=== PATIENT | male | born 1950 | race Caucasian/White ===

== ENCOUNTER 2020-08-08 09:51 | Outpatient (CLI) | payer MEDICARE, SELFPAY ==
[2020-08-08 10:53] LABS: Hematocrit 45.7 % (42.0-52.0); Hemoglobin 15.2 g/dL (14.0-18.0); Mean Corpuscular HGB Conc 33.3 g/dl (32-36); Mean Corpuscular Hemoglobin 30.8 pg (26-34); Mean Corpuscular Volume 92.5 fl (80-100); Mean Platelet Volume 12.3 fl (7.4-10.4); Platelet Count Result 132 k/mm3 (150-375); Red Blood Count 4.94 M/mm3 (4.6-6.20); Red Cell Distribution Width 13.3 % (11.5-14.5); White Blood Count 6.2 K/mm3 (4.5-10.0)
[2020-08-08 11:10] LABS: Alanine Aminotransferase 52 U/L (4-50); Albumin Level 4.3 g/dL (3.5-5.1); Alkaline Phosphatase 74 U/L (38-126); Anion Gap 7 mmol/L (8-16); Aspartate Amino Transferase 51 U/L (17-59); Bilirubin,Total 0.7 mg/dL (0.2-1.3); Blood Urea Nitrogen 21 mg/dL (9-20); Calcium 9.5 mg/dL (8.4-10.2); Carbon Dioxide 28 mmol/L (22-30); Chloride 106 mmol/L (98-107); Cholesterol 157 mg/dL (0-200); Estimated Glomerular Filt Rate 55; Glucose 123 mg/dL (75-110); HDL Direct 32 mg/dL; Potassium 4.6 mmol/L (3.4-5.0); Sodium 141 mmol/L (137-145); Triglycerides 380 mg/dL (<150)
[2020-08-08 11:22] LABS: LDL Cholesterol Direct 64 mg/dL
[2020-08-08 11:42] LABS: Prostate Specific Antigen 2.3 ng/mL (< OR = 4.0)
== END 2020-08-08 09:52 | disposition home or self-care (01) ==
PROVIDERS: PCP Physician Assistant; Referring Provider Internal Medicine Cardiovascular Disease; Visit Provider Physician Assistant
DX: R53.83 Other fatigue (principal); E78.5 Hyperlipidemia, unspecified; R35.1 Nocturia
CPT/HCPCS: 36415; 80053; 80061; 84153; 84443; 85027

== ENCOUNTER 2020-12-08 13:17 | Outpatient (CLI) | payer MEDICARE, SELFPAY | END 2020-12-08 13:18 | disposition home or self-care (01) | LOC: ANHCOVIDVC 13:17 | PROVIDERS: PCP Physician Assistant | DX: Z23 Encounter for immunization (principal) | CPT/HCPCS: 0001A; 91300 ==

== ENCOUNTER 2020-12-29 13:18 | Outpatient (CLI) | payer MEDICARE, SELFPAY | END 2020-12-29 13:19 | disposition home or self-care (01) | LOC: ANHCOVIDVC 13:18 | PROVIDERS: PCP Physician Assistant | DX: Z23 Encounter for immunization (principal) | CPT/HCPCS: 0002A; 91300 ==

== ENCOUNTER 2021-02-13 12:39 | Observation (INO) | payer MEDICARE, SELFPAY ==
[2021-02-13] VITALS (7 sets, daily range): BP systolic 124–161; BP diastolic 69–91; PULSE 61–72; RESP 16–24; TEMP 36.1–36.7; O2SAT 97–100; BMI 33.1
--- NOTE | ~2021-02-13 | XR_ITS ---
EXAMINATION: XR chest 2V DATE: 02/13/2021 13:30 INDICATION: Chest pain with inspiration. TECHNIQUE: Frontal and lateral views of the chest were obtained. COMPARISON: Chest 2 views 12/02/2016, chest CT 12/18/2016 FINDINGS: There are small pleural effusions. There are airspace opacities in right mid and lower lung zones and at right lung base. No pneumothorax. Cardiomegaly is noted. IMPRESSION: 1. Small pleural effusions. 2. Airspace opacities in right mid and lower lung zones and at left lung base, consistent with atelec tasis versus pneumonia. 3. Cardiomegaly. Reviewed, dictated and finalized at location B. IMPRESSION: 1. Small pleural effusions. 2. Airspace opacities in right mid and lower lung zones and at left lung base, consistent with atelectasis versus pneumonia. 3. Cardiomegaly.
--- NOTE | ~2021-02-13 | CT_ITS ---
EXAMINATION: CTA chest PE protocol EXAM DATE: 02/13/2021 20:45 INDICATION: Shortness of breath and chest pain with inspiration. TECHNIQUE: Spiral CTA of the chest (pulmonary arteries) was performed with 100 cc Omnipaque 350 intr avenous contrast injection. Images were acquired during the pulmonary arterial phase. Coronal maxi mum intensity projection 3D-reconstructions were created by the technologist on dedicated workstation . Axial, coronal and sagittal reformatted images were reviewed. The dose-length product (DLP) for t his examination was 818.24 mGy-cm. The exposure was tailored according to patient size (auto mA exp osure control), and iterative reconstruction (ASIR) was used as additional dose reduction technique. Comparison is made to prior examination from 12/18/2016. FINDINGS: Pulmonary arteries are well opacified and without intraluminal filling defects. No thora cic aortic dissection. There is cardiomegaly. There is small to moderate right, and a small left pleural effusion. There is adjacent segmental atelectasis. No suspicion of pneumonia or lung cancer. Tracheobronchial tree is pa tent. There is no mediastinal, hilar or axillary lymphadenopathy. There is no pneumothorax. T here is mild coronary arterial calcification, arterial sclerosis. There is hepatic steatosis. Periph erally calcified 9 mm splenic hilar aneurysm. There is mild thoracic spondylosis without osteoblasti c or osteolytic lesions identified. There is diffuse idiopathic skeletal hyperostosis. IMPRESSION: 1. Cardiomegaly, small to moderate right and small left pleural effusions. Adjacent segmental atelec tasis. 2. Splenic hilar 9 mm aneurysm. 3. Hepatic steatosis. 4. No pulmonary emboli. Reviewed, dictated and finalized at location A. IMPRESSION: 1. Cardiomegaly, small to moderate right and small left pleural effusions. Adj acent segmental atelectasis. 2. Splenic hilar 9 mm aneurysm. 3. Hepatic steatosis. 4. No pulmonary emboli.
--- NOTE | 2021-02-13 13:24 | ECG_ITS ---
Measurements Intervals [place] Rate: 64 P: 19 ID: [id number] QRS: -2 QRSD: 95 T: 22 QT: 426 QTc: 440 Interpretive Statements SINUS RHYTHM DELAYED PRECORDIAL R/S TRANSITION VOLTAGE CRITERIA FOR LVH BORDERLINE ECG Electronically Signed On 02-13-2021 13:59:23 CDT by Bryant Hernandez D.O.
[2021-02-13 13:55] LABS: Basophils Percent Auto 0.1 % (0.2-1.2); Eosinophils Absolute Auto 0.3 K/mm3 (0-0.3); Eosinophils Percent Auto 3.6 % (0-4.4); Hematocrit 39.6 % (42.0-52.0); Hemoglobin 13.1 g/dL (14.0-18.0); Immature Granulocyte Absolute 0.05 K/mm3 (0.00-0.031); Immature Granulocyte Percent A 0.7 % (0-0.5); Lymphocytes Absolute Auto 0.82 K/mm3 (0.9-3.2); Lymphocytes Percent Auto 10.9 % (18.3-44.2); Mean Corpuscular HGB Conc 33.1 g/dl (32-36); Mean Corpuscular Hemoglobin 30.3 pg (26-34); Mean Corpuscular Volume 91.5 fl (80-100); Mean Platelet Volume 11.7 fl (7.4-10.4); Monocytes Absolute Auto 0.7 K/mm3 (0.1-0.6); Monocytes Percent Auto 9.2 % (2.6-8.5); Neutrophils Absolute Auto 5.7 K/mm3 (1.3-6.7); Neutrophils Percent Auto 75.5 % (45.5-73.1); Platelet Count Result 119 k/mm3 (150-375); Red Blood Count 4.33 M/mm3 (4.6-6.20); White Blood Count 7.5 K/mm3 (4.5-10.0)
[2021-02-13 14:05] LABS: Partial Thromboplastin Time 26.8 SECONDS (22.3-36.8); Prothrombin Time 13.4 Seconds (11.1-14.7)
[2021-02-13 15:13] LABS: Anion Gap 6 mmol/L (8-16); Blood Urea Nitrogen 19 mg/dL (9-20); Calcium 8.9 mg/dL (8.4-10.2); Carbon Dioxide 28 mmol/L (22-30); Chloride 107 mmol/L (98-107); Estimated CRCL calculation 66 ml/min; Estimated Glomerular Filt Rate > 60; Glucose 109 mg/dL (75-110); Potassium 3.9 mmol/L (3.4-5.0); Sodium 141 mmol/L (137-145)
[2021-02-13 15:24] LABS: Troponin I < 0.012 ng/mL (0.000-0.034)
[2021-02-13 17:16] LABS: Troponin I < 0.012 ng/mL (0.000-0.034)
--- NOTE | 2021-02-13 17:20 | PC.NURSE ---
x1 week upper chest pain that comes with taking deep breath , PCP told pt to come to ED for eval, denies N/V, denies sick contacts. NSR on monitor, 97% RA sats non-labored respirations. 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
--- NOTE | 2021-02-13 17:29 | ED.GENADULT ---
HPI - General Adult General Chief complaint: Chest Pain Stated complaint: chest pain x1 week Time Seen by Provider: 02/13/21 17:16 Source: patient History of Present Illness HPI narrative: Patient is a 70 y/o male complaining of chest pain starting 1 week ago. He describes his pain as pressure and rates it as 3/10. There is no pain radiation. He states that taking a deep breath worsens the pain. Related Data Home Medications Medication Instructions Recorded Confirmed metoprolol succinate 25 mg 25 mg PO DAILY 01/11/20 02/13/21 tablet,extended release 24 hr ffvhjwpu-kcha-cnulx acid 400 1 tablet PO DAILY 01/11/20 02/13/21 mcg-lycopene 300 mcg-ginkgo 120 mg tablet psyllium husk 0.52 gram capsule 0.52 gm PO BID 01/11/20 02/13/21 glucosamine sulfate [Glucosamine] 500 mg PO BID 02/13/21 02/13/21 lisinopril 10 mg PO DAILY 02/13/21 02/13/21 Allergies Allergy/AdvReac Type Severity Reaction Status Date / Time No Known Allergies Allergy Verified 02/13/21 23:29 Review of Systems Constitutional: Constitutional: Denies chills, Denies fever(s), Denies headache(s) and Denies weakness Eyes: Eyes: Denies blurry vision ENT: Denies headache(s) and Denies neck pain Cardiovascular: Cardiovascular: Reports chest pain and Denies dyspnea Respiratory: Respiratory: Denies cough and Denies dyspnea Gastrointestinal: Gastrointestinal: Denies abdominal pain, Denies diarrhea, Denies nausea and Denies vomiting Genitourinary: Genitourinary: Denies hematuria and Denies dysuria Musculoskeletal: Musculoskeletal: Denies back pain and Denies neck pain Neurologic: Denies headache(s) and Denies weakness [facility] Surgical History Surgical History H/O repair of rotator cuff H/O umbilical hernia repair History of penile implant Family History Family History Mother No problems noted. Father Family history of congestive heart failure Sibling Alcohol abuse Liver transplant recipient Father No problems noted. Mother No problems noted. Sibling No problems noted. Sibling No problems noted. Sibling No problems noted. Social History Social History Smoking status: Never smoker Second hand tobacco smoke exposure: No Alcohol intake: current Substance use: never Spiritual care concerns: Yes (Shinto) Exam Const: General: no acute distress and well developed Orientation/consciousness: oriented to person, oriented to place, oriented to time and patient oriented x3 HENMT: Head: normocephalic Ears: external ears normal General nose exam: Normal external nose present Eyes: General: appearance normal, both eyes and all related structures Conjunctivae: conjunctivae normal Neck: Neck: normal visual inspection and full ROM Chest: Chest palpation & inspection: normal inspection of the chest and no tenderness Resp: Effort & Inspection: normal respiratory effort Auscultation: clear to auscultation bilaterally Cardio: Rate: regular rate Rhythm: regular rhythm GI: GI Palp: No abdominal tenderness and Yes Soft to palpation Skin: General skin exam: normal color and turgor normal Neuro: General: oriented to person, oriented to place, oriented to time and patient oriented x3 Cognition (Neuro): normal cognition Extrem: General: normal to inspection, full ROM and no pedal edema Psych: Appearance: grossly normal Mental Status: mental status grossly normal Affect: normal affect Course Consultations Consultation #1: Discussed with Dr. Nunez, who agrees to admit. Date: 02/13/21 Time: 21:41 Vital Signs Vital signs: Vital Signs Temperature 36.7 C 02/13/21 13:32 Pulse Rate 65 02/13/21 13:32 Respiratory Rate 16 02/13/21 13:32 Blood Pressure 124/69 02/13/21 13:32 Pulse Oximetry 100 02/13/21 13:32
[2021-02-13 19:03] LABS: D Dimer 0.76 ug/mL (<0.48)
[2021-02-13 21:03] LABS: NT Pro B Type Natriuretic Pept 126 pg/mL (5-100)
[2021-02-13] MEDS: FUROSEMIDE INJ 40 MG/4 ML VIAL 20 MG IV PUSH (22:15)
[2021-02-13 23:07] LABS: Troponin I < 0.012 ng/mL (0.000-0.034)
[2021-02-14] VITALS (12 sets, daily range): BP systolic 112–119; BP diastolic 64–71; PULSE 62–79; RESP 16–20; TEMP 35.7–36.4; O2SAT 92–100
--- NOTE | 2021-02-14 | ECHO_ITS ---
Patient Info Name: Aj Sosa Age: 70 years : 1950 Gender: Male Ht: 69 in Wt: 224 lbs BSA: 2.26 m2 HR: 56 bpm BP: 112 / 71 mmHg Technical Quality: Good Exam Date: 02/14/2021 1:04 PM Exam Location: [facility] Patient Status: Inpatient Admit Date: 02/13/2021 Staff Ordering Physician: Jay Dowling MD Supervisor Doping: Rikki Briceño, MONICA, RT Attending Provider: Wyatt Nunez MD Exam Type: CA echo doppler color flow Study Info Indications R07.89 - Other chest pain Complete two-dimensional, color flow and Doppler transthoracic echocardiogram is performed. Summary 1. Complete two-dimensional, color flow and Doppler transthoracic echocardiogram is performed. 2. Left ventricular systolic function is normal, estimated at 55-60%. 3. There is trace mitral valve regurgitation. Left Ventricle Left ventricular systolic function is normal, estimated at 55-60%. Left ventricular chamber dimension is normal. There is no increased left ventricular wall thickness. The left ventricular diastolic function is normal. Right Ventricle Right ventricular chamber dimension is normal. Right ventricular systolic function is normal. Left Atria Left atrial chamber dimension is normal. Right Atria Right atrial chamber dimension is normal. Aortic Valve The aortic valve is trileaflet. There is no aortic valve stenosis. There is no aortic valve regurgitation. Mitral Valve The mitral valve has normal leaflets. There is trace mitral valve regurgitation. There is no mitral valve stenosis. Tricuspid Valve There is mild tricuspid valve regurgitation. No pulmonary hypertension, estimated pulmonary arterial systolic pressure is 22 mmHg. Pericardium/Pleural The pericardium appears normal. There is no pericardial effusion. Left Ventricular Outflow Tract Name Value Normal LVOT 2D LVOT Diameter 2.4 cm LVOT Doppler LVOT Peak Gradient 3 mmHg LVOT Mean Gradient 2 mmHg LVOT VTI 20 cm LVOT VTI/AV VTI Ratio 0.9 LVOT Stroke Volume 93 ml LVOT CO 17.0 l/min LVOT CI 7.5 l/min/m2 Pulmonic Valve Name Value Normal PV Doppler PV Peak Gradient 4 mmHg Mitral Valve Name Value Normal MV Doppler MV Decel Bureau 128 cm/s2 MV PHT 99 ms MV Area (PHT) 2.2 cm2 4.0-5.0 MV Diastolic Function
--- NOTE | 2021-02-14 01:46 | ADMGEN ---
This patient, Aj Sosa Jr., was admitted to IMU Room 210-01. Patient/family oriented to hospital policies and general routines including ID bracelet, bed and alarms, visiting hours, pain management, procedures, bathroom and other care routines, personal items, smoking policy, room service/diet, and visiting hours. Information on how to activate the Rapid Response Team has been discussed. Patient/Family are encouraged to report perceived risks to care and to ask questions if they do not understand what they are told or what they should do.
--- NOTE | 2021-02-14 02:56 | ECG_ITS ---
Measurements Intervals [place] Rate: 68 P: 12 [place]: 171 QRS: 0 QRSD: 94 T: 22 QT: 412 QTc: 438 Interpretive Statements SINUS RHYTHM NORMAL ECG Electronically Signed On 02-14-2021 7:06:07 CDT by Bryant Hernandez D.O.
[2021-02-14] MEDS: HYDROcodone/acetaminophen (*CRX) 5-325 MG TABLET 1 TAB PO (03:35)
--- NOTE | 2021-02-14 03:35 | PM.IMHP ---
H&P: HPI History of Present Illness Date/Time: 02/14/21 03:35 Chief Complaint: chest pain Narrative: Patient is a 70 y/o male complaining of chest pain starting 1 week ago. He describes his pain as sharp shootin gpain whic is diffusely present all over his chest, occurs especially when he takes deep breath. he was told to take advil which he did but it did not help and he contacted his doctor again and advised him to come to the ED. he denes any cough or fever, chills, no leg swelling. no shortness of breath. ED evalutation with normal ekg, tronopnis negaitve. bnp mildly elevated. d dimer was elevated. CXR with bialteral small pleural effusion, airspace opacities in right mid and lwoer lungzone and at left lung basee, consistent with atelectasis vs pneumonia along with cardiomegatly. CT A done showed no PE, there is noted cardiomeglay, small to mdoerate righ tnad small left pleural effusion with segmental atelectasis, no pneuonia or lyphadnoeaphty or ptx. mild coroanry artery calcification arterial scleoris snoted. There is hepatic steatosis ntoed. he is admitted for further evlauation and management. Review of Systems Review of Systems: Narrative: - CONSTITUTIONAL: Denies weight loss, fever and chills. - HEENT: Denies changes in vision and hearing - RESPIRATORY: Denies SOB and cough. - CV: Denies palpitations and reports CP. - GI: Denies abdominal pain, nausea, vomiting and diarrhea. - : Denies dysuria and urinary frequency. - MSK: Denies myalgia and joint pain. - SKIN: Denies rash and pruritus. - NEUROLOGICAL: Denies headache and syncope. - PSYCHIATRIC: Denies recent changes in mood. Denies anxiety and depression. All systems reviewed & are unremarkable except as noted in HPI and below [facility] Surgical History Surgical History H/O repair of rotator cuff H/O umbilical hernia repair History of penile implant Family History Family History (Updated 02/13/21 @ 23:24 by Yomaira Moulton RN) Mother No problems noted. Father Family history of congestive heart failure Sibling Alcohol abuse Liver transplant recipient Father No problems noted. Mother No problems noted. Sibling No problems noted. Sibling No problems noted. Sibling No problems noted. Social History Social History Smoking status: Never smoker Second hand tobacco smoke exposure: No Alcohol intake: current Substance use: never Spiritual care concerns: Yes (Samaritan) Meds Home Medications and Allergies Home Medications Medication Instructions Recorded Confirmed Type metoprolol succinate 25 mg 25 mg PO DAILY 01/11/20 02/13/21 History tablet,extended release 24 hr jcxunlpn-sjsj-jfqgw acid 400 1 tablet PO DAILY 01/11/20 02/13/21 History mcg-lycopene 300 mcg-ginkgo 120 mg tablet psyllium husk 0.52 gram capsule 0.52 gm PO BID 01/11/20 02/13/21 History glucosamine sulfate [Glucosamine] 500 mg PO BID 02/13/21 02/13/21 History lisinopril 10 mg PO DAILY 02/13/21 02/13/21 History Allergies Allergy/AdvReac Type Severity Reaction Status Date / Time No Known Allergies Allergy Verified 02/13/21 23:29 Vital Signs Vital Signs - 24 hr 02/13/21 13:32 02/13/21 17:18 02/13/21 20:05 Temperature 98.1 F Pulse Rate 65 61 65 Respiratory Rate 16 20 24 H Blood Pressure 124/69 139/78 150/91 H Pulse Oximetry 100 97 99 02/13/21 21:25 02/13/21 22:53 02/13/21 23:05 Temperature 96.9 F L Pulse Rate 65 69 71 Respiratory Rate 20 20 20 Blood Pressure 142/84 H 161/88 H 150/82 H Pulse Oximetry 97 97 100 02/13/21 23:16 02/14/21 00:00 02/14/21 00:12 Temperature Pulse Rate 72 74 79 Respiratory Rate Blood Pressure Pulse Oximetry 92 02/14/21 00:13 02/14/21 02:00 02/14/21 02:44 Temperature Pulse Rate 79 73 66 Respiratory Rate Blood Pressure
[2021-02-14] MEDS: METOPROLOL SUCCINATE EXT REL 25 MG TABCR PO (08:13)
[2021-02-14] MEDS: FUROSEMIDE 20 MG TABLET PO (08:13)
[2021-02-14] MEDS: ASPIRIN 81 MG ENTERIC TABLET PO (08:13)
[2021-02-14] MEDS: lisinopriL 10 MG TABLET PO (08:13)
[2021-02-14] MEDS: THERAPEUTIC MULTIVITAMINS/MINERALS TAB (*BKC) 1 TABLET PO (08:13)
[2021-02-14] MEDS: AZITHROMYCIN 250 MG TABLET 500 MG PO (08:13)
[2021-02-14] MEDS: PANTOPRAZOLE 40 MG TABLET PO (08:14)
[2021-02-14] MEDS: ENOXAPARIN 40 MG/0.4 ML SYRINGE SUB-Q (08:14)
[2021-02-14 08:42] LABS: Hematocrit 41.6 % (42.0-52.0); Hemoglobin 13.7 g/dL (14.0-18.0); Mean Corpuscular HGB Conc 32.9 g/dl (32-36); Mean Corpuscular Hemoglobin 29.7 pg (26-34); Mean Corpuscular Volume 90.2 fl (80-100); Mean Platelet Volume 11.9 fl (7.4-10.4); Platelet Count Result 142 k/mm3 (150-375); Red Blood Count 4.61 M/mm3 (4.6-6.20); White Blood Count 7.4 K/mm3 (4.5-10.0)
--- NOTE | 2021-02-14 08:50 | PM.CNCAR ---
Assessment and Plan Assessment and plan (1) Atypical chest pain: Code(s): R07.89 - Other chest pain Status: Acute Assessment and Plan: Pain is atypical in nature seems to be pleuritic in nature likely is due to pleurisy, so far cardiac enzymes are negative, EKG is unremarkable. Will get echocardiogram to look for any structural heart disease, if it is negative he would benefit from outpatient stress test, he has follow-up with his own stem sizer at [place], he can follow up there, otherwise he can follow up in our office if he wishes to and we can do an outpatient stress test at that stage. Currently his pain is likely due to pleurisy, would recommend p.r.n. ibuprofen for that, and close follow-up for the effusion (2) BMI 35.0-35.9,adult: Code(s): Z68.35 - Body mass index [BMI] 35.0-35.9, adult Status: Acute (3) Bilateral pleural effusion: Code(s): J90 - Pleural effusion, not elsewhere classified Status: Acute Assessment and Plan: He has bilateral effusion, and he has signs of pleurisy, causing some chest pain, p.r.n. ibuprofen for that, he needs to see Pulmonary either as an inpatient now to get him connected or as close follow-up as an outpatient, to consider workup for that, with possible pleural tap at some point. Please arrange for pulmonary evaluation either as an outpatient or before discharge (4) Insomnia: Qualifiers: Insomnia type: unspecified Qualified Code(s): G47.00 - Insomnia, unspecified Code(s): G47.00 - Insomnia, unspecified Status: Acute (5) Obstructive sleep apnea: Code(s): G47.33 - Obstructive sleep apnea (adult) (pediatric) Status: Acute Additional Plan Thank you for allowing me to participate in this patient's care, I will be following up with you. Please do not hesitate to call me for any other inquiry History of Present Illness History of Present Illness Consult date/time: 02/14/21 08:50 70 YEARS OLD GENTLEMAN WITH HISTORY OF HYPERTENSION, came to the hospital because of chest pain and shortness breath. He started having chest pain yesterday mostly bilateral chest pain but more so on the left side, seems to be pleuritic in nature as a get worse with deep inspiration. Pain improved after he was admitted to the hospital. CT of the chest was done in view of suspected PE was negative for PE and showed no significant dilatation of the aorta, he has history of known small thoracic aneurysm for which he sees stem sizer at [place], last echo was done and showed aortic root at 4.3 cm, however on the CT the aortic root size seems to be normal. His CT showed bilateral pleural effusion more so on the left side. So far cardiac enzymes are negative and EKG is unremarkable. No history of known coronary artery disease he had stress test in the past but it has been several years. No orthopnea no PNDs, no leg swelling. He has history of obstructive sleep apnea for which he is on CPAP and he takes it with him anywhere he goes and he uses regularly Reason For Visit: chest pain, pleural effusion Review of Systems Constitutional: Constitutional: Reports fatigue and Denies fever(s) Cardiovascular: Cardiovascular: Reports as per HPI Respiratory: Respiratory: Reports as per HPI [facility] Surgical History Surgical History H/O repair of rotator cuff H/O umbilical hernia repair History of penile implant Family History Family History Mother No problems noted. Father Family history of congestive heart failure Sibling Alcohol abuse Liver transplant recipient Father No problems noted. Mother No problems noted. Sibling No problems noted. Sibling No problems noted. Sibling No problems noted. Social History Social History Smoking stat
[2021-02-14 08:53] LABS: Alanine Aminotransferase 18 U/L (4-50); Alkaline Phosphatase 66 U/L (38-126); Anion Gap 6 mmol/L (8-16); Aspartate Amino Transferase 25 U/L (17-59); Bilirubin,Total 1.2 mg/dL (0.2-1.3); Blood Urea Nitrogen 23 mg/dL (9-20); Calcium 9.3 mg/dL (8.4-10.2); Carbon Dioxide 29 mmol/L (22-30); Chloride 104 mmol/L (98-107); Estimated CRCL calculation 60 ml/min; Estimated Glomerular Filt Rate 60; Glucose 107 mg/dL (75-110); Sodium 139 mmol/L (137-145)
[2021-02-14] MEDS: IBUPROFEN 200 MG TABLET PO (10:37)
--- NOTE | 2021-02-14 11:47 | PM.CNPUL ---
Assessment and Plan Assessment and plan (1) Bilateral pleural effusion: Code(s): J90 - Pleural effusion, not elsewhere classified Status: Acute Assessment and Plan: Patient with bilateral right greater than left pleural effusion and bilateral pleuritic chest pain. Patient has no evidence of infection, fluid overload or renal failure at this time. The patient does have exposure to parakeets which started 1-2 days prior to him developing pleuritic chest pain. The right pleural effusion is large and considered small to moderate in size. The patient has no respiratory symptoms other than pleuritic chest pain and is not short of breath with room air saturations at 96%. At this point I do not feel there is a need for thoracentesis. I have recommended that he removed the parakeets from his house. I have recommended that he can use ibuprofen 600 mg p.o. Q 6-8 hours p.r.n. and Tylenol 1000 mg p.o. Q 6-8 hours p.r.n. to control his pain. He can follow up in the Pulmonary Clinic in 6 weeks and I will repeat a chest x-ray at that time. I gave him our business card and informed our radiology scheduler. Will sign off, please call for additional questions. (2) Obstructive sleep apnea: Code(s): G47.33 - Obstructive sleep apnea (adult) (pediatric) Status: Acute Assessment and Plan: Patient has long history of obstructive sleep apnea for approximately 20 years. Patient is clinically stable and his nasal mask CPAP of about 10 per his report. This helps him sleep and he feels more refreshed when he wears the mask. Recommend to continue his home machine while in the hospital. History of Present Illness History of Present Illness Consult date: 02/14/21 Requesting physician: Allie Montgomery MD Reason for consult: pleural effusion Chief complaint: chest pain, pleural effusion Narrative: This is a new patient consult for bilateral pleural effusions and pleuritic chest pain. This is a 70-year-old man with a history of obstructive sleep apnea for 20 years on nasal mask CPAP he believes at a pressure of 10 who presents with pleuritic chest pain. At baseline patient has no respiratory limitations in his activities of daily living. Patient states he can walk 2-4 blocks and stops for hip pain but has no respiratory complaints. Currently patient states that approximately 7 days ago he developed right-sided chest pain that was worsened with deep breathing coughing and sneezing. Patient then developed left-sided chest pain again worse with deep breathing coughing and sneezing that radiated to his left shoulder. The pain would come and go and was worse with respiratory exertion and certain movements. Worse when he lays down. Patient had a chest x-ray with bilateral pleural effusions and a CT angiogram of the chest that showed no pulmonary embolism and right greater than left pleural effusion with associated atelectasis but no evidence of a pneumonia. Patient denies fever, chills, rigors, phlegm production, hemoptysis. Patient denies any dyspnea on exertion or rest shortness of breath. Patient denies any pedal edema, has chronic 1 pillow orthopnea and has no paroxysmal nocturnal dyspnea. Patient has no weight loss. Patient denies rashes or arthritis. Interestingly patient tells me that 1-2 days before the chest pain started they brought a parakeet into his bedroom which was going to be a gift for his [id number]. This parakeet approximately 4 days after they purchased it. The family then bought a pair of parakeets from the same pet store and brought them home and put them in the patient's bedroom. This para parakeets was brought to the house about 4-5 days prior to presentation. They gave the parakeets to the [id number] move them out of the bedroom about 3 days prior to admission. One of these parakeets 2 days prior to admission. Patient also has a dog for 8 years, 1 cat for 4-[address] for 1-2 years.
[2021-02-14] MEDS: ACETAMINOPHEN 500 MG TABLET 1000 MG PO (13:25)
--- NOTE | 2021-02-14 13:55 | PM.IMPN ---
Progress Note: A&P Assessment and Plan (1) Bilateral pleural effusion: Code(s): J90 - Pleural effusion, not elsewhere classified Status: Acute (2) Cardiomegaly: Code(s): I51.7 - Cardiomegaly Status: Acute (3) Chest pain: Code(s): R07.9 - Chest pain, unspecified Status: Acute Additional Plan # Pleuritic chest pain:cta negative. ekg within normal limits. troponin negative. cta with cardiomegaly and small to moderate pleural effusion noted. ? new cardiomyopathy and chf. will get echo and cardiac evaluation. a dose of lasix given in the ed. will await cardiac evaluation. not sure if there is any underlhying pneumoina. no pumonary symptosm per se. however symtposm suggestive of pleuritis. ? GERD related. will place on ppi. place on aspirin 81 mg po daily. will empirically place on antibiotics (azithromycin) though no wbc count or fever or cough noted. may need pulmonary evaluation. # bilateral plelural effusion: ? chf related. diuresis gentle. echo. cardiac evaluation. follow up chest xray. # ANGEL on CPAP # hx of repair of rotator cuff # hx of umbilcial hernia repair # HTN:home medications. # Ascending aortic dilation, 4 cm, being followed as op basis, follows cardiology. # ECHO 05/25: LA midlly dilated, Normal RV size and function, LV cavity is nromal. mild concentric LV hypertrophy hyperdynamic LVEF 73%. # DVT proph: lovenox Subjective Date/time seen: 02/14/21 13:55 Objective Data Vital Signs Vital Signs: Vital Signs - 24 hr 02/13/21 17:18 02/13/21 20:05 02/13/21 21:25 Temperature Pulse Rate 61 65 65 Respiratory Rate 20 24 H 20 Blood Pressure 139/78 150/91 H 142/84 H Pulse Oximetry 97 99 97 02/13/21 22:53 02/13/21 23:05 02/13/21 23:16 Temperature 96.9 F L Pulse Rate 69 71 72 Respiratory Rate 20 20 Blood Pressure 161/88 H 150/82 H Pulse Oximetry 97 100 02/14/21 00:00 02/14/21 00:12 02/14/21 00:13 Temperature Pulse Rate 74 79 79 Respiratory Rate Blood Pressure Pulse Oximetry 92 92 02/14/21 02:00 02/14/21 02:44 02/14/21 04:00 Temperature 97.6 F Pulse Rate 73 66 71 Respiratory Rate 18 Blood Pressure 119/70 Pulse Oximetry 94 100 02/14/21 06:00 02/14/21 08:00 02/14/21 08:13 Temperature Pulse Rate 65 64 67 Respiratory Rate Blood Pressure Pulse Oximetry 96 02/14/21 08:32 02/14/21 10:00 02/14/21 12:00 Temperature 96.3 F L 96.8 F L Pulse Rate 65 68 62 Respiratory Rate 20 16 Blood Pressure 112/71 114/64 Pulse Oximetry 96 96 Intake/Output Intake/Output: Intake & Output 02/11/21 02/12/21 02/13/21 02/14/21 23:59 23:59 23:59 23:59 Intake Total 960 Output Total 1500 Balance -540 Meds/Results Medications: Active Medications Generic Name Dose Route Start Last Admin Trade Name Freq PRN Reason Stop Dose Admin Acetaminophen 1,000 mg 02/14/21 12:31 02/14/21 13:25 Acetaminophen 500 Mg Tablet PO 1,000 mg Q6H PRN Administration Mild Pain (1-3) or Fever Aspirin 81 mg 02/14/21 09:00 02/14/21 08:13 Aspirin 81 Mg Enteric Tablet PO 81 mg QAM MILAGROS Administration Azithromycin 500 mg 02/14/21 09:00 02/14/21 08:13 Azithromycin 250 Mg Tablet PO 500 mg DAILY MILAGROS Administration Enoxaparin Sodium 40 mg 02/14/21 09:00 02/14/21 08:14 Enoxaparin 40 Mg/0.4 Ml Syringe SUB-Q 40 mg DAILY MILAGROS Administration Furosemide 20 mg 02/14/21 09:00 02/14/21 08:13 Furosemide 20 Mg Tablet PO 20 mg DAILY MILAGROS Administration Ibuprofen 600 mg 02/14/21 12:04 Ibuprofen 600 Mg Tablet PO Q6H PRN Muscle/Joint Pain Lisinopril 10 mg 02/14/21 09:00 02/14/21 08:13 Lisinopril 10 Mg Tablet PO 10 mg DAILY MILAGROS Administration Metoprolol Succinate 25 mg 02/14/21 09:00 02/14/21 08:13 Metoprolol Succinate Ext Rel 25 Mg Tabcr PO 25 mg DAILY MILAGROS Administration Multivitamins/Calcium 1 tablet 02/14/21 09:00 02/14/21 08:13 Therapeutic Multivitamins/Mine
--- NOTE | 2021-02-14 18:44 | PM.DS ---
DS: Admitting Diagnosis Admitting Diagnosis Admitting Diagnosis: Chest pain DS: Discharge Diagnosis Discharge Diagnosis (1) Bilateral pleural effusion: Code(s): J90 - Pleural effusion, not elsewhere classified Status: Acute (2) Cardiomegaly: Code(s): I51.7 - Cardiomegaly Status: Acute (3) Chest pain: Code(s): R07.9 - Chest pain, unspecified Status: Acute DS: Summary Hospital Course Reason for hospitalization: Chief Complaint: chest pain Narrative: Patient is a 70 y/o male complaining of chest pain starting 1 week ago. He describes his pain as sharp shootin gpain whic is diffusely present all over his chest, occurs especially when he takes deep breath. he was told to take advil which he did but it did not help and he contacted his doctor again and advised him to come to the ED. he denes any cough or fever, chills, no leg swelling. no shortness of breath. ED evalutation with normal ekg, tronopnis negaitve. bnp mildly elevated. d dimer was elevated. CXR with bialteral small pleural effusion, airspace opacities in right mid and lwoer lungzone and at left lung basee, consistent with atelectasis vs pneumonia along with cardiomegatly. CT A done showed no PE, there is noted cardiomeglay, small to mdoerate righ tnad small left pleural effusion with segmental atelectasis, no pneuonia or lyphadnoeaphty or ptx. mild coroanry artery calcification arterial scleoris snoted. There is hepatic steatosis ntoed. he is admitted for further evlauation and management. Hospital Course: Patient is 70-year-old male presented emergency department with a complaint chest pain patient was seen by Cardiology stated 3 sets of cardiac enzymes are negative and there is no acute changes on EKG myocardial infarction is ruled out, suspect patient chest pain is caused by pleuritic chest pain due to bilateral pleural effusion recommended to consult weapons and tactics instructor, patient was seen by weapons and tactics instructor suggested patient does not need thoracentesis, and does have sleep apnea and will need further follow-up as an outpatient, patient is clinically stable will discharge the patient today Status at Discharge Functional status at discharge: independent ambulation Overall status at discharge: patient is back to baseline Time Spent with Patient Time attestation: Total time spent providing and/or coordinating discharge services: Patient was seen and examined at the time of the discharge Condition at discharge is stable Code status: Full code. Time spent preparing discharge summary, discharge medications, discussing discharge planning with caseworker intake and patient is 35 minutes. Time spent: Greater than 30 minutes Exam Narrative: Exam Narrative: Moderately obese Patient is comfortable, NAD HEENT: eyes are clear and none icteric LUNGS:CTA HEART: RR S1S2 ABD: BS+, Soft and nontender Lower extremities: no edema SKIN: nonjaundiced Neuro: grossly intact. DS: Data Data Completed and Pending Labs on day of discharge: Labs from last 24 hours 02/14/21 02/14/21 02/13/21 07:50 07:50 22:41 WBC 7.4 RBC 4.61 Hgb 13.7 L Hct 41.6 L MCV 90.2 MCH 29.7 MCHC 32.9 RDW 13.0 Plt Count 142 L MPV 11.9 H D-Dimer Sodium 139 Potassium 4.0 Chloride 104 Carbon Dioxide 29 Anion Gap 6 L BUN 23 H Creatinine 1.20 Estim Creat Clear Calc 60 Estimated GFR 60 Glucose 107 Calcium 9.3 Total Bilirubin 1.2 AST 25 ALT 18 Alkaline Phosphatase 66 Troponin I < 0.012 NT-Pro-B Natriuret Pep Total Protein 7.0 Albumin 4.0 02/13/21 02/13/21 18:28 13:44 WBC RBC Hgb Hct MCV MCH MCHC RDW Plt Count MPV D-Dimer 0.76 H Sodium Potassium Chloride Carbon Dioxide Anion Gap BUN Creatinine Estim Creat Clear Calc Estimated GFR Glucose Calcium Total Bilirubin AST ALT Alkaline Phosphatase Troponin I NT-Pro-B Natriure
== END 2021-02-14 13:54 | disposition home or self-care (01) ==
LOC: ANHED 17:17 → ANHIMU 02-14 00:28
PROVIDERS: Admitting Provider Internal Medicine; Emergency Provider Emergency Medicine; PCP Physician Assistant; Visit Provider Family Medicine
DX: R07.89 Other chest pain (principal); J90 Pleural effusion, not elsewhere classified; G47.33 Obstructive sleep apnea (adult) (pediatric); R06.02 Shortness of breath; I25.10 Atherosclerotic heart disease of native coronary artery without angina pectoris; I11.9 Hypertensive heart disease without heart failure
CPT/HCPCS: 36415; 71046; 71275; 80048; 80053; 83880; 84484; 85025; 85027; 85380; 85610; 85730; 93005; 93306; 96372; 96374; 99285; A9270; G0378; J1650; J1940; Q9967

== ENCOUNTER 2021-02-20 02:40 | Emergency (ER) | payer MEDICARE, SELFPAY ==
[2021-02-20] VITALS (22 sets, daily range): BP systolic 144–164; BP diastolic 76–91; PULSE 64–85; RESP 16–25; TEMP 36.1; O2SAT 91–98
--- NOTE | ~2021-02-20 | CT_ITS ---
EXAMINATION: CT abdomen pelvis w con DATE: 02/20/2021 04:58 INDICATION: Abdominal pain. TECHNIQUE: Computed tomography (CT) of the abdomen and pelvis was performed with 100 mL Omnipaque 350 intravenous contrast. Automated exposure control and iterative reconstruction technique were employe d. The dose-length product was 1349.16 mGy-cm. COMPARISON: CT abdomen and pelvis 12/25/2016 FINDINGS: The visualized portions of the lung bases demonstrate mild atelectasis. There are small ple ural effusions. The heart size is normal. There are coronary artery calcifications. No pericardial ef fusion. Calcified left hilar lymph nodes are consistent with old granulomatous disease. There are cys ts in the liver measuring up to 5 mm. There is mild splenomegaly measuring 13.5 cm, which may be seco ndary to obesity. Calcifications in the spleen are consistent with old granulomatous disease. The gal lbladder, pancreas, and adrenal glands are normal. There are cysts in the kidneys measuring up to 8 m m on the left. A penile prosthesis is noted. There is diverticulosis of the colon without evidence of diverticulitis. There are no dilated loops of bowel. The appendix is normal. There are no pathologic ally enlarged lymph nodes. There is trace ascites. There is moderate lumbar spondylosis. IMPRESSION: 1. Small pleural effusions. Reviewed, dictated and finalized at location A. IMPRESSION: 1. Small pleural effusions.
--- NOTE | 2021-02-20 03:04 | ED.GENADULT ---
HPI - General Adult General Chief complaint: Abdominal Pain Stated complaint: ABD PAIN X5D Time Seen by Provider: 02/20/21 02:57 History of Present Illness HPI narrative: Patient 70-year-old gentleman who presents the emergency department with chief complaint of abdominal pain. The patient reports over the last 5 days discomfort is developed throughout his entire abdomen. The patient reports that it radiates from his sides to the midline and then radiates from the epigastrium to the pelvis. Patient reports he was taking a lot of ibuprofen when he was having chest discomfort and the patient reports that he is concerned that this may be related to taking ibuprofen. Patient denies vomiting denies diarrhea reports that his stools been a little darker than normal. Patient reports he is not on any blood thinners. Patient denies fever denies chills Related Data Home Medications Medication Instructions Recorded Confirmed metoprolol succinate 25 mg 25 mg PO DAILY 01/11/20 02/19/21 tablet,extended release 24 hr dgsunyuc-wqnp-vcvho acid 400 1 tablet PO DAILY 01/11/20 02/19/21 mcg-lycopene 300 mcg-ginkgo 120 mg tablet psyllium husk 0.52 gram capsule 0.52 gm PO BID 01/11/20 02/19/21 glucosamine sulfate [Glucosamine] 500 mg PO BID 02/13/21 02/19/21 lisinopril 10 mg PO DAILY 02/13/21 02/19/21 Allergies Allergy/AdvReac Type Severity Reaction Status Date / Time No Known Allergies Allergy Verified 02/20/21 02:41 Review of Systems Review of Systems: Narrative: A 10 system review of systems was completed on the patient and is negative except for what is stated in the HPI. Nursing and ancillary documentation was reviewed. [facility] Surgical History Surgical History H/O repair of rotator cuff H/O umbilical hernia repair History of penile implant Family History Family History Mother No problems noted. Father Family history of congestive heart failure Sibling Alcohol abuse Liver transplant recipient Father No problems noted. Mother No problems noted. Sibling No problems noted. Sibling No problems noted. Sibling No problems noted. Social History Social History Smoking status: Never smoker Second hand tobacco smoke exposure: No Alcohol intake: current Substance use: never Spiritual care concerns: Yes (Episcopal) Exam Narrative: Exam Narrative: GENERAL: Well-appearing, well-nourished, and in no acute distress. HEAD: Normocephalic, atraumatic. EYES: PERRLA and EOMI. ENT: Nares clear, no rhinorrhea or epistaxis. Mucous membranes moist. NECK: Supple. CHEST: Clear to auscultation. No respiratory distress. HEART: Regular rate and rhythm. No murmur heard. Normal peripheral pulses. ABDOMEN: Soft, nontender, nondistended, normal active bowel sounds. EXTREMITIES: Normal range of motion. No edema. SKIN: Warm, dry, no rash. NEURO: No focal deficits. Alert and oriented x3. PSYCH: Normal mood and affect. Course Vital Signs Vital signs: Vital Signs Temperature 36.1 C L 02/20/21 02:42 Pulse Rate 70 02/20/21 02:42 Respiratory Rate 16 02/20/21 02:42 Blood Pressure 146/80 H 02/20/21 02:42 Pulse Oximetry 98 02/20/21 02:42 Temperature 36.1 C L 02/20/21 02:42 Pulse Rate 67 02/20/21 05:30 Respiratory Rate 23 H 02/20/21 05:30 Blood Pressure 146/76 H 02/20/21 04:31 Pulse Oximetry 94 02/20/21 05:30 Medical Decision Making Vital Signs Vital Signs: Vital Signs Temperature 36.1 C L 02/20/21 02:42 Pulse Rate 70 02/20/21 02:42 Respiratory Rate 16 02/20/21 02:42 Blood Pressure 146/80 H 02/20/21 02:42 Pulse Oximetry 98 02/20/21 02:42 Temperature 36.1 C L 02/20/21 02:42 Pulse Rate 67 02/20/21 05:30 Respiratory Rate 23 H
[2021-02-20 03:09] LABS: Basophils Percent Auto 0.2 % (0.2-1.2); Eosinophils Absolute Auto 0.5 K/mm3 (0-0.3); Eosinophils Percent Auto 5.7 % (0-4.4); Hematocrit 40.3 % (42.0-52.0); Immature Granulocyte Percent A 1.2 % (0-0.5); Lymphocytes Absolute Auto 1.06 K/mm3 (0.9-3.2); Lymphocytes Percent Auto 12.4 % (18.3-44.2); Mean Corpuscular HGB Conc 32.3 g/dl (32-36); Mean Corpuscular Hemoglobin 29.9 pg (26-34); Mean Corpuscular Volume 92.6 fl (80-100); Mean Platelet Volume 10.7 fl (7.4-10.4); Monocytes Absolute Auto 0.7 K/mm3 (0.1-0.6); Monocytes Percent Auto 8.1 % (2.6-8.5); Neutrophils Absolute Auto 6.2 K/mm3 (1.3-6.7); Neutrophils Percent Auto 72.4 % (45.5-73.1); Platelet Count Result 186 k/mm3 (150-375); Red Blood Count 4.35 M/mm3 (4.6-6.20); Red Cell Distribution Width 12.8 % (11.5-14.5); White Blood Count 8.6 K/mm3 (4.5-10.0)
[2021-02-20 03:14] LABS: Alanine Aminotransferase 15 U/L (4-50); Albumin Level 3.9 g/dL (3.5-5.1); Alkaline Phosphatase 79 U/L (38-126); Anion Gap 7 mmol/L (8-16); Aspartate Amino Transferase 25 U/L (17-59); Bilirubin,Total 0.3 mg/dL (0.2-1.3); Blood Urea Nitrogen 25 mg/dL (9-20); Carbon Dioxide 28 mmol/L (22-30); Chloride 105 mmol/L (98-107); Estimated CRCL calculation 61 ml/min; Estimated Glomerular Filt Rate 60; Glucose 117 mg/dL (75-110); Lipase 51 U/L (23-300); Potassium 4.1 mmol/L (3.4-5.0); Sodium 140 mmol/L (137-145)
[2021-02-20] MEDS: ONDANSETRON INJ 4 MG/2 ML VIAL IV PUSH (03:21)
[2021-02-20] MEDS: SODIUM CHLORIDE 0.9% IV 1,000 ML 999 ML IV CONT (03:21)
[2021-02-20] MEDS: PANTOPRAZOLE SODIUM IV 40 MG VIAL IV PUSH (03:21)
[2021-02-20] MEDS: MORPHINE SULFATE (*CRX) 4 MG/ML INJ IV PUSH (03:21)
[2021-02-20 04:24] LABS: Add Urine Microscopic? NO; Appearance Urine Clear (Clear); Bilirubin Urine Negative (Negative); Blood Urine Negative (Negative); Color Urine Yellow (Yellow); Glucose Urine UA Negative (Negative); Ketones Urine Negative (Negative); Leukocyte Esterase Ur Negative LEU/UL (Negative); Nitrate Urine Negative (Negative); Protein Urine Negative (Negative); Specific Grav Ur 1.023 (1.001-1.035); Urobilinogen Urine Negative mg/dL (<2.0)
== END 2021-02-20 05:54 | disposition home or self-care (01) ==
PROVIDERS: Emergency Provider Emergency Medicine; PCP Physician Assistant
DX: R10.84 Generalized abdominal pain (principal); K29.00 Acute gastritis without bleeding
CPT/HCPCS: 36415; 74177; 80053; 81003; 83690; 85025; 96361; 96374; 96375; 99284; C9113; J2270; J2405; J7030; Q9967

== ENCOUNTER 2021-02-21 14:33 | Outpatient (CLI) | payer MEDICARE, SELFPAY ==
[2021-02-21 15:12] LABS: Add Urine Microscopic? NO; Appearance Urine Clear (Clear); Bilirubin Urine Negative (Negative); Blood Urine Negative (Negative); Color Urine Yellow (Yellow); Glucose Urine UA Negative (Negative); Ketones Urine Negative (Negative); Leukocyte Esterase Ur Negative LEU/UL (NEGATIVE); Nitrate Urine Negative (Negative); Protein Urine Negative (Negative); Specific Grav Ur 1.026 (1.001-1.035); Urobilinogen Urine Negative mg/dL (<2.0)
[2021-02-21 15:26] LABS: Cholesterol 117 mg/dL (0-200); HDL Direct 28 mg/dL; Triglycerides 218 mg/dL (<150)
[2021-02-21 15:37] LABS: LDL Cholesterol Direct 57 mg/dL
== END 2021-02-21 14:34 | disposition home or self-care (01) ==
LOC: ANHLAB 14:43
PROVIDERS: PCP Physician Assistant; Visit Provider Physician Assistant
DX: E78.1 Pure hyperglyceridemia (principal); R10.9 Unspecified abdominal pain
CPT/HCPCS: 36415; 80061; 81003; 87086; 87088

== ENCOUNTER 2021-02-21 18:57 | Emergency (ER) | payer MEDICARE, SELFPAY ==
--- NOTE | ~2021-02-21 | XR_ITS ---
EXAMINATION: XR chest 1V portable INDICATION: Lower abdominal pain, nausea and vomiting TECHNIQUE: Portable AP chest at 2007 hours COMPARISON: 02/13/2021 FINDINGS: Cardiomegaly is noted. There is no pleural effusion or pneumothorax. There are minimal airs pace opacities of the midlung zones and lung bases with slight improvement in the right lung base. IMPRESSION: 1. Cardiomegaly. 2. Airspace opacities of the mid and lower lung zones, consistent with atelectasis versus pneumonia. Reviewed, dictated and finalized at location A. IMPRESSION: 1. Cardiomegaly. 2. Airspace opacities of the mid and lower lung zones, consistent with atelecta sis versus pneumonia.
[2021-02-21 19:09] VITALS: BP 115/64; PULSE 68; RESP 18; TEMP 36.4; O2SAT 97
[2021-02-21 19:25] LABS: Basophils Percent Auto 0.3 % (0.2-1.2); Eosinophils Absolute Auto 0.5 K/mm3 (0-0.3); Eosinophils Percent Auto 5.7 % (0-4.4); Hematocrit 39.4 % (42.0-52.0); Hemoglobin 12.7 g/dL (14.0-18.0); Immature Granulocyte Absolute 0.08 K/mm3 (0.00-0.031); Lymphocytes Absolute Auto 0.98 K/mm3 (0.9-3.2); Lymphocytes Percent Auto 12.4 % (18.3-44.2); Mean Corpuscular HGB Conc 32.2 g/dl (32-36); Mean Corpuscular Hemoglobin 29.9 pg (26-34); Mean Corpuscular Volume 92.7 fl (80-100); Mean Platelet Volume 10.2 fl (7.4-10.4); Monocytes Absolute Auto 0.6 K/mm3 (0.1-0.6); Monocytes Percent Auto 7.5 % (2.6-8.5); Neutrophils Absolute Auto 5.8 K/mm3 (1.3-6.7); Neutrophils Percent Auto 73.1 % (45.5-73.1); Platelet Count Result 191 k/mm3 (150-375); Red Blood Count 4.25 M/mm3 (4.6-6.20); White Blood Count 7.9 K/mm3 (4.5-10.0)
[2021-02-21 19:41] LABS: Alanine Aminotransferase 16 U/L (4-50); Albumin Level 3.7 g/dL (3.5-5.1); Alkaline Phosphatase 76 U/L (38-126); Anion Gap 6 mmol/L (8-16); Aspartate Amino Transferase 26 U/L (17-59); Bilirubin,Total 0.4 mg/dL (0.2-1.3); Blood Urea Nitrogen 23 mg/dL (9-20); Calcium 8.9 mg/dL (8.4-10.2); Carbon Dioxide 30 mmol/L (22-30); Chloride 104 mmol/L (98-107); Estimated CRCL calculation 56 ml/min; Estimated Glomerular Filt Rate 55; Glucose 133 mg/dL (75-110); Lipase 58 U/L (23-300); Potassium 4.1 mmol/L (3.4-5.0); Sodium 140 mmol/L (137-145)
--- NOTE | 2021-02-21 19:51 | ED.GENADULT ---
HPI - General Adult General Chief complaint: Abdominal Pain Stated complaint: lower abdominal pain Time Seen by Provider: 02/21/21 19:35 Source: patient, family, RN notes reviewed and old records reviewed Mode of arrival: ambulatory Limitations: no limitations History of Present Illness HPI narrative: Patient is a 70-year-old male who presents to emergency department for evaluation of continued abdominal pain patient's pain has been present for roughly 5 days was seen Saturday in the emergency department had CAT scan and blood work performed which were unremarkable was discharged home saw primary care earlier today had blood work performed and then was referred back to emergency department due to continued generalized abdominal pain. Patient notes that today he did eat fast food and had chicken noodle soup. Patient notes that he has slight straining but a normal bowel movement. Patient denies similar occurrence in the past. Patient had had some upper respiratory issues in the recent past was evaluated by primary care and cardiology no but has since been cleared patient has no URI symptoms. Related Data Home Medications Medication Instructions Recorded Confirmed metoprolol succinate 25 mg 25 mg PO DAILY 01/11/20 02/21/21 tablet,extended release 24 hr peaucfny-nqox-ajchi acid 400 1 tablet PO DAILY 01/11/20 02/21/21 mcg-lycopene 300 mcg-ginkgo 120 mg tablet psyllium husk 0.52 gram capsule 0.52 gm PO BID 01/11/20 02/21/21 glucosamine sulfate [Glucosamine] 500 mg PO BID 02/13/21 02/21/21 lisinopril 10 mg PO DAILY 02/13/21 02/21/21 Allergies Allergy/AdvReac Type Severity Reaction Status Date / Time No Known Allergies Allergy Verified 02/21/21 19:13 Review of Systems Review of Systems: All systems reviewed & are unremarkable except as noted in HPI and below PMFSH Past Medical History Medical History (Updated 02/21/21 @ 21:04 by Jed Benitez PA-C) Hypertension Surgical History Surgical History H/O repair of rotator cuff H/O umbilical hernia repair History of penile implant Family History Family History Mother No problems noted. Father Family history of congestive heart failure Sibling Alcohol abuse Liver transplant recipient Father No problems noted. Mother No problems noted. Sibling No problems noted. Sibling No problems noted. Sibling No problems noted. Social History Social History Smoking status: Never smoker Second hand tobacco smoke exposure: No Alcohol intake: current Substance use: never Spiritual care concerns: Yes (Taoist) Exam Narrative: Exam Narrative: GENERAL: Well-appearing, well-nourished, and in no acute distress. HEAD: Normocephalic, atraumatic. EYES: PERRLA and EOMI. ENT: Nares clear, no rhinorrhea or epistaxis. Mucous membranes moist. CHEST: Clear to auscultation. No respiratory distress. No wheezes rales or rhonchi HEART: Regular rate and rhythm. No murmur heard. Normal peripheral pulses. ABDOMEN: Soft, generalized tenderness no rebound or guarding, distended, normal active bowel sounds. EXTREMITIES: Normal range of motion. No edema. SKIN: Warm, dry, no rash. NEURO: No focal deficits. Alert and oriented x3. Cranial nerves II through XII grossly intact. PSYCH: Normal mood and affect. Course Course Emergency Course: Patient evaluated in the emergency department for abdominal pain patient has had recent issues to include upper respiratory initially had CTA echocardiogram and abdomen pelvis CAT scans unsure as to the etiology of his symptoms. Patient notes that he did have a parakeet that is unsure as to whether or not this is related but his symptoms began at that time. Patient will follow with primary care for further evaluation miguel
[2021-02-21] MEDS: SODIUM CHLORIDE 0.9% IV 1,000 ML 999 ML IV CONT (20:34)
[2021-02-21] MEDS: HYOSCYAMINE SULFATE 0.125 MG TABLET PO (20:34)
[2021-02-21] MEDS: FAMOTIDINE 20 MG/2 ML VIAL IV PUSH (20:34)
[2021-02-21 20:54] LABS: Add Urine Microscopic? NO; Appearance Urine Clear (Clear); Bilirubin Urine Negative (Negative); Blood Urine Negative (Negative); Color Urine Yellow (Yellow); Glucose Urine UA Negative (Negative); Ketones Urine Negative (Negative); Leukocyte Esterase Ur Negative LEU/UL (Negative); Nitrate Urine Negative (Negative); Protein Urine Negative (Negative); Specific Grav Ur 1.027 (1.001-1.035); Urobilinogen Urine Negative mg/dL (<2.0)
[2021-02-21 21:44] VITALS: BP 123/79; PULSE 62; RESP 15; O2SAT 97
[2021-02-21 21:56] LABS: Lactic Acid Reflex 0.9 mmol/L (0.7-2.1)
[2021-02-21 23:01] VITALS: BP 129/87; PULSE 68; RESP 17; O2SAT 98
== END 2021-02-21 23:02 | disposition home or self-care (01) ==
PROVIDERS: Emergency Medicine; Emergency Medicine Emergency Medical Services; Emergency Provider Emergency Medicine; PCP Physician Assistant
DX: J18.9 Pneumonia, unspecified organism (principal); R10.30 Lower abdominal pain, unspecified; I10 Essential (primary) hypertension
CPT/HCPCS: 36415; 71045; 80053; 80061; 81003; 83605; 83690; 85025; 87086; 87088; 96365; 96375; 99284; A9270; J0131; J7030

== ENCOUNTER → 2021-03-11 08:28 | Outpatient (CLI) | payer MEDICARE, SELFPAY ==
[2021-03-11 19:38] LABS: SARS-CoV-2 RNA PCR Negative
== END ==
PROVIDERS: PCP Physician Assistant; Visit Provider Internal Medicine Gastroenterology
DX: Z01.812 Encounter for preprocedural laboratory examination (principal); Z20.822 Contact with and (suspected) exposure to COVID-19
CPT/HCPCS: C9803; U0003; U0005

== ENCOUNTER 2021-03-14 01:45 | Day surgery (SDC) | payer MEDICARE, SELFPAY ==
[2021-03-07 10:39] VITALS: BMI 33.8
[2021-03-14 09:09] VITALS: BP 134/82; PULSE 72; RESP 20; TEMP 36.1; O2SAT 98; BMI 33.4
[2021-03-14] MEDS: LACTATED RINGERS 1,000 ML 150 ML IV CONT (09:28)
--- NOTE | 2021-03-14 09:30 | WPDANESEPPF ---
Anes - Initial Pre Proc Eval Procedure: Operation Date: 03/14/21 10:00 Proposed Procedures p Esophagogastroduodenoscopy - Mejia Adames MD Date/Time: 03/14/21 09:30 Surgeon: Mejia Adames MD Pre Op Diagnosis: Gastritis Patient Data Age: 70 Gender: M Height: 5 ft 9 in Weight: 102.7 kg Last Vital Signs Temp 97.0 F L 03/14/21 09:09 Pulse 72 03/14/21 09:09 Resp 20 03/14/21 09:09 BP 134/82 03/14/21 09:09 Pulse Ox 98 03/14/21 09:09 Allergies Allergy/AdvReac Type Severity Reaction Status Date / Time No Known Allergies Allergy Verified 03/14/21 09:08 Home Medications Medication Instructions Recorded Confirmed Type metoprolol succinate 25 mg 25 mg PO DAILY 01/11/20 03/14/21 History tablet,extended release 24 hr ekeairlv-uvah-awsif acid 400 1 tablet PO DAILY 01/11/20 03/14/21 History mcg-lycopene 300 mcg-ginkgo 120 mg tablet psyllium husk 0.52 gram capsule 0.52 gm PO BID 01/11/20 03/14/21 History glucosamine sulfate [Glucosamine] 500 mg PO BID 02/13/21 03/14/21 History lisinopril 10 mg PO DAILY 02/13/21 03/14/21 History acetaminophen 1,000 mg PO Q6H PRN tablet 02/14/21 03/07/21 Rx docusate sodium 100 mg tablet 200 mg PO QHS #60 tablet 02/17/21 03/14/21 Rx pantoprazole [Protonix] 40 mg PO HS 28 Days #28 tablet 02/20/21 03/14/21 Rx sucralfate 1 gram tablet 1 g PO QID #120 tablet 02/20/21 03/14/21 Rx famotidine [Pepcid] 20 mg PO BID #14 tablet 02/21/21 03/14/21 Rx Patient hx anesthesia problems: none Family hx anesthesia problems: none PMFSH Past Medical History Medical History (Updated 03/14/21 @ 09:27 by Julian Orlando MD) Cardiomegaly Hypertension Obstructive sleep apnea Surgical History Surgical History H/O repair of rotator cuff H/O umbilical hernia repair History of penile implant Family History Family History Mother No problems noted. Father Family history of congestive heart failure Sibling Alcohol abuse Liver transplant recipient Father No problems noted. Mother No problems noted. Sibling No problems noted. Sibling No problems noted. Sibling No problems noted. Social History Social History Smoking status: Never smoker Second hand tobacco smoke exposure: No Alcohol intake: current Alcohol use details: OCCATIONALLY Substance use: never Living arrangements: with family Gender identity (if verbalized by the patient): Male Spiritual care concerns: No Anes - Eval Final PreProcedure Day of Procedure 03/14/21 09:30 Patient weight: obese Heart: regular rate and rhythm Lungs: clear to auscultation Airway: Mallampati scale class III Neurological: alert and oriented Last oral intake: >/= 8 hours ASA classification: III Emergent: no Anesthetic plan: proceed Anesthesia type and monitoring: general GIVS and standard monitoring Informed Consent: The patient's anesthetic plan and its attendant risks and benefits were discussed with the patient/family/POA. Questions were solicited and answers provided to the satisfaction of the patient/family/POA.
--- NOTE | 2021-03-14 09:32 | WPDGICN ---
Assessment and Plan Assessment and plan (1) Atypical chest pain: Code(s): R07.89 - Other chest pain Status: Acute Assessment and Plan: Patient has atypical chest pain for which he has been in the emergency room. He has been tried on pantoprazole with no specific relief of pain for this reason EGD is requested. (2) Abdominal pain: Code(s): R10.9 - Unspecified abdominal pain Status: Acute Assessment and Plan: Patient has vague recurrent lower abdominal discomfort of poor description. Plan is for EGD to assess for atypical chest pain if no specific etiology identified eventual colonoscopy may need to be considered. High-fiber diet is advised in the interim. GI Consult Note Consult date/time: 03/14/21 09:32 HPI: Aj Sosa Jr. is a 70 year old male Seen in evaluation at the request of KELTON Stapleton. Patient has a history over the last 3 months of abdominal pain and atypical chest pain. He has gone to the ER on 3 occasions. Initially with chest pain and more recently with abdominal pain. He states the pain is in the low abdomen it is vague and poorly described. It may come after eating. He has tried Pepcid with no relief of symptoms. He denies any weight loss or bleeding. because of recurrent persistent episodes of pain an EGD is recommended. This will be performed. If no recent colonoscopy has been performed this may need to be considered as well. Patient denies any family history of colon or GI problems. Review of Systems Review of Systems: All systems reviewed & are unremarkable except as noted in HPI and below PMFSH Past Medical History Medical History (Updated 03/14/21 @ 09:27 by Julian Orlando MD) Cardiomegaly Hypertension Obstructive sleep apnea Surgical History Surgical History H/O repair of rotator cuff H/O umbilical hernia repair History of penile implant Family History Family History Mother No problems noted. Father Family history of congestive heart failure Sibling Alcohol abuse Liver transplant recipient Father No problems noted. Mother No problems noted. Sibling No problems noted. Sibling No problems noted. Sibling No problems noted. Social History Social History Smoking status: Never smoker Second hand tobacco smoke exposure: No Alcohol intake: current Alcohol use details: OCCATIONALLY Substance use: never Living arrangements: with family Gender identity (if verbalized by the patient): Male Spiritual care concerns: No Meds Home Medications and Allergies Home Medications Medication Instructions Recorded Confirmed Type metoprolol succinate 25 mg 25 mg PO DAILY 01/11/20 03/14/21 History tablet,extended release 24 hr ltogirkn-wahi-fxxwl acid 400 1 tablet PO DAILY 01/11/20 03/14/21 History mcg-lycopene 300 mcg-ginkgo 120 mg tablet psyllium husk 0.52 gram capsule 0.52 gm PO BID 01/11/20 03/14/21 History glucosamine sulfate [Glucosamine] 500 mg PO BID 02/13/21 03/14/21 History lisinopril 10 mg PO DAILY 02/13/21 03/14/21 History acetaminophen 1,000 mg PO Q6H PRN tablet 02/14/21 03/07/21 Rx docusate sodium 100 mg tablet 200 mg PO QHS #60 tablet 02/17/21 03/14/21 Rx pantoprazole [Protonix] 40 mg PO HS 28 Days #28 tablet 02/20/21 03/14/21 Rx sucralfate 1 gram tablet 1 g PO QID #120 tablet 02/20/21 03/14/21 Rx famotidine [Pepcid] 20 mg PO BID #14 tablet 02/21/21 03/14/21 Rx Allergies Allergy/AdvReac Type Severity Reaction Status Date / Time No Known Allergies Allergy Verified 03/14/21 09:08 Vital Signs Vital Signs - 24 hr 03/14/21 09:09 Temperature 97.0 F L Pulse Rate 72 Respiratory Rate 20 Blood Pressure 134/82 Pulse Oximetry 98 Exam Narrative: Exam Narrative:
[2021-03-14 10:16] VITALS: BP 129/76; PULSE 67; RESP 22; O2SAT 98
[2021-03-14 10:26] VITALS: BP 126/73; PULSE 66; RESP 22; O2SAT 95
[2021-03-14 10:36] VITALS: BP 126/75; PULSE 67; RESP 23; O2SAT 97
== END 2021-03-14 10:50 | disposition home or self-care (01) ==
PROVIDERS: PCP Physician Assistant; Visit Provider Internal Medicine Gastroenterology
PROC: 0DJ08ZZ Inspection of Upper Intestinal Tract, Via Natural or Artificial Opening Endoscopic (ICD-10-PCS; CPT 43235; principal; 2021-03-14 10:00)
DX: R07.89 Other chest pain (principal); R10.9 Unspecified abdominal pain; I51.7 Cardiomegaly; I10 Essential (primary) hypertension; G47.33 Obstructive sleep apnea (adult) (pediatric); E66.9 Obesity, unspecified; Z68.33 Body mass index [BMI] 33.0-33.9, adult; Z87.19 Personal history of other diseases of the digestive system
CPT/HCPCS: 43239; 87081; J2704; J7120

== ENCOUNTER 2021-03-20 10:56 | Outpatient (CLI) | payer MEDICARE, SELFPAY ==
--- NOTE | ~2021-03-20 | XR_ITS ---
[id number] DATE: 03/20/2021 11:18 INDICATION: Fall yesterday. Left lateral rib pain. TECHNIQUE: PA chest. 3 views of the left ribs. COMPARISON: None FINDINGS: No left rib fracture or bone destruction is evident. The lungs are clear of infiltrate or consolidation. No pleural effusion or pulmonary vascular congest ion. Heart size appears within normal limits. Diffuse idiopathic skeletal hyperostosis and mild dextroscoliosis of the thoracic spine. IMPRESSION: No evidence of displaced left rib fracture Reviewed, dictated and finalized at Location [facility]. Reviewed, dictated and finalized at location A.
== END 2021-03-20 10:57 | disposition home or self-care (01) ==
PROVIDERS: PCP Physician Assistant; Visit Provider Internal Medicine
DX: R07.81 Pleurodynia (principal); W19.XXXA Unspecified fall, initial encounter
CPT/HCPCS: 71101

== ENCOUNTER → 2021-03-25 00:18 | Outpatient (CLI) | payer MEDICARE, SELFPAY ==
[2021-03-25 19:26] LABS: SARS-CoV-2 RNA PCR Negative
== END ==
PROVIDERS: PCP Physician Assistant; Visit Provider Internal Medicine Gastroenterology
DX: Z01.812 Encounter for preprocedural laboratory examination (principal); Z20.822 Contact with and (suspected) exposure to COVID-19
CPT/HCPCS: C9803; U0003; U0005

== ENCOUNTER 2021-03-26 09:43 | Emergency (ER) | payer MEDICARE, SELFPAY ==
[2021-03-26] VITALS (11 sets, daily range): BP systolic 121–138; BP diastolic 73–79; PULSE 64–71; RESP 18; TEMP 36.1; O2SAT 93–100
--- NOTE | ~2021-03-26 | US_ITS ---
EXAMINATION: US venous doppler [facility] DATE: 03/26/2021 12:34 INDICATION: Chest pain and shortness of breath TECHNIQUE: Sanford scale images without and with compression and Doppler images of the bilateral lower e xtremity veins were obtained. COMPARISON: None FINDINGS: The right common femoral vein, profunda femoral vein, femoral vein, popliteal vein, peroneal trunk, p osterior tibial veins, and greater saphenous vein are patent. The left common femoral vein, profunda femoral vein, femoral vein, popliteal vein, peroneal trunk, po sterior tibial veins, and greater saphenous vein are patent. IMPRESSION: 1. Patent bilateral lower extremity veins. No evidence of deep venous thrombosis. Reviewed, dictated and finalized at location A. IMPRESSION: 1. Patent bilateral lower extremity veins. No evidence of deep venous thrombosi s.
--- NOTE | ~2021-03-26 | XR_ITS ---
EXAMINATION: XR knee RT min 4V DATE: 03/26/2021 10:38 INDICATION: Right knee pain TECHNIQUE: Four views of the right knee were obtained. COMPARISON: None. FINDINGS: Alignment is normal. No fracture or osteochondral lesion. There is mild tricompartmental os teoarthritis characterized by tiny marginal osteophytes. There is a moderate to large joint effusion. Soft tissues are unremarkable. IMPRESSION: 1. Moderate to large joint effusion without acute osseous abnormality. Reviewed, dictated and finalized at location A.
--- NOTE | ~2021-03-26 | XR_ITS ---
EXAMINATION: XR knee LT min 4V DATE: 03/26/2021 10:38 INDICATION: Left knee pain TECHNIQUE: Four views of the left knee were obtained. COMPARISON: None. FINDINGS: Alignment is normal. No fracture or osteochondral lesion. There is mild tricompartmental os teoarthritis characterized by tiny marginal osteophytes. There is a large joint effusion. Soft tissue s are unremarkable. IMPRESSION: 1. Large joint effusion without acute osseous abnormality. Reviewed, dictated and finalized at location A.
--- NOTE | ~2021-03-26 | XR_ITS ---
EXAMINATION: XR chest 2V DATE: 03/26/2021 11:07 INDICATION: Right-sided neck and chest pain TECHNIQUE: PA and lateral views of the chest are obtained. COMPARISON: 02/21/2021 FINDINGS: The lungs are free of acute opacities. There is no pleural effusion or pneumothorax. The ca rdiomediastinal silhouette is normal. There are bridging osteophytes at multiple levels in the spine, consistent with diffuse idiopathic skeletal hyperostosis (DISH). IMPRESSION: 1. No acute cardiopulmonary abnormality. Reviewed, dictated and finalized at location A.
--- NOTE | ~2021-03-26 | CT_ITS ---
EXAMINATION: CTA chest PE protocol DATE: 03/26/2021 12:23 INDICATION: Shortness of breath and chest pain TECHNIQUE: Computed tomography angiography (CTA) of the chest was performed with 100 mL Omnipaque-350 intravenous contrast timed to evaluate the pulmonary arteries. Coronal maximum intensity projection 3D-reconstructions were created by the technologist. The dose-length product (DLP) was 590.82 mGy-cm. Automated exposure control and iterative reconstruction technique were employed. COMPARISON: 02/13/2021 FINDINGS: The pulmonary arteries are well-opacified. No pulmonary embolism is identified. There is mi ld emphysema. Small pleural effusions are present. There is mild dependent atelectasis. No pneumothor ax is identified. Cardiomegaly is noted. There are no pathologically enlarged thoracic lymph nodes. T here are bridging osteophytes at multiple levels in the spine, consistent with diffuse idiopathic ske letal hyperostosis (DISH). IMPRESSION: 1. No pulmonary embolism. 2. Small pleural effusions with mild dependent atelectasis. 3. Cardiomegaly. Reviewed, dictated and finalized at location A.
--- NOTE | 2021-03-26 10:59 | ECG_ITS ---
Measurements Intervals [place] Rate: 69 P: 19 GA: 174 QRS: -8 QRSD: 93 T: 9 QT: 417 QTc: 447 Interpretive Statements SINUS RHYTHM VENTRICULAR PREMATURE COMPLEX EARLY PRECORDIAL R/S TRANSITION VOLTAGE CRITERIA FOR LVH MINIMAL Q WAVES- HIGH LATERAL LEADS ABNORMAL ECG Electronically Signed On 03-26-2021 12:26:20 CDT by Bryant Hernandez D.O.
--- NOTE | 2021-03-26 11:03 | ED.LOWEXIN ---
HPI - Extremity Injury (Lower) General Chief Complaint: Extremity Injury, Lower Stated Complaint: knee pain Time Seen by Provider: 03/26/21 10:25 Source: patient Mode of arrival: ambulatory Limitations: no limitations History of Present Illness HPI Narrative: This is a 70-year-old male that presents to the emergency department for bilateral knee pain ongoing over the last couple of weeks. Reports the pain is when he bends the knee. No recent injury or trauma. Reports swelling in the knees. Does report history of problems with his knees for which she has seen Dr. Dumont in the past. He has an appointment to see him next month. Also reports he has been feeling short of breath over the last couple of months. Reports a couple of days ago he had a sharp pain in his right upper chest with deep breathing. Denies any current chest pain. Denies fever, cough, or lower extremity edema. Related Data Home Medications Medication Instructions Recorded Confirmed metoprolol succinate 25 mg 25 mg PO DAILY 01/11/20 03/23/21 tablet,extended release 24 hr igxhsjsn-porq-yqbpk acid 400 1 tablet PO DAILY 01/11/20 03/23/21 mcg-lycopene 300 mcg-ginkgo 120 mg tablet psyllium husk 0.52 gram capsule 0.52 gm PO BID 01/11/20 03/23/21 glucosamine sulfate [Glucosamine] 500 mg PO BID 02/13/21 03/23/21 lisinopril 10 mg PO DAILY 02/13/21 03/23/21 Allergies Allergy/AdvReac Type Severity Reaction Status Date / Time No Known Allergies Allergy Verified 03/26/21 09:55 Review of Systems Review of Systems: Narrative: CONSTITUTIONAL: Denies fever CARDIOVASCULAR: Denies current chest pain, or edema. RESPIRATORY: Reports dyspnea. Denies cough SKIN: Denies rash MUSCULOSKELETAL: Reports joint pain, and myalgia. NEUROLOGIC: Denies numbness All systems reviewed & are unremarkable except as noted in HPI and below PMFSH Past Medical History Medical History (Updated 03/26/21 @ 13:50 by Joyce Webb PA-C) Cardiomegaly Hypertension Obstructive sleep apnea Surgical History Surgical History H/O repair of rotator cuff H/O umbilical hernia repair History of penile implant Family History Family History Mother No problems noted. Father Family history of congestive heart failure Sibling Alcohol abuse Liver transplant recipient Father No problems noted. Mother No problems noted. Sibling No problems noted. Sibling No problems noted. Sibling No problems noted. Social History Social History Smoking status: Never smoker Second hand tobacco smoke exposure: No Alcohol intake: current Substance use: never Substance use type: does not use Gender identity (if verbalized by the patient): Male Spiritual care concerns: No Exam Narrative: Exam Narrative: GENERAL: Well-appearing, well-nourished, and in no acute distress. HEAD: Normocephalic, atraumatic. EYES: EOMI. CHEST: Clear to auscultation. No respiratory distress. No wheezes rales or rhonchi HEART: Regular rate and rhythm. No murmur heard. Normal peripheral pulses. EXTREMITIES: Normal range of motion. Mild edema about the knees without erythema or warmth. Normal DP pulses SKIN: Warm, dry, no rash. NEURO: No focal deficits. Alert and oriented x3. PSYCH: Normal mood and affect Course Vital Signs Vital signs: Vital Signs Temperature 97 F L 03/26/21 09:51 Pulse Rate 67 03/26/21 09:51 Respiratory Rate 18 03/26/21 09:51 Blood Pressure 138/77 03/26/21 09:51 Pulse Oximetry 97 03/26/21 09:51 Temperature 97 F L 03/26/21 09:51 Pulse Rate 67 03/26/21 09:51 Respiratory Rate 18 03/26/21 09:51 Blood Pressure 138/77 03/26/21 09:51 Pulse Oximetry 97 03/26/21 09:51 MDM - Extremity Injury (Lower) MDM Narrative Medical
[2021-03-26 11:24] LABS: Basophils Percent Auto 0.1 % (0.2-1.2); Eosinophils Absolute Auto 0.1 K/mm3 (0-0.3); Eosinophils Percent Auto 1.8 % (0-4.4); Hematocrit 39.1 % (42.0-52.0); Hemoglobin 12.3 g/dL (14.0-18.0); Immature Granulocyte Absolute 0.03 K/mm3 (0.00-0.031); Immature Granulocyte Percent A 0.4 % (0-0.5); Lymphocytes Absolute Auto 0.76 K/mm3 (0.9-3.2); Lymphocytes Percent Auto 9.8 % (18.3-44.2); Mean Corpuscular HGB Conc 31.5 g/dl (32-36); Mean Corpuscular Hemoglobin 28.7 pg (26-34); Mean Corpuscular Volume 91.4 fl (80-100); Mean Platelet Volume 10.7 fl (7.4-10.4); Monocytes Absolute Auto 0.7 K/mm3 (0.1-0.6); Monocytes Percent Auto 9.4 % (2.6-8.5); Neutrophils Absolute Auto 6.1 K/mm3 (1.3-6.7); Neutrophils Percent Auto 78.5 % (45.5-73.1); Platelet Count Result 175 k/mm3 (150-375); Red Blood Count 4.28 M/mm3 (4.6-6.20); Red Cell Distribution Width 13.3 % (11.5-14.5); White Blood Count 7.7 K/mm3 (4.5-10.0)
[2021-03-26 11:33] LABS: Prothrombin Time 13.7 Seconds (11.1-14.7)
[2021-03-26 11:34] LABS: Anion Gap 6 mmol/L (8-16); Blood Urea Nitrogen 21 mg/dL (9-20); Calcium 9.1 mg/dL (8.4-10.2); Carbon Dioxide 28 mmol/L (22-30); Chloride 105 mmol/L (98-107); Estimated CRCL calculation 61 ml/min; Estimated Glomerular Filt Rate 60; Glucose 100 mg/dL (75-110); Partial Thromboplastin Time 31.4 SECONDS (22.3-36.8); Potassium 4.3 mmol/L (3.4-5.0); Sodium 139 mmol/L (137-145)
[2021-03-26 11:36] LABS: D Dimer 2.12 ug/mL (<0.48)
[2021-03-26 11:44] LABS: NT Pro B Type Natriuretic Pept 205 pg/mL (5-100)
[2021-03-26 11:46] LABS: Troponin I < 0.012 ng/mL (0.000-0.034)
== END 2021-03-26 14:01 | disposition home or self-care (01) ==
PROVIDERS: Physician Assistant; Emergency Provider Emergency Medicine; PCP Physician Assistant
DX: M17.0 Bilateral primary osteoarthritis of knee (principal); J90 Pleural effusion, not elsewhere classified; I10 Essential (primary) hypertension; I51.7 Cardiomegaly; G47.33 Obstructive sleep apnea (adult) (pediatric); I49.3 Ventricular premature depolarization; R94.31 Abnormal electrocardiogram [ECG] [EKG]; R06.02 Shortness of breath
CPT/HCPCS: 36415; 71046; 71275; 73564; 80048; 83880; 84484; 85025; 85380; 85610; 85730; 93005; 93970; 99284; Q9967

== ENCOUNTER 2021-03-28 00:27 | Day surgery (SDC) | payer MEDICARE, SELFPAY ==
[2021-03-23 15:16] VITALS: BMI 34.0
[2021-03-28 10:00] VITALS: BP 116/70; PULSE 88; RESP 16; TEMP 36.1; O2SAT 97; BMI 32.1
[2021-03-28] MEDS: LACTATED RINGERS 1,000 ML 150 ML IV CONT (10:07)
--- NOTE | 2021-03-28 10:27 | WPDGICN ---
Assessment and Plan Assessment and plan (1) Abdominal pain: Code(s): R10.9 - Unspecified abdominal pain Status: Acute Assessment and Plan: Patient complains of a very vague abdominal pain currently complains of it in the suprapubic area of the abdomen. Plan is to assess with colonoscopy. Fiber supplementation to help regulate bowels may also be of benefit. (2) Rectal bleeding: Code(s): K62.5 - Hemorrhage of anus and rectum Status: Acute Assessment and Plan: Patient complains of rectal bleeding with wiping. Previously noted to have internal hemorrhoids. A colonoscopy will be performed to assess for any additional etiologies. High fiber supplement should help. (3) Forgetfulness: Code(s): R68.89 - Other general symptoms and signs Status: Acute Assessment and Plan: Patient noted to have significant forgetfulness. Is this impacts his history which is difficult to obtain. (4) Obesity (BMI 30.0-34.9): Code(s): E66.9 - Obesity, unspecified Status: Acute Assessment and Plan: Patient with obesity. He reports perhaps a 10 lb weight loss over recent months. Continuing to monitor weight with the associated encouragement for weight loss is encouraged. (5) History of colon polyps: Code(s): Z86.010 - Personal history of colonic polyps Status: Acute Assessment and Plan: Patient found to have colon polyps by previous colonoscopy 2018. Because of recent rectal bleeding surveillance exam will be performed at this time. GI Consult Note Consult date/time: 03/28/21 10:27 HPI: Aj Sosa Jr. is a 70 year old male Presents for colonoscopy. Patient complains of rather vague lower abdominal discomfort. He states he is somewhat tender in the suprapubic area of the abdomen. Not related to diet or activity. Not related to bowel movements. He notes occasional bright red blood per rectum on wiping. In 2018 he had a colon polyp by colonoscopy. Patient reports he may have lost 10 lb over recent months. His family history is noncontributory. He underwent recent EGD on 03/14/2021 that was unremarkable. Because of ongoing discomfort a colonoscopy has been recommended Review of Systems Review of Systems: All systems reviewed & are unremarkable except as noted in HPI and below PMFSH Past Medical History Medical History (Updated 03/28/21 @ 10:31 by Mejia Adames MD) Cardiomegaly Hypertension Obstructive sleep apnea Surgical History Surgical History H/O repair of rotator cuff H/O umbilical hernia repair History of penile implant Family History Family History Mother No problems noted. Father Family history of congestive heart failure Sibling Alcohol abuse Liver transplant recipient Father No problems noted. Mother No problems noted. Sibling No problems noted. Sibling No problems noted. Sibling No problems noted. Social History Social History Smoking status: Never smoker Second hand tobacco smoke exposure: No Alcohol intake: current Substance use: never Substance use type: does not use Living arrangements: with family Gender identity (if verbalized by the patient): Male Spiritual care concerns: No Meds Home Medications and Allergies Home Medications Medication Instructions Recorded Confirmed Type metoprolol succinate 25 mg 25 mg PO DAILY 01/11/20 03/28/21 History tablet,extended release 24 hr tnwtijvf-lqiz-zsojo acid 400 1 tablet PO DAILY 01/11/20 03/28/21 History mcg-lycopene 300 mcg-ginkgo 120 mg tablet psyllium husk 0.52 gram capsule 0.52 gm PO BID 01/11/20 03/28/21 History glucosamine sulfate [Glucosamine] 500 mg PO BID 02/13/21 03/28/21 History nahid
--- NOTE | 2021-03-28 10:40 | WPDANESEPPF ---
Anes - Initial Pre Proc Eval Procedure: Operation Date: 03/28/21 11:00 Proposed Procedures p Colonoscopy - Mejia Adames MD Date/Time: 03/28/21 10:40 Surgeon: Mejia Adames MD Pre Op Diagnosis: weight loss, abd pain, hx of colon polyps Patient Data Age: 70 Gender: M Height: 1.75 m Weight: 98.6 kg Last Vital Signs Temp 97.0 F L 03/28/21 10:00 Pulse 88 03/28/21 10:00 Resp 16 03/28/21 10:00 BP 116/70 03/28/21 10:00 Pulse Ox 97 03/28/21 10:00 Allergies Allergy/AdvReac Type Severity Reaction Status Date / Time No Known Allergies Allergy Verified 03/28/21 09:57 Home Medications Medication Instructions Recorded Confirmed Type metoprolol succinate 25 mg 25 mg PO DAILY 01/11/20 03/28/21 History tablet,extended release 24 hr ucbpgeeq-luha-jgzvh acid 400 1 tablet PO DAILY 01/11/20 03/28/21 History mcg-lycopene 300 mcg-ginkgo 120 mg tablet psyllium husk 0.52 gram capsule 0.52 gm PO BID 01/11/20 03/28/21 History glucosamine sulfate [Glucosamine] 500 mg PO BID 02/13/21 03/28/21 History lisinopril 10 mg PO DAILY 02/13/21 03/28/21 History Patient hx anesthesia problems: none Family hx anesthesia problems: none PMFSH Past Medical History Medical History (Updated 03/28/21 @ 10:40 by Julian Orlando MD) Aneurysm of abdominal aorta stable and being watched Cardiomegaly Hypertension Obstructive sleep apnea Surgical History Surgical History H/O repair of rotator cuff H/O umbilical hernia repair History of penile implant Family History Family History Mother No problems noted. Father Family history of congestive heart failure Sibling Alcohol abuse Liver transplant recipient Father No problems noted. Mother No problems noted. Sibling No problems noted. Sibling No problems noted. Sibling No problems noted. Social History Social History Smoking status: Never smoker Second hand tobacco smoke exposure: No Alcohol intake: current Substance use: never Substance use type: does not use Living arrangements: with family Gender identity (if verbalized by the patient): Male Spiritual care concerns: No Anes - Eval Final PreProcedure Day of Procedure 03/28/21 10:40 Patient weight: obese Heart: regular rate and rhythm Airway: Mallampati scale class II Neurological: alert and oriented Last oral intake: >/= 8 hours ASA classification: III Emergent: no Anesthetic plan: proceed Anesthesia type and monitoring: general GIVS and standard monitoring Informed Consent: The patient's anesthetic plan and its attendant risks and benefits were discussed with the patient/family/POA. Questions were solicited and answers provided to the satisfaction of the patient/family/POA.
[2021-03-28 11:25] VITALS: BP 109/69; PULSE 72; RESP 16; O2SAT 97
[2021-03-28 11:35] VITALS: BP 111/72; PULSE 74; RESP 18; O2SAT 97
[2021-03-28 11:45] VITALS: BP 118/64; PULSE 72; RESP 20; O2SAT 97
== END 2021-03-28 11:55 | disposition home or self-care (01) ==
PROVIDERS: PCP Physician Assistant; Visit Provider Internal Medicine Gastroenterology
PROC: 0DJD8ZZ Inspection of Lower Intestinal Tract, Via Natural or Artificial Opening Endoscopic (ICD-10-PCS; CPT 45378; principal; 2021-03-28 11:00)
DX: R10.9 Unspecified abdominal pain (principal); K64.8 Other hemorrhoids; K57.30 Diverticulosis of large intestine without perforation or abscess without bleeding; K62.5 Hemorrhage of anus and rectum; R68.89 Other general symptoms and signs; Z86.010 Personal history of colon polyps; I11.9 Hypertensive heart disease without heart failure; G47.33 Obstructive sleep apnea (adult) (pediatric); I71.4 Abdominal aortic aneurysm, without rupture; E66.9 Obesity, unspecified; Z68.32 Body mass index [BMI] 32.0-32.9, adult
CPT/HCPCS: 45378; J2704; J7120

== ENCOUNTER 2021-04-07 10:57 | Outpatient (CLI) | payer MEDICARE, SELFPAY ==
[2021-04-07 12:07] LABS: Rheumatoid Factor < 8.6 IU/ML (<12)
[2021-04-07 12:08] LABS: CRP 1.7 mg/dL (<1.0); Creatine Kinase 90 U/L (55-170)
[2021-04-07 12:47] LABS: Erythrocyte Sedimentation Rate 36 mm/hr (0-20)
[2021-04-07 13:17] LABS: Vitamin D 25 Hydroxy 52.6 ng/mL
== END 2021-04-07 10:58 | disposition home or self-care (01) ==
PROVIDERS: PCP Physician Assistant; Referring Provider Internal Medicine; Visit Provider Physician Assistant
DX: M79.10 Myalgia, unspecified site (principal); M85.89 Other specified disorders of bone density and structure, multiple sites
CPT/HCPCS: 36415; 82306; 82550; 84443; 85652; 86038; 86140; 86430

== ENCOUNTER 2021-04-13 08:06 | Outpatient (CLI) | payer MEDICARE, SELFPAY ==
[2021-04-13 08:25] LABS: Alveolar/Arterial O2 Gradient 21.6 mmHg; Base Excess ABG 1.3 mEq/l (+/-2.0); Carboxyhemoglobin 0.3 % THb (0-2.0); Fractional Inspired Oxygen 21 %; HCO3 ABG 25.1 mEq/l (22.0-26.0); Methemoglobin ABG 0.6 %THb (0-1.5); Oxygen Content ABG 17.8 %vol (16.0-22.0); Oxygen Saturation ABG 96.7 % (95.0-100.0); Oxyhemoglobin 95.1 % THb (90.0-100.0); PCO2 ABG 37.3 mmHg (35.0-45.0); PO2 ABG 83.5 mmHg (80.0-100.0); PO2 FiO2 Ratio Arterial Blood 3.98 %; Total Hemoglobin 13.3 g/dL (12.0-18.0); pH ABG 7.446 (7.350-7.450)
[2021-04-13 08:26] LABS: Device ROOM AIR; Modified Allen's Test Pass; Site Drawn RIGHT RADIAL
== END 2021-04-13 08:07 | disposition home or self-care (01) ==
LOC: ANHPFT 08:07
PROVIDERS: PCP Physician Assistant; Visit Provider Internal Medicine Cardiovascular Disease
DX: R06.02 Shortness of breath (principal)
CPT/HCPCS: 36600; 82375; 82805; 83050

== ENCOUNTER 2021-05-22 12:30 | Outpatient (CLI) | payer MEDICARE, SELFPAY ==
[2021-05-22 14:10] LABS: Hematocrit 39.2 % (42.0-52.0); Hemoglobin 12.2 g/dL (14.0-18.0); Mean Corpuscular HGB Conc 31.1 g/dl (32-36); Mean Corpuscular Hemoglobin 27.7 pg (26-34); Mean Corpuscular Volume 89.1 fl (80-100); Mean Platelet Volume 11.3 fl (7.4-10.4); Platelet Count Result 170 k/mm3 (150-375); Red Cell Distribution Width 14.2 % (11.5-14.5); White Blood Count 6.9 K/mm3 (4.5-10.0)
[2021-05-22 14:17] LABS: Alanine Aminotransferase 14 U/L (4-50); Albumin Level 4.2 g/dL (3.5-5.1); Alkaline Phosphatase 82 U/L (38-126); Anion Gap 4 mmol/L (8-16); Aspartate Amino Transferase 22 U/L (17-59); Bilirubin,Total 0.4 mg/dL (0.2-1.3); Blood Urea Nitrogen 23 mg/dL (9-20); Carbon Dioxide 28 mmol/L (22-30); Chloride 106 mmol/L (98-107); Estimated Glomerular Filt Rate 60; Glucose 91 mg/dL (65-110); Potassium 4.1 mmol/L (3.4-5.0); Sodium 138 mmol/L (137-145)
[2021-05-26 21:53] LABS: Tissue Transglutaminase IgG Ab 3 U/mL (<6)
[2021-05-28 20:14] LABS: Tissue Transglutaminase IgA Ab 1 U/mL (<4)
== END 2021-05-22 12:31 | disposition home or self-care (01) ==
PROVIDERS: PCP Physician Assistant; Visit Provider Nurse Practitioner Family
DX: R10.84 Generalized abdominal pain (principal)
CPT/HCPCS: 36415; 80053; 83516; 85027

== ENCOUNTER 2021-06-16 09:16 | Outpatient (CLI) | payer MEDICARE, SELFPAY ==
--- NOTE | ~2021-06-16 | US_ITS ---
EXAMINATION: US abdomen complete DATE: 06/16/2021 09:52 INDICATION: Generalized abdominal pain TECHNIQUE: Multiple grayscale and Doppler ultrasound images of the abdomen were obtained. COMPARISON: CT, 02/20/2021 FINDINGS: Bowel gas obscures visualization of the pancreas. The visualized portions of the pancreas a re unremarkable. The liver is normal with normal echogenicity and echotexture. No surface nodularity. Normal hepatopetal flow in the main portal vein. The gallbladder is normal with no abnormal wall thi ckening, pericholecystic fluid or stones. The normal common bile duct measures 3 mm. There was no son ographic Briceño sign. The visualized portions of the aorta and inferior vena cava are normal. The right kidney measures 10.7 x 6.0 x 5.5 cm. The left kidney measures 10.5 x 5.5 x 5.0 cm. The kidn eys demonstrate normal parenchymal echogenicity. There is no hydronephrosis. The spleen is normal in appearance and measures 12.3 cm. IMPRESSION: 1. No sonographic correlate for the patient's symptoms. Reviewed, dictated and finalized at location B.
== END 2021-06-16 09:17 | disposition home or self-care (01) ==
PROVIDERS: PCP Physician Assistant; Visit Provider Nurse Practitioner Family
DX: R10.84 Generalized abdominal pain (principal)
CPT/HCPCS: 76700

== ENCOUNTER 2021-07-11 17:01 | Outpatient (CLI) | payer MEDICARE, SELFPAY ==
[2021-07-11 17:28] LABS: Uric Acid 5.8 mg/dL (3.5-8.5)
[2021-07-11 17:51] LABS: Erythrocyte Sedimentation Rate 18 mm/hr (0-20)
[2021-07-11 18:14] LABS: Rheumatoid Factor < 8.6 IU/ML (<12)
== END 2021-07-11 17:02 | disposition home or self-care (01) ==
LOC: ANHLAB 17:04
PROVIDERS: PCP Physician Assistant; Visit Provider Physician Assistant
DX: M25.50 Pain in unspecified joint (principal)
CPT/HCPCS: 36415; 84550; 85652; 86430

== ENCOUNTER 2021-09-27 09:09 | Outpatient (CLI) | payer MEDICARE, SELFPAY ==
--- NOTE | 2021-09-27 11:00 | NEURO_ITS ---
Impression: # Complains of numbness of left hand. # Left Carpal Tunnel Syndrome. # No ulnar neuropathy. # Mildly abnormal needle/EMG exam in left APB. Nerve Conduction Studies Anti Sensory Summary Table Stim Site NR Peak (ms) P-T Amp (?V) Site1 Site2 Delta-P (ms) Dist (cm) Alok (m/s) Left Median Anti Sensory (2-3nd Digit) Wrist 3.9 55.0 Wrist 2-3nd Digit 3.9 14.0 36 Wrist 4.1 51.5 Wrist 2-3nd Digit 3.9 14.0 36 Left Radial Anti Sensory (Base 1st Digit) Wrist 2.2 23.4 Wrist Base 1st Digit 2.2 0.0 Left Ulnar Anti Sensory (5th Digit) Wrist 2.4 46.0 Wrist 5th Digit 2.4 14.0 58 Motor Summary Table Stim Site NR Onset (ms) O-P Amp (mV) Site1 Site2 Delta-0 (ms) Dist (cm) Alok (m/s) Left Median Motor (Abd Poll Brev) Wrist 4.1 1.1 Elbow Wrist 5.5 29.0 53 Elbow 9.6 1.1 Left Ulnar Motor (Abd Dig Minimi) Wrist 2.6 5.9 A Elbow Wrist 5.9 30.0 51 A Elbow 8.5 5.0 F Wave Studies NR F-Lat (ms) L-R F-Lat (ms) Left Median (Mrkrs) (Abd Poll Brev) 31.14 Left Ulnar (Mrkrs) (Abd Dig Min) 30.59 EMG Side Muscle Nerve Root Ins Act Fibs Amp Dur Recrt Comment Left 1stDorInt Ulnar C8-T1 Nml Nml Nml Nml Nml Left Ext Indicis Radial (Post Int) C7-8 Nml Nml Nml Nml Nml Left Ext Digitorum Radial (Post Int) C7-8 Nml Nml Nml Nml Nml Left BrachioRad Radial C5-6 Nml Nml Nml Nml Nml Left PronatorTeres Median C6-7 Nml Nml Nml Nml Nml Left Abd Poll Brev Median C8-T1 Nml Nml Incr >12ms Reduced MTDD
== END 2021-09-27 09:10 | disposition home or self-care (01) ==
PROVIDERS: PCP Physician Assistant; Visit Provider Physician Assistant
DX: R20.0 Anesthesia of skin (principal); G56.02 Carpal tunnel syndrome, left upper limb; R94.131 Abnormal electromyogram [EMG]
CPT/HCPCS: 95886; 95909

== ENCOUNTER → 2021-10-03 01:58 | Outpatient (CLI) | payer MEDICARE, SELFPAY ==
[2021-10-04 13:32] LABS: SARS-CoV-2 RNA PCR Negative
== END ==
PROVIDERS: PCP Physician Assistant; Visit Provider Internal Medicine
DX: J02.9 Acute pharyngitis, unspecified (principal); Z20.822 Contact with and (suspected) exposure to COVID-19
CPT/HCPCS: C9803; U0003; U0005

== ENCOUNTER 2022-06-28 07:39 | Outpatient (CLI) | payer MEDICARE, SELFPAY ==
[2022-06-28 08:32] LABS: Anion Gap 10 mmol/L (8-16); Blood Urea Nitrogen 30 mg/dL (9-20); Calcium 9.2 mg/dL (8.4-10.2); Carbon Dioxide 27 mmol/L (22-30); Chloride 104 mmol/L (98-107); Estimated Glomerular Filt Rate 46; Glucose 121 mg/dL (65-110); Potassium 4.1 mmol/L (3.4-5.0); Sodium 141 mmol/L (137-145)
[2022-06-28 08:39] LABS: Alanine Aminotransferase 29 U/L (6-50); Albumin Level 4.4 g/dL (3.5-5.1); Alkaline Phosphatase 83 U/L (38-126); Anion Gap 11 mmol/L (8-16); Aspartate Amino Transferase 30 U/L (17-59); Bilirubin,Total 0.7 mg/dL (0.2-1.3); Blood Urea Nitrogen 30 mg/dL (9-20); Carbon Dioxide 26 mmol/L (22-30); Chloride 104 mmol/L (98-107); Estimated Glomerular Filt Rate 46; Glucose 122 mg/dL (65-110); Potassium 4.1 mmol/L (3.4-5.0); Sodium 141 mmol/L (137-145)
[2022-06-28 08:50] LABS: Hemoglobin 13.6 g/dL (14.0-18.0); Mean Corpuscular HGB Conc 31.6 g/dl (32-36); Mean Corpuscular Hemoglobin 29.8 pg (26-34); Mean Corpuscular Volume 94.3 fl (80-100); Platelet Count Result 144 k/mm3 (150-375); Red Blood Count 4.56 M/mm3 (4.6-6.20); Red Cell Distribution Width 13.5 % (11.5-14.5); White Blood Count 5.6 K/mm3 (4.5-10.0)
[2022-06-28 09:04] LABS: Prostate Specific Antigen 2.4 ng/mL (< OR = 4.0)
[2022-06-28 20:24] LABS: Vitamin D 25 Hydroxy 46.4 ng/mL
== END 2022-06-28 07:40 | disposition home or self-care (01) ==
PROVIDERS: PCP Physician Assistant; Visit Provider Internal Medicine Cardiovascular Disease
DX: Z12.5 Encounter for screening for malignant neoplasm of prostate (principal); R53.83 Other fatigue; E78.5 Hyperlipidemia, unspecified; E55.9 Vitamin D deficiency, unspecified; I10 Essential (primary) hypertension
CPT/HCPCS: 36415; 80048; 80053; 82306; 82607; 82746; 84153; 84443; 85027; G0103

== ENCOUNTER 2022-08-27 16:42 | Outpatient (CLI) | payer MEDICARE, SELFPAY | END 2022-08-27 16:43 | disposition home or self-care (01) | LOC: ANHLAB 16:44 | PROVIDERS: PCP Physician Assistant; Visit Provider Nurse Practitioner Family | DX: R19.5 Other fecal abnormalities (principal); R10.84 Generalized abdominal pain | CPT/HCPCS: 87045; 87177; 87209; 87427 ==

== ENCOUNTER 2022-10-29 09:12 | Outpatient (CLI) | payer MEDICARE, SELFPAY ==
--- NOTE | ~2022-10-29 | XR_ITS ---
EXAMINATION: XR small bowel follow through DATE: 10/29/2022 11:58 INDICATION: Umbilical pain. Diarrhea. TECHNIQUE: Oral contrast was administered, and a time course of radiographs of the abdomen was obtain ed. Fluoroscopy of the small bowel was performed. Fluoroscopy exposure time was 0.2 minutes. The tota l number of images was 135. COMPARISON: CT abdomen and pelvis 02/20/2021 FINDINGS: There is no abnormal mass or stricture. The terminal ileum is normal. Transit time from the stomach t o proximal colon was approximately 1 hour. IMPRESSION: 1. Normal small bowel series. Reviewed, dictated and finalized at location A. IESEL PROCESS CONTROL TECHNICIAN
== END 2022-10-29 09:13 | disposition home or self-care (01) ==
PROVIDERS: PCP Physician Assistant; Visit Provider Nurse Practitioner Family
DX: R10.9 Unspecified abdominal pain (principal)
CPT/HCPCS: 74250

== ENCOUNTER 2023-11-07 09:56 | Outpatient (CLI) | payer MEDICARE, SELFPAY ==
[2023-11-07 11:17] LABS: Anion Gap 9 mmol/L (8-16); Blood Urea Nitrogen 18 mg/dL (9-20); Calcium 9.2 mg/dL (8.4-10.2); Carbon Dioxide 26 mmol/L (22-30); Chloride 107 mmol/L (98-107); Estimated Glomerular Filt Rate 54; Glucose 109 mg/dL (65-110); Potassium 3.8 mmol/L (3.4-5.0); Sodium 142 mmol/L (137-145)
== END 2023-11-07 09:57 | disposition home or self-care (01) ==
PROVIDERS: PCP Physician Assistant; Visit Provider Physician Assistant
DX: I10 Essential (primary) hypertension (principal)
CPT/HCPCS: 36415; 80048; J2704

== ENCOUNTER 2024-02-24 09:07 | Outpatient (CLI) | payer MEDICARE, SELFPAY ==
--- NOTE | ~2024-02-24 | XR_ITS ---
EXAMINATION: XR hand LT min 3V DATE: 02/24/2024 09:28 INDICATION: Unspecified osteoarthritis, unspecified site. TECHNIQUE: 3 views of left hand were obtained. COMPARISON: None. FINDINGS: Bone alignment is normal. No fracture. There is mild osteoarthritis of first carpometacarpa l joint and second and fifth distal interphalangeal joints. IMPRESSION: 1. Mild polyarticular osteoarthritis. Reviewed, dictated and finalized at location A.
--- NOTE | ~2024-02-24 | XR_ITS ---
EXAMINATION: XR hand RT min 3V DATE: 02/24/2024 09:27 INDICATION: Unspecified osteoarthritis, unspecified site. Right hand pain. TECHNIQUE: 3 views of right hand were obtained. COMPARISON: None. FINDINGS: Bone alignment is normal. No fracture. There is mild osteoarthritis of first carpometacarpa l joint and some of the metacarpophalangeal joints and interphalangeal joints. There is moderate oste oarthritis of second metacarpophalangeal joint and second distal interphalangeal joint. IMPRESSION: 1. Polyarticular osteoarthritis. Reviewed, dictated and finalized at location A.
[2024-02-24 10:07] LABS: CRP < 0.5 mg/dL (<1.0); Rheumatoid Factor < 12.0 IU/ML (<12)
== END 2024-02-24 09:08 | disposition home or self-care (01) ==
LOC: ANHIMG 09:12
PROVIDERS: PCP Physician Assistant; Visit Provider Internal Medicine
DX: M19.041 Primary osteoarthritis, right hand (principal); M19.042 Primary osteoarthritis, left hand; R53.83 Other fatigue
CPT/HCPCS: 36415; 73130; 84443; 86140; 86430

== ENCOUNTER 2024-03-13 09:37 | Outpatient (CLI) | payer MEDICARE, SELFPAY ==
[2024-03-13 14:36] LABS: Cholesterol 96 mg/dL (0-200); HDL Direct 35 mg/dL; Triglycerides 186 mg/dL (<150)
[2024-03-13 14:47] LABS: LDL Cholesterol Direct 41 mg/dL
== END 2024-03-13 09:38 | disposition home or self-care (01) ==
PROVIDERS: PCP Physician Assistant
DX: E78.5 Hyperlipidemia, unspecified (principal)
CPT/HCPCS: 36415; 80061

== ENCOUNTER 2024-05-07 08:04 | Outpatient (CLI) | payer MEDICARE, SELFPAY ==
--- NOTE | ~2024-05-07 | CT_ITS ---
CT abdomen pelvis wo/w con Ordering provider: Lakeisha Medina MD History: 73 years Male with . GROSS HEMATURIA . Comparison: None. Technique: CT abdomen and pelvis with IV and without oral contrast. Automated exposure control and it erative reconstruction technique were employed. The dose-length product was 2991.98 mGy-cm. 130 mL Om nipaque 350 was given IV. Findings: VISUALIZED LOWER CHEST: Subsegmental atelectatic changes seen posteriorly with Bilateral dependent at electatic changes. Slight cardiomegaly. UPPER ABDOMINAL ORGANS: Liver: Hepatomegaly. Tiny cyst in segment #8. Gallbladder: Normal. Spleen: Normal. Stomach/duodenum: Normal. Pancreas: Normal. Adrenals: Normal. Kidneys: Bilateral tiny cysts. PELVIC ORGANS: The bladder is normal. Prostate enlargement.. Penile prosthesis is noted. BOWEL AND MESENTERY: Colon: No evidence of diverticulitis. Fecal material is seen in the colon suggestive of constipation. Normal appendix. Small Bowel: Normal. No obstruction. Peritoneum/mesentery: No free air or free fluid. No mesenteric lymphadenopathy. RETROPERITONEUM: Mild atheromatous disease of the abdominal aorta. Calcification is seen in the sple geeta artery area. No retroperitoneal lymphadenopathy. MUSCULOSKELETAL: Superficial soft tissues: The superficial soft tissues are normal. Bones: Age appropriate degenerative changes of the spine. Bilateral sacroiliitis with fusion. Minimal retrolisthesis at the level of L2-L3.1 IMPRESSION: 1. No evidence of stones seen in the kidneys or bladder. No hydronephrotic changes. 2. No evidence of appendicitis, diverticulitis or intestinal obstruction. 3. Constipation. 4. Hepatomegaly. Reviewed, dictated and finalized at location A. IMPRESSION: 1. No evidence of stones seen in the kidneys or bladder. No hydronephrotic kayla nges. 2. No evidence of appendicitis, diverticulitis or intestinal obstruction. 3. Constipation. 4. Hepatomegaly.
[2024-05-07 08:38] LABS: Estimated Glomerular Filt Rate 59
== END 2024-05-07 08:05 | disposition home or self-care (01) ==
LOC: ANHIMG 08:10
PROVIDERS: PCP Internal Medicine; Visit Provider Urology
DX: R31.0 Gross hematuria (principal); K59.00 Constipation, unspecified; R16.0 Hepatomegaly, not elsewhere classified
CPT/HCPCS: 74178; Q9967

== ENCOUNTER 2024-05-15 14:09 | Outpatient (NON) | payer MEDICARE, SELFPAY ==
[2024-05-15 16:07] LABS: Toxigenic C. Diff POSITIVE (NEGATIVE)
== END 2024-05-15 14:10 | disposition home or self-care (01) ==
LOC: ANHLAB 14:10
PROVIDERS: PCP Internal Medicine; Visit Provider Internal Medicine
DX: R19.7 Diarrhea, unspecified (principal)
CPT/HCPCS: 87493

== ENCOUNTER 2024-05-20 07:54 | Outpatient (CLI) | payer MEDICARE, SELFPAY ==
--- NOTE | ~2024-05-20 | XR_ITS ---
XR foot LT min 3V Ordering provider: Kerry Whitmore, MILLER HEAD WET PROCESS History: . MULTIPLE JOINT PAIN . Comparison: None. FINDINGS: BONES: No acute fracture or dislocation. Calcaneal spur. Ossification of the insertion of the tendo Achilles. JOINT SPACES: Slight narrowing of the first metatarsophalangeal joint. Slight narrowing of the proxim al and distal interphalangeal joints. No tarsal coalition. SOFT TISSUES: Normal. IMPRESSION: No acute osseous abnormality left foot. Reviewed, dictated and finalized at location A.
--- NOTE | ~2024-05-20 | XR_ITS ---
XR hand LT 2V Ordering provider: Kerry Whitmore, BLADE BALANCER History: . MULTIPLE JOINT PAIN . Comparison: None. FINDINGS: BONES: No acute fracture or dislocation. JOINT SPACES: Slight narrowing of the proximal and distal interphalangeal joints.. SOFT TISSUES: Unremarkable. IMPRESSION: No acute osseous abnormality left hand. Reviewed, dictated and finalized at location A.
--- NOTE | ~2024-05-20 | XR_ITS ---
XR ankle LT 2V Ordering provider: Kerry Whitmore, GRAIN DRIER OPERATOR History: . MULTIPLE JOINT PAIN . Comparison: None. FINDINGS: BONES: No acute fracture or dislocation. Calcaneal spur. Ossification of the insertion of the tendo A chilles. JOINT SPACES: The ankle mortise is normal. SOFT TISSUES: Normal. IMPRESSION: No acute osseous abnormality left ankle. Reviewed, dictated and finalized at location A.
--- NOTE | ~2024-05-20 | XR_ITS ---
XR wrist RT 2V Ordering provider: Kerry Whitmore, SERVICE CLERK History: . MULTIPLE JOINT PAIN . Comparison: None. FINDINGS: BONES: No acute fracture or dislocation. No definite scaphoid fracture. Small sclerotic lesion seen in the distal metaphysis of the fifth metacarpal bone. JOINT SPACES: Small subarticular cystic area seen in the scaphoid may indicate mild osteoarthritic c hanges. Osteoarthritic changes also seen in the first carpometacarpal joint. SOFT TISSUES: Normal. IMPRESSION: No acute osseous abnormality right wrist. Reviewed, dictated and finalized at location A.
--- NOTE | ~2024-05-20 | XR_ITS ---
XR ankle RT 2V Ordering provider: Kerry Whitmore, BRIDGES AND BUILDINGS SUPERVISOR History: . MULTIPLE JOINT PAIN . Comparison: None. FINDINGS: BONES: No acute fracture or dislocation. Calcaneal spur. JOINT SPACES: Normal. SOFT TISSUES: Normal. IMPRESSION: No acute osseous abnormality of the right ankle. Reviewed, dictated and finalized at location A.
--- NOTE | ~2024-05-20 | XR_ITS ---
XR hip RT min 2V Ordering provider: Kerry Whitmore, YARD COORDINATOR History: . MULTIPLE JOINT PAIN . Comparison: None. FINDINGS: BONES: No acute fracture or dislocation. Possibility of impingement is not excluded. HIP JOINT SPACES: Moderate narrowing of the joint space with marginal osteophyte. PUBIC SYMPHYSIS: Normal. SOFT TISSUES: Normal. IMPRESSION: No acute osseous abnormality pelvis and right hip. Reviewed, dictated and finalized at location A.
--- NOTE | ~2024-05-20 | XR_ITS ---
XR foot RT min 3V Ordering provider: Kerry Whitmore, LICENSED EMBALMER History: . MULTIPLE JOINT PAIN . Comparison: None. FINDINGS: BONES: No acute fracture or dislocation. Small bony fragment seen near to the cuboid bone most likely old fracture or sesamoid bone. Calcaneal spur. JOINT SPACES: Normal. No tarsal coalition. SOFT TISSUES: Normal. IMPRESSION: No acute osseous abnormality of the right foot. Reviewed, dictated and finalized at location A.
--- NOTE | ~2024-05-20 | XR_ITS ---
XR sacroiliac joints min 3V Ordering provider: Kerry Whitmore, STEEL CUTTER History: . MULTIPLE JOINT PAIN . Comparison: None. FINDINGS: BONES: No acute fracture or dislocation. JOINTS: Narrowing of the joint spaces with sacroiliitis and fusion. No bony erosions. Bilateral hip moderate to severe narrowing of the joint spaces. Mild pubic symphysitis. SOFT TISSUES: Unremarkable. IMPRESSION: NO ACUTE OSSEOUS ABNORMALITY. Bilateral sacroiliitis with fusion. Reviewed, dictated and finalized at location A.
--- NOTE | ~2024-05-20 | XR_ITS ---
XR wrist LT 2V Ordering provider: Kerry Whitmore, ASSISTANT OFFSET PRESS OPERATOR History: . MULTIPLE JOINT PAIN . Comparison: None. FINDINGS: BONES: No acute fracture or dislocation. No definite scaphoid fracture. JOINT SPACES: Well maintained. Small subarticular cystic area seen in the scaphoid suggestive of oste oarthritic changes. SOFT TISSUES: Normal. IMPRESSION: No acute osseous abnormality left wrist. Reviewed, dictated and finalized at location A.
--- NOTE | ~2024-05-20 | XR_ITS ---
XR hip LT min 2V Ordering provider: Kerry Whitmore, INDEPENDENT PRODUCER History: . MULTIPLE JOINT PAIN . Comparison: None. FINDINGS: BONES: No acute fracture or dislocation. HIP JOINT SPACES: Moderate osteoarthritis bilaterally. Narrowing of the joint space suggestive of mo derate osteoarthritic changes. PUBIC SYMPHYSIS: Normal. SOFT TISSUES: Normal. IMPRESSION: No acute osseous abnormality pelvis and left hip. Reviewed, dictated and finalized at location A.
--- NOTE | ~2024-05-20 | XR_ITS ---
XR hand RT 2V Ordering provider: Kerry Whitmore, DIVISION SUPERINTENDENT History: . MULTIPLE JOINT PAIN . Comparison: None. FINDINGS: BONES: No acute fracture or dislocation. JOINT SPACES: Tiny cysts are seen in the articular areas of the distal interphalangeal joints small b gifty fragment or soft tissue ossification is seen posteriorly opposite the distal interphalangeal join t SOFT TISSUES: Normal. IMPRESSION: No acute osseous abnormality right hand. Highly suggestive of osteoarthritis. Rheumatoid arthritis is less likely. Clinical correlation advise d. Reviewed, dictated and finalized at location A. IMPRESSION: No acute osseous abnormality right hand. Highly suggestive of osteoarthritis. Rheumatoid arthritis is less likely. Clini ananth correlation advised.
== END 2024-05-20 07:55 | disposition home or self-care (01) ==
PROVIDERS: PCP Internal Medicine; Visit Provider Nurse Practitioner
DX: M46.1 Sacroiliitis, not elsewhere classified (principal)
CPT/HCPCS: 72202; 73100; 73120; 73502; 73600; 73630

== ENCOUNTER 2024-10-01 07:55 | Outpatient (CLI) | payer MEDICARE, SELFPAY ==
[2024-10-01 10:31] LABS: Anion Gap 3 mmol/L (4-12); Blood Urea Nitrogen 37 mg/dL (9-20); Carbon Dioxide 27 mmol/L (22-30); Chloride 111 mmol/L (98-107); Cholesterol 103 mg/dL (0-200); Estimated Glomerular Filt Rate 40; Glucose 106 mg/dL (65-110); HDL Direct 36 mg/dL; Potassium 4.7 mmol/L (3.4-5.0); Sodium 141 mmol/L (137-145); Triglycerides 139 mg/dL (<150)
[2024-10-01 14:02] LABS: LDL Cholesterol Direct < 30 mg/dL
== END 2024-10-01 07:56 | disposition home or self-care (01) ==
PROVIDERS: PCP Internal Medicine; Visit Provider Internal Medicine Cardiovascular Disease
DX: E78.5 Hyperlipidemia, unspecified (principal); I10 Essential (primary) hypertension
CPT/HCPCS: 36415; 80048; 80061

== ENCOUNTER 2024-10-15 08:01 | Outpatient (CLI) | payer MEDICARE, OTHER, SELFPAY ==
[2024-10-15 09:07] LABS: Anion Gap 6 mmol/L (4-12); Blood Urea Nitrogen 31 mg/dL (9-20); Calcium 9.1 mg/dL (8.4-10.2); Carbon Dioxide 29 mmol/L (22-30); Chloride 105 mmol/L (98-107); Estimated Glomerular Filt Rate 42; Glucose 97 mg/dL (65-110); Potassium 4.1 mmol/L (3.4-5.0); Sodium 140 mmol/L (137-145)
== END 2024-10-15 08:02 | disposition home or self-care (01) ==
LOC: ANHLAB 08:09
PROVIDERS: PCP Internal Medicine; Visit Provider Internal Medicine Cardiovascular Disease
DX: I10 Essential (primary) hypertension (principal); Z79.899 Other long term (current) drug therapy
CPT/HCPCS: 36415; 80048

== ENCOUNTER 2024-10-15 13:07 | Outpatient (CLI) | payer MEDICARE, OTHER, SELFPAY | END 2024-10-15 13:08 | disposition home or self-care (01) | PROVIDERS: PCP Internal Medicine; Visit Provider Internal Medicine | DX: J02.9 Acute pharyngitis, unspecified (principal) | CPT/HCPCS: 87070 ==

== ENCOUNTER 2024-11-05 13:48 | Outpatient (CLI) | payer MEDICARE, OTHER, SELFPAY ==
--- OUTSIDE RECORDS SUMMARY | 2024-11-05 14:40 | XMS_ITS | Encounter Summary ---
Author Organization [facility] Address [address] [place] [address] Care Team Providers Care Burr Machine Operator Name Role Phone Boy Urbano MD Primary Care Provider + Encounter Details Date Type Department Care Team (Late st Contact Info) Description 09/11/2002 Outpatient [facility] [address] [place] [address] Cornell Resendez MD [address] [facility] [address] [place] [address] Social History Tobacco Use Types Packs/Day Years Used Date Smoking Tobacco: Never Assessed Sex and Gender Information Value Date Recorded Sex Assigned at Not on file 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
--- OUTSIDE RECORDS SUMMARY | 2024-11-05 14:40 | XMS_ITS | Data Portability ---
Author Organization [place] [facility], Main Office Address [address] [place] [address] Care Team Providers Care Waxer Operator Name Role Phone IMANI WELLS Primary Care Provider [phone] IMANI WELLS Referring Provider [phone] Assessment Encounter Date Assessment Date Assessment LastModified by Organization Details LastModified Time 04/18/2023 04/18/2023 HPI: 72-year-old male came in today for evaluation of his left knee pain. He started having some symptoms several weeks ago. He has not recall any injury or trauma. He has not been overly active. Pain came on spontaneously. He has pain in the knee with weight-bearing and walking. He has noticed swelling in the knee. He has not been taking any anti-inflammatori es. He is able take Them but just has not been taking them. We have seen him in the past for his knees. He has had rather severe patellofemoral arthritis and previous x-rays. Physical exam: 72-year-old male very alert pleasant. He has moderate effusion left knee. Moderate pain with patellofemoral grind. Mild tenderness over the medial joint line palpation. Range of motion is from 3-135 degrees. Hip range of motion is full without discomfort. No lateral joint line tenderness. No edema in lower extremity. No redness or warmth. After ChloraPrep was used on skin 20 mg Kenalog and 3 cc of 0.5% ropivacaine was injected into the left knee. Risk of infection discussed. Impression: 72-year-old male who has severe patellofemoral osteoarthritis as well as mild medial compartment osteoarthritis. This was aggravated several weeks ago. He has an effusion and soreness in the knee. Talked about cortisone injection which she would like to try today. He tolerated the injection well. He is going to start taking [id number] anti-inflammatori es, ibuprofen 600 mg b.i.d. until the injection works well for him. After that he can use it intermittently depending on symptoms and activities. He can repeat cortisone injections often as every 3 months. We will plan on seeing him back as needed. 20 minutes was spent treatment patient more than half of this in [id number] conversation Not available 04/18/2023 13:30:50 Plan of Treatment Reminders Order Date Submit Date Provider Last Modified By Organization Details Last Modified Time Details Appointments None recorded. Lab None recorded. Referral None recorded. Procedures injection/a spiration joint/bursa (PROC) 2022 023 [email or web address] In-Office Order, Internal Use Only DO Not Attach Compendium DO Not Attach Compendium, Do Not Delete/merge, [id number] 09:25:44 Surgeries None recorded. Imaging XR, knee 2022 023 [email or web address] 3 [facility], [facility], [place], [address], 13:45:37 Medication Orders bupivacaine HCl 0.5 % (5 mg/mL) injection solution 2022 023 [email or web address] 3 Not available 13:11:50 Kenalog 10 mg/mL suspension for injection 2022 023 [email or web address] 3 Not available 3 13:11:51 Patient TargetsNo targets recorded. Patient InstructionsNo instructions recorded. Reason for Referral None Reported. Results Created Date Observation Date Name Description Value Unit Range Abnormal Flag Note LastModifiedBy Organization Detail LastModifiedTime 04/21/20 21 XR, knee No observ ation record ed. [id number] [facility] [address], [place], [address], 12/05/2022 20:58:20 04/18/20 23 XR, knee No observ ation record ed. [email or web address] [facility] [address], [place], [address], 04/18/2023 13:27:55 Result Notes None recorded. Problems Name Problem SNOMED Code Status Onset Date Resolution Date Notes Provider Name and Address Organization Details Recorded Time Pain of left knee joint [id number] Active 2022 Hina Sams, RMKal null, [place] [facility] 12:30:03 Problem Notes None recorded. Procedures Surgical History Date Name Laterality Status Provider Name and Address Organization Details Recorded Time hernia repair completed Not Available [facility] 12/05/2022 20:55:58 Rotator cuff surgery completed Not Available [facility] 12/05/2022 20:55:58 Imaging Results Imaging Date Name Status LastModified by Organiz ation Details LastModified Time 04/21/2021 XR, knee completed [id number] [facility] [address], [place], [address], 12/05/2022 20:58:20 04/18/2023 XR, knee completed [email or web address] [facility] [address], [place], [address], 04/18/2023 13:27:55 Procedure Notes None recorded. Medical Equipment None Reported. Medications Name Sig Start Date Stop Date Status Note LastModified by Organization Details LastModified Time celecoxib 200 mg capsule TAKE 1 CAPSULE BY MOUTH DAILY active Not Available Not Available Not Available cyclobenzapr ine 10 mg tablet active Not Available Not Available Not Available primidone 50 mg tablet active Not Available Not Available No t Available doxycycline hyclate 100 mg capsule TAKE 1 CAPSULE BY MOUTH TWICE DAILY FOR 10 DAYS active Not Available Not Available No t Available atorvastatin 20 mg tablet active Not Available Not Available Not Available azithromycin 250 mg tablet FOLLOW PACKAGE DIRECTIONS active Not Available Not Available N ot Available indapamide 2.5 mg tablet active Not Available Not Available Not Available sucralfate 1 gram tablet TAKE 1 TABLET BY MOUTH FOUR TIMES DAILY active Not Available Not Available Not Available bupivacaine HCl 0.5 % (5 mg/mL) injection solution Take 3 mg by injection route. 2022 active Not Available Not Available Not Avai lable acetaminophe n 300 mg-codeine 15 mg tablet TAKE 1 TABLET BY MOUTH TWICE DAILY NEEDED FOR PAIN active Not Available Not Available No t Available amlodipine 5 mg tablet active Not Available Not Available No t Available sulfamethoxa zole 800 mg-trimethop rim 160 mg tablet active Not Available Not Available Not Available tramadol 50 mg tablet TAKE 1 TABLET BY MOUTH EVERY NIGHT AT BEDTIME NEEDED FOR PAIN active Not Available Not Available No t Available famotidine 20 mg tablet TAKE 1 TABLET BY MOUTH TWICE DAILY active Not Available Not Available No t Available amitriptylin e 25 mg tablet TAKE 1 TABLET BY MOUTH EVERY DAY AT BEDTIME active Not Available Not Available No t Available dicyclomine 20 mg tablet TAKE 1 TABLET BY MOUTH THREE TIMES DAILY NEEDED FOR ABDOMINAL DISCOMFORT active Not Available Not Available N ot Available Kenalog 10 mg/mL suspension for injection Take 2 mg by injection route. 2022 active [facility]: [phone] Not Available Not Available Not Available amitriptylin e 10 mg tablet TAKE 1 TABLET BY MOUTH EVERY DAY AT BEDTIME active Not Available Not Available No t Available pantoprazole 40 mg tablet,delay ed release TAKE 1 TABLET BY MOUTH AT BEDTIME FOR 4 WEEKS active Not Available Not Available No t Available hyoscyamine sulfate 0.125 mg tablet TAKE 1 TABLET BY MOUTH FOUR TIMES DAILY active Not Available Not Available Not Available lisinopril 10 mg tablet TAKE 1 TABLET BY MOUTH ONCE DAILY active Not Available Not Available No t Available indapamide 1.25 mg tablet active Not Available Not Available Not Available codeine 10 mg-guaifenes in 100 mg/5 mL oral liquid TAKE 10 ML BY MOUTH EVERY DAY AT BEDTIME active Not Available Not Available N ot Available metoprolol succinate ER 25 mg tablet,exten ded release 24 hr TK 1 T PO QD active Not Available Not Available No t Available lisinopril 40 mg tablet active Not Available Not Available Not Available neomycin 3.5 mg/g-polymyx in B 10,000 unit/g-dexam eth 0.1 % eye oint APPLY A SMALL AMOUNT INTO BOTH EYES EVERY NIGHT AT BEDTIME FOR DRYNESS DUE TO CAPSULE-PAP active Not Available Not Available Not Available duloxetine 30 mg capsule,ravi yed release TAKE 1 CAPSULE BY MOUTH ONCE DAILY active Not Available Not Available No t Available solifenacin 10 mg tablet TAKE 1 TABLET BY MOUTH DAILY active Not Available Not Available Not Available fenofibrate 160 mg tablet TAKE 1 TABLET BY MOUTH DAILY active Not Available Not Available Not Available trospium ER 60 mg capsule,exte nded release 24 hr TAKE 1 CAPSULE BY MOUTH DAILY active Not Available Not Available Not Available Myrbetriq 25 mg tablet,exten ded release TAKE 1 TABLET BY MOUTH DAILY active Not Available Not Available Not Available Procto-Med HC 2.5 % topical cream perineal applicator active Not Available Not Available N ot Available Vitals Date Recorded Body mass index (BMI) Body height Body weight Provider Name and Address Organization Details Last Updated DateTime 04/21/2021 35.2 kg/m2 170.18 cm 972882.28 g Not Available [facility] 12/05/2022 20:56:03 Social History Question Answer Notes LastModified by Organizat ion Details LastModified Time Tobacco Smoking Status Never Smoker PHYLLIS Vickers null, [place] [facility] 04/18/2023 12:29:46 What Is Your Level Of Alcohol Consumption? None [email or web address] Information not available 04/18/2023 Sex: Unknown Functional Status None recorded. Mental Status None recorded. Family History Relationship Description Onset Age of this Age Resolved Age Notes LastModified by Organization Details LastModified Time Father Hypertensive disorder [id number] Not available 12/05/2022 20:55:58 Father Heart disease [email or web address] Not available 2022 12:29:37 Medical History Condition Response BLINDNESS N KIDNEY STONES N MRSA N CARPAL TUNNEL SYNDROME N LUNG DISEASE/DISORDER N HISTORY OF DRUG ABUSE N RADIATION / CHEMOTHERAPY N COPD N SPORTS INJURY N ANKLE PAIN N BLOOD DISEASES N SCHIZOPHRENIA N SHINGLES N SHOULDER PAIN N DEPRESSION (INCLUDING POST ) N BOWEL PROBLEMS N STROKE/TIA N ULCERS N KNEE PAIN N BENIGN PROSTATIC HYPERPLASIA N OBESITY N GERD/NAUSEA N ANEURYSM N URINARY/BLADDER/KIDNEY PROBLEMS N CORONARY ARTERY DISEASE (CAD) N ADDICTION CONCERNS N USE OF BLOOD THINNERS N SKIN PROBLEMS N EMPHYSEMA N MUSCLE,JOINT OR BONE PROBLEMS N DVT N STOMACH ULCERS N BLOOD CLOTS N USE OF NSAIDS N CONCUSSION OR SPINAL TRAUMA N NEUROPATHY N AIDS/HIV N FRACTURES N HYPERTENSION Y ELBOW PAIN N TOURETTE'S N Metal allergy N ANXIETY DISORDER N BLOOD TRANSFUSION N ANEMIA/BLOOD DISORDER N BIPOLAR DISORDER N BRONCHITIS N OSTEOARTHRITIS N TUBERCULOSIS N FOOT PROBLEM N HEART VALVE DISORDERS N ALLERGIES/HAYFEVER N SOFT TISSUE INJURY N INFECTIOUS DISEASE N HEART ARRHYTHMIA N INSOMNIA N HIGH CHOLESTEROL / HYPERLIPIDEMIA N RHEUMATOID ARTHRITIS N EDEMA N CHRONIC PAIN SYNDROME N CAROTID BLOCKAGE N BACK / NECK PROBLEMS N HAVE YOU BEEN HOSPITALIZED OR SEEN IN [facility] IN THE PAST YEAR ? N BURSITIS N HERNIATED DISC N DIALYSIS N FIBROMYALGIA N OSTEOPOROSIS N ARTHRITIS N NO SIGNIFICANT PAST MEDICAL HISTORY N PERIPHERAL NEUROPATHY N DIABETES, TYPE N HEARTBURN / REFLUX N HEPATITIS / LIVER DISEASE N GOUT N ALZHEIMER'S DISEASE N SLEEP DISORDER N HERPES N HEADACHES/MIGRAINES N SEIZURES/EPILEPSY N VASCULAR DISEASE N Blood Disorder N HIP PAIN N DIZZINESS N HEAD TRAUMA OR INJURY N HEART DISEASE/HEART PROBLEMS N MULTIPLE SCLEROSIS N CANCER: SPECIFY N CARDIAC ARRHYTHMIA N ANESTHESIA COMPLICATIONS N ATRIAL FIBRILLATION N AUTOIMMUNE DISEASE N Past Encounters Encounter ID Performer Location Encounter Start Date Encounter Closed Date Diagnosis/Indication Diagnosis SNOMED-CT Code Diagnosis ICD10 Code Diagnosis Note [id number] [facility] [address] [facility] [address] [place] [address] 04/21/2021 00:00:00 04/24/2021 14:08:09 [id number] [place] [facility] [address] [place] [address] 04/18/2023 11:49:55 04/18/2023 13:45:37 Pain of left knee joint [id number] M25.562 Health Concerns Section Related Observation LastModified by Organization Detai ls LastModified Time None Recorded Concern Status LastModified by Organization Details LastModified Time None Recorded Advance Directives Directive None Recorded Payers Encounter Date Sequence Insurance Name Policy Number Policy Bass Covered Member ID Bass Member ID Guarantor Name 04/18/2023 1 [place] Aj Sosa [id number] Aj Sosa 04/18/2023 2 [employer] (MEDICARE SUPPLEMENT) Aj Sosa [id number] Aj Sosa
--- OUTSIDE RECORDS SUMMARY | 2024-11-05 14:40 | XMS_ITS | Encounter Summary ---
Author Organization [facility] [facility] Address 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
--- OUTSIDE RECORDS SUMMARY | 2024-11-05 14:41 | XMS_ITS | Encounter Summary ---
Author Organization [facility] Address [address] [place] [address] Care Team Providers Care Engine Boss Name Role Phone Boy Urbano MD Primary Care Provider + Encounter Details Date Type Department Care Team (Late st Contact Info) Description 08/26/2006 Outpatient [facility] [address] [place] [address]. 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
--- OUTSIDE RECORDS SUMMARY | 2024-11-05 14:41 | XMS_ITS | Encounter Summary ---
Author Organization [facility] Address [address] [place] [address] Care Team Providers Care Union Organizer Name Role Phone Boy Urbano MD Primary Care Provider + Encounter Details Date Type Department Care Team (Late st Contact Info) Description 03/24/2003 Outpatient [facility] [address] [place] [address]. 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
--- OUTSIDE RECORDS SUMMARY | 2024-11-05 14:41 | XMS_ITS | Referral Summary ---
Author Organization [facility] [employer] Address [address] [facility] [place] [address] Care Team Providers Care Driftman Name Role Phone Allan Shields DO Primary Care Provider [phone] Source Comments [facility] [employer] [facility] [facility],non-owned Affiliates and Associated Physician Practices is amultiple site organization consisting of ambulatory clinics and hospital sitesin [place], [place], [place] and [place]. This disclosure is being madepursuant to the Care Everywhere program and may not contain all information available regarding this patient. Last updated [employer] [facility] Allergies No known active allergies Medications * Be aware that medications may not be up to date on this document. Alwaysverify current medications with the patient. Medication Sig Dispensed Refills Start Date End Date Status temazepam (RESTORIL) 30 MG capsuleIndications:Ins omnia Take 1 Cap by mouth nightly as needed for Insomnia. 30 5 09/05/2009 Active Immunizations Name Administration Dates Next Due INFLUENZA VACCINE 10/06/2009 Social History Tobacco Use Types Packs/Day Years Used Date Smoking Tobacco: Never Alcohol Use Standard Drinks/Week Comments Yes 2.5 (1 standard drink = 0.6 oz p ure alcohol) Sex and Gender Information Value Date Recorded Sex Assigned at Not on file Gender Identity Not on file Sexual Orientation Not on file Last Filed Vital Signs Vital Sign Reading Time Taken Comments Blood Pressure 160/88 09/08/2009 1:27 PM STEAM METER READER Pulse 72 09/08/2009 1:27 PM STEAM METER READER Temperature - - Respiratory Rate - - Oxygen Saturation - - Inhaled Oxygen Concentration - - Weight 109.8 kg (242 lb) 09/08/2009 1:27 PM STEAM METER READER Height 174 cm (5' 8.5 ) 09/08/2009 1:27 PM STEAM METER READER Body Mass Index 36.26 09/08/2009 1:27 PM STEAM METER READER Plan of Treatment Not on file Procedures Procedure Name Priority Date/Time Associated Diagnosis Comments LIPID PROFILE Routine 12/21/2008 8:15 AM CDT Unspecified General Medical Examination from Last 3 Months or Most Recently Relevant to Health Maintenance Results * (ABNORMAL) LIPID PROFILE (12/21/2008 8:15 AM CDT) Cholesterol 145 100 - 199 mg/dL [facility] INSURANCE BILL Triglycerides 153(H) 0 - 149 mg/dL [facility] INSURANCE BILL HDL Cholesterol 37(L) >39 mg/dL [facility] INSURANCE BILL Comment: According to ATP-III Guidelines, HDL-C >59 mg/dL is considered a negative risk factor for CHD. VLDL Calculated 31 5 - 40 mg/dL [facility] INSURANCE BILL LDL Calculated 77 0 - 99 mg/dL [facility] INSURANCE BILL BLOOD SPECIMEN / Unknown 12/21/2008 8:15 AM CDT 12/21/2008 10:44 PM CDT Narrative Resulting Agency Comment [facility] [address] ??[facility] [phone] Gab Lamar MD LAB - CHEMISTRY DEBRA Ribeiro Organization Address City/State/ZIP Co de Phone Number [facility] INSURANCE BILL from Last 3 Months or Most Recently Relevant to Health Maintenance Care Teams Driftman Relationship Specialty Start Date End Date Allan Shields DO [address] [facility] [address] [place] [address] PCP - General 02/24/18
--- OUTSIDE RECORDS SUMMARY | 2024-11-05 14:41 | XMS_ITS | Encounter Summary ---
Author Organization [facility] Address [address] [address] Care Team Providers Care Principal Hardware Architect Name Role Phone Allan Shields DO Primary Care Provider [phone] Encounter Details Date Type Department Care Team (Late st Contact Info) Description 11/14/2021 Lab Requisition [facility] Care Pathology Lab [address] [place] [address] Keli Cota MD [address] [place], [place] [id number] Illness, unspecified Social History Tobacco Use Types Packs/Day Years [...] on file documented as of this encounter Procedures Procedure Name Priority Date/Time Associated Diagnosis Comments PATH CONSULT ON REFERRED CASE Routine 11/10/2021 1:01 PM LOBBY ATTENDANT Illness, unspecified documented in this encounter Results * PATH CONSULT ON REFERRED CASE (11/10/2021 1:01 PM LOBBY ATTENDANT) Final Diagnosis URINE, VOIDED, THIN PREP, CYTOLOGY (OSC: [id number]; 11/10/2021): - No malignant cells see (TPS Category II, negative for high grade urothelial carcinoma) 11/14/2021 4:04 PM LOBBY ATTENDANT [facility] Microscopic Description and Comment Performed. 11/14/2021 4:04 PM LOBBY ATTENDANT [facility] Clinical History FREQUENCY 11/14/2021 4:04 PM [facility] Materials Received Prepared slide received from [facility] [id number]. All material will be returned. 11/14/2021 4:04 PM [facility] Disclaimer The performance characteristics of all immunohistochemical and indirect immunofluorescence stains (if any) cited in this report were determined by the Histopathology Laboratory of [facility]. Some of these tests were developed by our own laboratory and have not been cleared or approved by the US Food and Drug Administration. The FDA does not require this test to go through premarket FDA review. These tests are used for clinical purposes. They should not be regarded as investigational or for research. This laboratory is certified under the Clinical Laboratory Improvement Amendments (CLIA) as qualified to perform high complexity clinical laboratory testing. This case has been personally reviewed and interpreted by the attending (teaching) pathologist. 11/14/2021 4:04 PM [facility] Case Report Surgical Pathology Report ? Case: [id number] ? Authorizing Provider: ??Keli Cota MD ? Collected: ? 11/10/2021 01:01 PM ? Ordering Location: ? [facility] ? Received: ?11/14/2021 01:01 PM ? Pathologist: ? Gali Malik MD ? Specimen: ?Slide Consultation ? 11/14/2021 4:04 PM LOBBY ATTENDANT [facility] Embedded Images 11/14/2021 4:04 PM LOBBY ATTENDANT [facility] Pathology/Cytolo gy SURGICAL PATHOLOGY CONSULTATION AND REPORT ON REFERRED SLIDES PREPARED ELSEWHERE / Unknown 11/10/2021 1:01 PM LOBBY ATTENDANT 11/14/2021 1:01 PM LOBBY ATTENDANT Keli Cota MD LAB - PATHOLOGY/CYTO LOGY ORDERABLES Performing Organization Address City/State/[facility] Co de Phone Number [facility] PATHOLOG[facility] [address] [phone] documented in this encounter Visit Diagnoses Diagnosis Illness, unspecified documented in this encounter Care Teams Principal Hardware Architect Relationship Specialty Start Date End Date Allan Shields DO [address] [facility] [address] [facility] [address] [place] [address] PCP - General 02/24/18 documented as of this encounter
--- OUTSIDE RECORDS SUMMARY | 2024-11-05 14:41 | XMS_ITS | Patient Health Summary ---
Author Organization [facility] [employer] Address [address] [facility] [place] [address] Care Team Providers Care Research Development Director Name Role Phone Allan Shields DO Primary Care Provider [phone] Note from [facility] [employer] [facility] [employer],non-owned Affiliates and Associated Physician Practices is amultiple site organization consisting of ambulatory clinics and hospital sitesin [place], [place], [place] and [place]. This disclosure is being madepursuant to the Care Everywhere program and may not contain all information available regarding this patient. Last updated 18.[facility] [employer] Allergies No known active allergies Medications * Be aware that medications may not be up to date on this document. Alwaysverify current medications with the patient. * temazepam (RESTORIL) 30 MG capsule(Started 09/05/2009) Take 1 Cap by mouth nightly as needed for Insomnia. 5 refills left Immunizations * INFLUENZA VACCINE(Given 10/06/2009) Social History Tobacco Use Types Packs/Day Years [...] Comments Blood Pressure 160/88 09/08/2009 1:27 PM VEST BASTER Pulse 72 09/08/2009 1:27 PM VEST BASTER Temperature - - Respiratory Rate - - Oxygen Saturation - - Inhaled Oxygen Concentration - - Weight 109.8 kg (242 lb) 09/08/2009 1:27 PM VEST BASTER Height 174 cm (5' 8.5 ) 09/08/2009 1:27 PM VEST BASTER Body Mass Index 36.26 09/08/2009 1:27 PM VEST BASTER Procedures * PATH CONSULT ON REFERRED CASE(Performed 11/10/2021) Performed for Illness, unspecified * COMPREHENSIVE METABOLIC PANEL(Performed 09/15/2009) Performed for Calcium Disorder * PTH INTACT(Performed 09/15/2009) Performed for Calcium Disorder * URINALYSIS - POINT OF CARE(Performed 01/05/2009) Performed for Routine General Medical Examination at a Health Care Facility * PROSTATE SPECIFIC ANTIGEN SCREEN(Performed 12/21/2008) Performed for Unspecified General Medical Examination * LIPID PROFILE(Performed 12/21/2008) Performed for Unspecified General Medical Examination * GENERAL HEALTH PANEL(Performed 12/21/2008) Performed for Unspecified General Medical Examination Results * PATH CONSULT ON REFERRED CASE (11/10/2021 1:01 PM VEST BASTER) Final Diagnosis URINE, VOIDED, THIN PREP, CYTOLOGY (OSC: [id number]; 11/10/2021): - No malignant cells see (TPS Category II, negative for high grade urothelial carcinoma) 11/14/2021 4:04 PM [facility] Microscopic Description and Comment Performed. 11/14/2021 4:04 PM [facility] Clinical History FREQUENCY 11/14/2021 4:04 PM [facility] Materials Received Prepared slide received from [facility] [id number]. All material will be returned. 11/14/2021 4:04 PM [facility] Disclaimer The performance characteristics of all immunohistochemical and indirect immunofluorescence stains (if any) cited in this report were determined by the Histopathology Laboratory of [facility]. Some of these tests were developed by [...] the attending (teaching) pathologist. 11/14/2021 4:04 PM [facility] Case Report Surgical Pathology Report ? Case: [id number] ? Authorizing Provider: ??Keli Cota MD ? Collected: ? 11/10/2021 01:01 PM ? Ordering Location: ? [facility] ? Received: ?11/14/2021 01:01 PM ? Pathologist: ? Gali Malik MD ? Specimen: ?Slide Consultation ? 11/14/2021 4:04 PM VEST BASTER [facility] Embedded Images 11/14/2021 4:04 PM VEST BASTER [facility] Pathology/Cytolo gy SURGICAL PATHOLOGY CONSULTATION AND REPORT ON REFERRED SLIDES PREPARED ELSEWHERE / Unknown 11/10/2021 1:01 PM VEST BASTER 11/14/2021 1:01 PM VEST BASTER Keli Cota MD LAB - PATHOLOGY/CYTO LOGY ORDERABLES [facility] [address] [place] [address], [facility] [phone] * PTH INTACT (09/15/2009 3:30 PM VEST BASTER) PTH Intact 32 10 - 65 pg/mL [facility] Comment: ? INTERPRETIVE GUIDE ? INTACT PTH IN RELATION TO CALCIUM NORMAL PARATHYROID ?NORMAL ? NORMAL HYPOPARATHYROIDISM ?LOW OR LOW NORMAL ?LOW HYPERPARATHYROIDISM ?? PRIMARY ?NORMAL OR HIGH ? HIGH ?? SECONDARY ?HIGH ? NORMAL OR LOW ?? TERTIARY ? HIGH ? HIGH NON-PARATHYROID ?? HYPERCALCEMIA ?LOW OR LOW NORMAL ?HIGH ? Test Performed at: [facility] [address] ??[id number] ILEANA KING DO,MPH BLOOD SPECIMEN / Unknown 09/15/2009 3:30 PM VEST BASTER 09/16/2009 3:27 AM VEST BASTER Gab Lamar MD LAB - [facility] [address] [place] [address] * (ABNORMAL) COMPREHENSIVE METABOLIC PANEL (09/15/2009 3:30 PM VEST BASTER) Glucose 90 65 - 99 mg/dL [facility] Comment:FASTING REFERENCE IN TERVAL BUN 19 7 - 25 mg/dL [facility] Creatinine 1.31 0.76 - 1.46 mg/dL [facility] eGFR by MDRD 56(L) > OR = 60 mL/min/1. 73m2 [facility] eGFR by MDRD >60 > OR = 60 mL/min/1. 73m2 [facility] BUN/Creatinine Ratio NOT APPLICABLE 6 - 22 (calc) [facility] Comment: BUN/CREATININE RATIO IS NOT REPORTED WHEN THE BUN AND CREATININE VALUES ARE WITHIN NORMAL LIMITS. Sodium 142 135 - 146 mmol/L [facility] Potassium 4.1 3.5 - 5.3 mmol/L [facility] Chloride 105 98 - 110 mmol/L [facility] CO2 27 21 - 33 mmol/L [facility] Calcium 9.3 8.6 - 10.2 mg/dL [facility] Protein Total 7.3 6.2 - 8.3 g/dL [facility] Albumin 4.7 3.6 - 5.1 g/dL [facility] Globulin Total 2.6 2.1 - 3.7 g/dL (calc) [facility] Albumin/Globuli n Ratio 1.8 1.0 - 2.1 (calc) [facility] Bilirubin Total 0.7 0.2 - 1.2 mg/dL [facility] Alkaline Phosphatase 73 40 - 115 U/L [facility] AST 30 10 - 35 U/L [facility] ALT 40 9 - 60 U/L [facility] Comment: Test Performed at: [facility] [address] [place], [place] ??[id number] ILEANA KING DO,MPH BLOOD SPECIMEN / Unknown 09/15/2009 3:30 PM VEST BASTER 09/16/2009 3:27 AM VEST BASTER Gab Lamar MD LAB - CHEMISTRY [facility] Organization Address City/State/ZIP Co de Phone Number [facility] [address] [place] [phone] * URINALYSIS - POINT OF CARE (UA) (01/05/2009 4:38 PM CDT) [facility] Clarity UA POCT clear Color UA POCT straw Leukocyte UA neg Negative Nitrite UA POCT neg Negative Urobilinogen UA POCT neg 0.1 - 1.0 EU/dL Protein UA POCT neg Negative pH UA 5.0 5.0 - 8.0 pH units Blood UA neg Negtive Specific [place] UA POCT 1.020 1.002 - 1.030 Ketone UA neg Negative Bilirubin UA POCT neg Negative Glucose UA neg Negative Urine specimen (specimen) URINE / Unknown Gab Lamar MD LAB - POINT OF CARE ORDERABLES * (ABNORMAL) GENERAL HEALTH PANEL (12/21/2008 8:15 AM CDT) [facility] Chemistries [facility] INSURANCE BILL Glucose 93 65 - 99 mg/dL [facility] INSURANCE BILL BUN 18 5 - 26 mg/dL [facility] INSURANCE BILL Creatinine 1.11 0.76 - 1.27 mg/dL [facility] INSURANCE BILL eGFR by MDRD >59 >59 mL/min/1. 73 [facility] INSURANCE BILL eGFR by MDRD >59 >59 mL/min/1. 73 [facility] INSURANCE BILL Comment: Note: ??Persistent reduction for 3 months or more in an eGFR <60 mL/min/1.73 m2 defines CKD. ??Patients with eGFR values >/=60 mL/min/1.73 m2 may also have CKD if evidence of persistent proteinuria is present. Additional information may be found at www.kdoqi.org. BUN/Creatinine Ratio 16 8 - 27 [facility] INSURANCE BILL Sodium 141 135 - 145 mmol/L [facility] INSURANCE BILL Potassium 4.0 3.5 - 5.2 mmol/L [facility] INSURANCE BILL Chloride 104 97 - 108 mmol/L [facility] INSURANCE BILL CO2 25 20 - 32 mmol/L [facility] INSURANCE BILL Calcium 9.4 8.5 - 10.6 mg/dL [facility] INSURANCE BILL Protein Total 7.1 6.0 - 8.5 g/dL [facility] INSURANCE BILL Albumin 4.3 3.5 - 5.5 g/dL [facility] INSURANCE BILL Globulin Total 2.8 1.5 - 4.5 g/dL [facility] INSURANCE BILL Albumin/Globulin Ratio 1.5 1.1 - 2.5 [facility] INSURANCE BILL Bilirubin Total 1.0 0.1 - 1.2 mg/dL [facility] INSURANCE BILL Alkaline Phosphatase 68 25 - 150 IU/L [facility] INSURANCE BILL AST 45(H) 0 - 40 IU/L [facility] INSURANCE BILL ALT 41 0 - 55 IU/L [facility] INSURANCE BILL . [facility] INSURANCE BILL Thyroid [facility] INSURANCE BILL TSH 2.794 0.450 - 4.500 uIU/mL [facility] INSURANCE BILL . [facility] INSURANCE BILL CBC Platelet Count and Differential [facility] INSURANCE BILL WBC 5.8 4.0 - 10.5 x10E3/uL [facility] INSURANCE BILL RBC 4.63 4.10 - 5.60 x10E6/uL [facility] INSURANCE BILL Hemoglobin 14.4 12.5 - 17.0 g/dL [facility] INSURANCE BILL Hematocrit 42.2 36.0 - 50.0 % [facility] INSURANCE BILL MCV 91 80 - 98 fL [facility] INSURANCE BILL MCH 31.0 27.0 - 34.0 pg [facility] INSURANCE BILL MCHC 34.0 32.0 - 36.0 g/dL [facility] INSURANCE BILL RDW 14.5 11.7 - 15.0 % [facility] INSURANCE BILL Platelet Count 137(L) 140 - 415 x10E3/uL [facility] INSURANCE BILL Granulocytes % 60 40 - 74 % [facility] INSURANCE BILL Lymphocytes % 29 14 - 46 % [facility] INSURANCE BILL Monocytes % 8 4 - 13 % [facility] INSURANCE BILL Eosinophils % 2 0 - 7 % [facility] INSURANCE BILL Basophils % 1 0 - 3 % [facility] INSURANCE BILL Granulocytes Absolute 3.5 1.8 - 7.8 x10E3/uL [facility] INSURANCE BILL Lymphocytes Absolute 1.7 0.7 - 4.5 x10E3/uL [facility] INSURANCE BILL Monocytes Absolute 0.5 0.1 - 1.0 x10E3/uL [facility] INSURANCE BILL Eosinophils Absolute 0.1 0.0 - 0.4 x10E3/uL [facility] INSURANCE BILL Basophils Absolute 0.1 0.0 - 0.2 x10E3/uL [facility] INSURANCE BILL Comment Hematology NOT AVAIL. [facility] INSURANCE BILL BLOOD SPECIMEN / Unknown 12/21/2008 8:15 AM CDT 12/21/2008 10:44 PM CDT Narrative [facility] INSURANCE BILL - 12/22/2008 7:11 AM CDT Additional Result Information HEMATOLOGY COMMENTS: ??BLOOD,URINE ([facility]): RESULT NOT AVAILABLE Resulting Agency Comment [facility] [address] ??[facility] [phone] Gab Lamar MD LAB - CHEMISTRY DEBRA WOOTEN [facility] INSURANCE BILL * PROSTATE SPECIFIC ANTIGEN SCREEN (12/21/2008 8:15 AM CDT) PSA 1.9 0.0 - 4.0 ng/mL [facility] INSURANCE BILL Comment: Carlos ECLIA methodology. ?. According to the [place] [employer], PSA should be undetectable after radical prostatectomy. A PSA of less than 0.5 ng/mL (or undetectable) is not likely to be associated with disease recurrence within five years of treatment. Values obtained with different assay methods or kits cannot be used interchangeably. Results cannot be interpreted as absolute evidence of the presence or absence of malignant disease. BLOOD SPECIMEN / Unknown 12/21/2008 8:15 AM CDT 12/21/2008 10:44 PM CDT Narrative Resulting Agency Comment [facility] [address] ??[facility] [phone] Gab Lamar MD LAB - CHEMISTRY DEBRA WOOTEN Performing Organization Address City/[facility]/ZIP Co de Phone Number [facility] INSURANCE BILL * (ABNORMAL) LIPID PROFILE (12/21/2008 8:15 AM [...] 10:44 PM CDT Narrative Resulting Agency Comment [facility] [address] ??[facility] [phone] Gab Lamar MD LAB - CHEMISTRY DEBRA WOOTEN Performing Organization Address [facility]/ZIP Co de Phone Number [facility] INSURANCE BILL Care Teams Research Development Director Relationship Specialty Start Date End Date Allan Shields DO [address] [facility] [address] [place] [address] PCP - General 02/24/18
--- OUTSIDE RECORDS SUMMARY | 2024-11-05 14:41 | XMS_ITS | Clinical Summary ---
Author Organization [facility] Address [address], [place] [address] Phone Care Team Providers Care Manual Arts Therapist Name Role Phone Unavailable Primary Care Provider Unavailabl e Medications Medication Sig Dispensed Refills Start Date End Date Status lisinopril-hydroCHLOROthi azide (PRINZIDE,ZESTORETIC) 10-12.5 MG per tablet 1 tab/cap qday 0 09/08/2017 Active Active Problems Problem Noted Date Diagnosed Date Other acute kidney failure 08/14/2017 Family History Medical History Relation Comments Heart failure Relative Kidney disease Neg Hx Kidney stone Neg Hx Relation Status Comments Relative Social History Tobacco Use Types Packs/Day Years Used Date Smoking Tobacco: Never Assessed Sex and Gender Information Value Date Recorded Sex Assigned at Not on file Gender Identity Not on file Sexual Orientation Not on file Last Filed Vital Signs Vital Sign Reading Time Taken Comments Blood Pressure 136/72 08/14/2017 12:01 AM PASTEURISER OPERATOR Sitting, Right Pulse - - Temperature 35.9 ??C (96.7 ??F) 08/14/2017 1 2:01 AM PASTEURISER OPERATOR Respiratory Rate - - Oxygen Saturation - - Inhaled Oxygen Concentration - - Weight 108 kg (238 lb) 08/14/2017 12:01 AM PASTEURISER OPERATOR Height 175.3 cm (5' 9 ) 08/14/2017 12:0 1 AM PASTEURISER OPERATOR Body Mass Index 35.15 08/14/2017 12:01 AM PASTEURISER OPERATOR Plan of Treatment Not on file
--- OUTSIDE RECORDS SUMMARY | 2024-11-05 14:41 | XMS_ITS | Encounter Summary ---
Author Organization [facility] Address [address] [place] [address] Care Team Providers Care Street Worker Name Role Phone Boy Urbano MD Primary Care Provider + Encounter Details Date Type Department Care Team (Late st Contact Info) Description 10/21/2002 Outpatient [facility] [address] [place] [address]. [place] [address] Edwin Garcia MD Social History Tobacco Use Types Packs/Day Years Used Date Smoking Tobacco: Never Assessed Sex and Gender Information Value Date Recorded Sex Assigned at Not on file Legal Sex Male 4:42 AM POWDER PRESS OPERATOR Gender Identity Not on file Sexual Orientation Not on file documented as of this encounter Plan of Treatment Not on file documented as of this encounter Visit Diagnoses Not on filedocumented in this encounter Care Teams Street Worker Relationship Specialty Start Date End Date Boy Urbano MD [address] [place] [phone] PCP - General 12/04/12 10/07/18 documented as of this encounter
--- OUTSIDE RECORDS SUMMARY | 2024-11-05 14:41 | XMS_ITS | Clinical Summary ---
Author Organization [facility] Address [address] [facility] [place] [address] Care Team Providers Care Residential Support Worker Name Role Phone Allan Shields DO Primary Care Provider [phone] Source Comments [facility],non-owned Affiliates and Associated Physician Practices is amultiple site organization consisting of ambulatory clinics and hospital sitesin [place], [place], [place] and [place]. This disclosure is being madepursuant to the Care Everywhere program and may not contain all information available regarding this patient. Last updated 18.[facility] Allergies No known active allergies Medications * [...] Comments Blood Pressure 160/88 09/08/2009 1:27 PM FORGE PRESS OPERATOR Pulse 72 09/08/2009 1:27 PM FORGE PRESS OPERATOR Temperature - - Respiratory Rate - - Oxygen Saturation - - Inhaled Oxygen Concentration - - Weight 109.8 kg (242 lb) 09/08/2009 1:27 PM FORGE PRESS OPERATOR Height 174 cm (5' 8.5 ) 09/08/2009 1:27 PM FORGE PRESS OPERATOR Body Mass Index 36.26 09/08/2009 1:27 PM FORGE PRESS OPERATOR Plan of Treatment Health Maintenance Due Date Last Done Comments COLOGUARD (AGES 45-75) - COL ON CA SCREENING 1950 COLON MONITORING 1950 COLONOSCOPY - COLON CA SCREENING 1950 CT COLONOGRAPHY - COLON CA SCREENING 1950 Colorectal Cancer Screening 1950 FIT - COLON CA SCREENING 1950 FLEX SIG - COLON CA SCREENING 1950 HEPATITIS C SCREENING 06/25/1968 DTAP/TDAP/TD VACCINES (1 - Tdap) 1969 PNEUMOCOCCAL VACCINE 50+ (1 of 1 - PCV) 2000 ZOSTER VACCINE (1 of 2) 2000 LIPID TESTING 12/21/2013 12/21/2008 COVID-19 VACCINE ( - 2023-2 5 season) 2024 INFLUENZA VACCINE (#1) 2024 10/06/2009 DEPRESSION SCREENING 10/07/2024 MEDICARE AWV ? CALENDAR YEAR 2024 Respiratory Syncytial Virus (RSV) Vaccine Pt: or over 60 yrs (1 - 1-dose 75+ series) 2025 HEPATITIS B VACCINE Aged Out No longe r eligible based on patient's age to complete this topic HIB VACCINE Aged Out No longer eligi ble based on patient's age to complete this topic HPV VACCINE Aged Out No longer eligi ble based on patient's age to complete this topic MENINGOCOCCAL (Group B) VACCINE Aged Out No longer eligible based on patient's age to complete this topic MENINGOCOCCAL VACCINE Aged Out No nii sterling eligible based on patient's age to complete this topic Procedures Procedure Name Priority Date/Time Associated Diagnosis [...] PM CDT Narrative Resulting Agency Comment [facility] [place] [address] [facility] ??[place] [phone] Gab Lamar MD LAB - CHEMISTRY DEBRA WOOTEN [facility] INSURANCE BILL from Last 3 Months or Most Recently Relevant to Health Maintenance Care Teams Residential Support Worker Relationship Specialty Start Date End Date Allan Shields DO [address] [facility] [address] [facility] [address] [place] [address] PCP - General 02/24/18
[2024-11-05 14:45] LABS: Basophils Percent Auto 0.5 % (0.2-1.2); Eosinophils Absolute Auto 0.3 K/mm3 (0-0.3); Eosinophils Percent Auto 4.7 % (0-4.4); Hematocrit 38.1 % (42.0-52.0); Hemoglobin 12.4 g/dL (14.0-18.0); Immature Granulocyte Absolute 0.03 K/mm3 (0.00-0.031); Immature Granulocyte Percent A 0.5 % (0-0.5); Lymphocytes Absolute Auto 0.96 K/mm3 (0.9-3.2); Lymphocytes Percent Auto 17.4 % (18.3-44.2); Mean Corpuscular HGB Conc 32.5 g/dl (32-36); Mean Corpuscular Hemoglobin 30.4 pg (26-34); Mean Corpuscular Volume 93.4 fl (80-100); Mean Platelet Volume 12.4 fl (7.4-10.4); Monocytes Absolute Auto 0.6 K/mm3 (0.1-0.6); Monocytes Percent Auto 10.1 % (2.6-8.5); Neutrophils Absolute Auto 3.7 K/mm3 (1.3-6.7); Neutrophils Percent Auto 66.8 % (45.5-73.1); Platelet Count Result 137 k/mm3 (150-375); Red Blood Count 4.08 M/mm3 (4.6-6.20); Red Cell Distribution Width 13.8 % (11.5-14.5); White Blood Count 5.5 K/mm3 (4.5-10.0)
[2024-11-05 14:49] LABS: Alanine Aminotransferase 23 U/L (6-50); Albumin Level 4.2 g/dL (3.5-5.1); Alkaline Phosphatase 89 U/L (38-126); Anion Gap 11 mmol/L (4-12); Aspartate Amino Transferase 27 U/L (17-59); Bilirubin,Total 0.6 mg/dL (0.2-1.3); Blood Urea Nitrogen 34 mg/dL (9-20); Calcium 9.2 mg/dL (8.4-10.2); Carbon Dioxide 25 mmol/L (22-30); Chloride 106 mmol/L (98-107); Cholesterol 103 mg/dL (0-200); Estimated Glomerular Filt Rate 44; Glucose 102 mg/dL (65-110); HDL Direct 37 mg/dL; Potassium 4.6 mmol/L (3.4-5.0); Sodium 142 mmol/L (137-145); Triglycerides 226 mg/dL (<150)
[2024-11-05 14:55] LABS: CRP < 0.5 mg/dL (<1.0); Complement C3 126 mg/dL (88-165)
[2024-11-05 15:00] LABS: LDL Cholesterol Direct 32 mg/dL
[2024-11-05 15:46] LABS: Erythrocyte Sedimentation Rate 18 mm/hr (0-20)
[2024-11-05 17:01] LABS: Vitamin D 25 Hydroxy 31.8 ng/mL
== END 2024-11-05 13:49 | disposition home or self-care (01) ==
LOC: ANHLAB 13:57
PROVIDERS: Nurse Practitioner; PCP Internal Medicine; Visit Provider Internal Medicine
DX: M06.09 Rheumatoid arthritis without rheumatoid factor, multiple sites (principal); R76.8 Other specified abnormal immunological findings in serum; I10 Essential (primary) hypertension; E55.9 Vitamin D deficiency, unspecified; R07.9 Chest pain, unspecified; E78.5 Hyperlipidemia, unspecified; Z12.5 Encounter for screening for malignant neoplasm of prostate; Z79.899 Other long term (current) drug therapy
CPT/HCPCS: 36415; 80053; 80061; 82306; 84153; 85025; 85652; 86140; 86160; 86225; G0103

== ENCOUNTER 2024-11-23 10:25 | Outpatient (CLI) | payer MEDICARE, OTHER, SELFPAY ==
--- NOTE | ~2024-11-23 | XR_ITS ---
Left Shoulder Technique: AP and scapular Y views were obtained. Clinical History: Pain Findings: No fracture or dislocation is seen. Osseous alignment is anatomic. The glenohumeral joint i s intact. There is mild AC joint degenerative change. Soft tissues are unremarkable. Impression: Mild AC joint degenerative change. Reviewed, dictated and finalized at [facility]. PING INSPECTOR Impression: Mild AC joint degenerative change.
--- OUTSIDE RECORDS SUMMARY | 2024-11-23 13:32 | XMS_ITS | Patient Health Summary ---
Author Organization [facility] Address [address] [place] [address] Care Team Providers Care Information Systems Security Specialist Name Role Phone Allan Shields DO Primary Care Provider Note from [facility],non-owned Affiliates and Associated Physician Practices is amultiple site organization consisting of ambulatory clinics and hospital sitesin [place], [place], [place] and [place]. This disclosure is being madepursuant to the Care Everywhere program and may not contain all information available regarding this patient. Last updated 18.[facility] Allergies No known active allergies Medications * [...] Comments Blood Pressure 160/88 09/08/2009 1:27 PM CONTINUITY CLERK Pulse 72 09/08/2009 1:27 PM CONTINUITY CLERK Temperature - - Respiratory Rate - - Oxygen Saturation - - Inhaled Oxygen Concentration - - Weight 109.8 kg (242 lb) 09/08/2009 1:27 PM CONTINUITY CLERK Height 174 cm (5' 8.5 ) 09/08/2009 1:27 PM CONTINUITY CLERK Body Mass Index 36.26 09/08/2009 1:27 PM CONTINUITY CLERK Procedures * PATH CONSULT ON REFERRED CASE(Performed [...] CONSULT ON REFERRED CASE (11/10/2021 1:01 PM CONTINUITY CLERK) Final Diagnosis URINE, VOIDED, THIN PREP, CYTOLOGY (OSC: [id number]; 11/10/2021): - No malignant cells see (TPS Category II, negative for high grade urothelial carcinoma) 11/14/2021 4:04 PM [facility] Microscopic Description and Comment Performed. 11/14/2021 4:04 PM [facility] Clinical History FREQUENCY 11/14/2021 4:04 PM [facility] Materials Received Prepared slide received from [facility] [id number]. All material will be returned. 11/14/2021 4:04 PM [facility] Disclaimer The performance characteristics of all immunohistochemical and indirect immunofluorescence stains (if any) cited in this report were determined by the Histopathology Laboratory of [facility]. Some of these tests were developed [...] the attending (teaching) pathologist. 11/14/2021 4:04 PM [facility] Case Report Surgical Pathology Report Case: [id number] Authorizing Provider: Keli Cota MD Collected: 11/10/2021 01:01 PM Ordering Location: [facility] Received: 11/14/2021 01:01 PM Pathologist: Gali Malik MD Specimen: Slide Consultation 11/14/2021 4:04 PM CONTINUITY CLERK [facility] Embedded Images 11/14/2021 4:04 PM CONTINUITY CLERK [facility] Pathology/Cytolo gy SURGICAL PATHOLOGY CONSULTATION AND REPORT ON REFERRED SLIDES PREPARED ELSEWHERE / Unknown 11/10/2021 1:01 PM CONTINUITY CLERK 11/14/2021 1:01 PM CONTINUITY CLERK Keli Cota MD LAB - PATHOLOGY/CYTO LOGY ORDERABLES Performing Organization Address City/[facility]/ZIP Co de Phone Number [facility] [address] [phone] * PTH INTACT (09/15/2009 3:30 PM CONTINUITY CLERK) PTH Intact 32 10 - 65 pg/mL [facility] Comment: INTERPRETIVE GUIDE INTACT PTH IN RELATION TO CALCIUM NORMAL PARATHYROID NORMAL NORMAL HYPOPARATHYROIDISM LOW OR LOW NORMAL LOW HYPERPARATHYROIDISM PRIMARY NORMAL OR HIGH HIGH SECONDARY HIGH NORMAL OR LOW TERTIARY HIGH HIGH NON-PARATHYROID HYPERCALCEMIA LOW OR LOW NORMAL HIGH Test Performed at: [employer] [address] [address] [place] [address] ILEANA KING DO,MPH BLOOD SPECIMEN / Unknown 09/15/2009 3:30 PM CONTINUITY CLERK 09/16/2009 3:27 AM CONTINUITY CLERK Gab Lamar MD LAB - CHEMISTRY ORDE SUGAR [facility] [address] [place] [address] * (ABNORMAL) COMPREHENSIVE METABOLIC PANEL (09/15/2009 3:30 PM CONTINUITY CLERK) Glucose 90 65 - 99 mg/dL [facility] [...] 60 U/L [facility] Comment: Test Performed at: [employer] [address] [place] [address] ILEANA KING DO,MPH BLOOD SPECIMEN / Unknown 09/15/2009 3:30 PM CONTINUITY CLERK 09/16/2009 3:27 AM CONTINUITY CLERK Gab Lamar MD LAB - CHEMISTRY DEBRA [facility] Organization Address City/State/ZIP Co de Phone Number [facility] [address] [place] [address] * URINALYSIS - POINT OF CARE (UA) (01/05/2009 4:38 PM CDT) Clarity UA POCT clear Color UA POCT straw Leukocyte UA neg Negative Nitrite UA POCT neg Negative Urobilinogen UA POCT neg 0.1 - 1.0 EU/dL Protein UA POCT neg Negative pH UA 5.0 5.0 - 8.0 pH units Blood UA neg Negtive Specific [place] UA POCT 1.020 1.002 - 1.030 Ketone UA neg Negative Bilirubin UA POCT neg Negative Glucose UA neg Negative Urine specimen (specimen) URINE / Unknown Gab Lamar MD LAB - POINT OF CARE ORDERABLES * (ABNORMAL) GENERAL HEALTH PANEL (12/21/2008 8:15 AM CDT) Chemistries [facility] INSURANCE BILL Glucose 93 65 - 99 mg/dL [facility] INSURANCE BILL BUN 18 5 - 26 mg/dL [facility] INSURANCE BILL Creatinine 1.11 0.76 - 1.27 mg/dL [facility] INSURANCE BILL eGFR by MDRD >59 >59 mL/min/1. 73 [facility] INSURANCE BILL eGFR by MDRD >59 >59 mL/min/1. 73 [facility] INSURANCE BILL Comment: Note: Persistent reduction for 3 months or more in an eGFR <60 mL/min/1.73 m2 defines CKD. Patients with eGFR values >/=60 mL/min/1.73 m2 may [...] AM CDT Additional Result Information HEMATOLOGY COMMENTS: BLOOD,URINE ([facility]): RESULT NOT AVAILABLE Resulting Agency Comment [facility] [address] [phone] Gab Lamar MD LAB - CHEMISTRY DEBRA [place]OT[place] Performing Organization Address City/State/[facility] Co de Phone Number [facility] INSURANCE BILL * PROSTATE SPECIFIC ANTIGEN SCREEN (12/21/2008 8:15 AM CDT) PSA 1.9 0.0 - 4.0 ng/mL [facility] INSURANCE BILL Comment: Carlos ECLIA methodology. . According to the [place] [employer], PSA should be undetectable after [...] 10:44 PM CDT Narrative Resulting Agency Comment [address] [phone] Gab Lamar MD LAB - CHEMISTRY DEBRA [place]OT[place] Performing Organization Address [facility] de Phone Number [facility] INSURANCE BILL * [...] 10:44 PM CDT Narrative Resulting Agency Comment [place] [id number] [facility] [phone] Gab Lamar MD LAB - CHEMISTRY DEBRA WOOTEN Performing Organization Address [facility] Co de Phone Number [facility] INSURANCE BILL Care Teams Information Systems Security Specialist Relationship Specialty Start Date End Date Allan Shields DO [address] [facility] [address] [place] [address] [facility] - General 02/24/18
--- OUTSIDE RECORDS SUMMARY | 2024-11-23 13:32 | XMS_ITS | Referral Summary ---
Author Organization [facility] Address [address] [place] [address] Care Team Providers Care Chiropractic Teacher Name Role Phone Andreas Farr Primary Care Provider [phone] Encounters Date Type Department Care Team Description 10/15/2024 Orders Only [facility] Scanning, Provider 10/08/2024 9:00 AM SOFTWARE VALIDATION ENGINEER Office Visit [facility] Pulmonary [address] [place] [phone] María Ponce NP ANGEL (obstructive sleep apnea) (Primary Dx) 10/01/2024 Orders Only [facility] Scanning, Provider 09/25/[address] [facility] [place] [address] [place] [address] Annie Tafoya 09/25/2024 Telephone [facility] Cardiology [address] [place] [address] [facility] [place] [address] [place] [address] Daniel Cohen MD 09/15/2024 Telephone [facility] Cardiology [facility] [place] [address] [place] [address] Daniel Coehn MD BP readings from Last 3 Months Allergies No known active allergies Medications glucosamine-cho ndroitin 500-400 mg capsule Take 2 capsules by mouth daily Active primidone (MYSOLINE) 50 mg tablet Take 2 tablets (100 mg total) by mouth nightly Active cetirizine (ZyrTEC) 10 mg tablet Take 1 tablet (10 mg total) by mouth daily Active DULoxetine DR (CYMBALTA) 30 mg capsule Take 1 capsule (30 mg total) by mouth daily 4 Active inulin-chromium picolinate 2-100 gram-mcg tablet,chewable Take by mouth Active lisinopriL (PRINIVIL,ZESTR IL) 40 mg tablet TAKE 1 TABLET(40 MG) BY MOUTH DAILY 90 tablet 3 4 Active hydroxychloroqu ine (PLAQUENIL) 200 mg tablet Take 1 tablet (200 mg total) by mouth 2 (two) times a day 4 Active amLODIPine (NORVASC) 10 mg tablet Take 1 tablet (10 mg total) by mouth daily 30 tablet 11 4 Active chlorthalidone (HYGROTON) 25 mg tablet Take 1 tablet (25 mg total) by mouth daily 30 tablet 11 4 Active atorvastatin (LIPITOR) 20 mg tablet TAKE 1 TABLET(20 MG) BY MOUTH DAILY 90 tablet 3 4 Active atorvastatin (LIPITOR) 20 mg tablet TAKE 1 TABLET(20 MG) BY MOUTH DAILY 90 tablet 3 4 Active Additional Information Patient not taking.Reported on 10/08/2024 Active Problems Problem Noted Date Diagnosed Date Anemia 04/16/2024 Assessment & Plan (04/16/2024 12:26 PM CDT): Labs from November 2023 with a hemoglobin of 10.6. Patient denies any overt GI bleeding. -schedule EGD -The risks (risks of bleeding, infection, perforation requiring surgery, missed polyps/cancer, dental injury, aspiration pneumonia, anesthesia complications such as drug reaction and cardiopulmonary complications including rare chance of ), benefits, and alternatives of the planned procedure were explained to the patient who understands and consents to having procedure done. Dyspnea on exertion 12/13/2023 Assessment & Plan (12/13/2023 2:36 PM SOFTWARE VALIDATION ENGINEER): Reporting increased VICKERS and significant fatigue after exertional activities that has progressively gotten worse. Has recently had pneumonia but patient reports this was starting prior to his pneumonia diagnosis. Euvolemic upon examination. Could be anginal equivalent. Heart rate low today in clinic. Will proceed with stress echo for further evaluation. Will stop carvedilol given low heart rate as this may be contributing to symptoms. Community acquired pneumonia 11/25/2023 General weakness 11/24/2023 Diarrhea 11/24/2023 Assessment & Plan (04/16/2024 12:26 PM CDT): Chronic diarrhea since a trip to [place] November 2023. Stool culture and C diff were negative November 2023. Patient was having 6-10 bowel movements per day. Saw Dr. Camacho, colonoscopy completed 12/2023, per patient had diverticulosis, biopsies were normal (no records available for review). Patient was started on cholestyramine 4gm po bid and dicyclomine bid. Diarrhea has improved, still has soft stool, 1 BM/day. -continue cholestyramine 4 g p.o. b.i.d. -recommend starting homj-nnu-jnouceb probiotics daily -we will order labs and stool studies - celiac disease panel, TSH, Cryptosporidium Giardia, fecal lactoferrin, fecal elastase -obtain prior colonoscopy records Acute kidney injury superimposed on chronic kidn ey disease 11/24/2023 Pneumonia of left lower lobe due to infectious o rganism 11/24/2023 Dyslipidemia 06/14/2023 Assessment & Plan (03/09/2024 11:50 AM CDT): Continue Atorvastatin 20 mg daily and triglide 160 mg daily. Repeat FLP. Assessment & Plan (06/14/2023 2:26 PM CDT): FLP today. Continue Atorvastatin 20 mg daily and triglide 160 mg daily. Chronic cough 03/15/2021 Assessment & Plan (03/19/2021 11:35 AM CDT): Cough with postnasal drip is likely due to rhinosinusitis. Obtain IgE level. Use Flonase as needed. Shortness of breath 03/15/2021 Assessment & Plan (03/19/2021 11:35 AM CDT): Chest x-ray findings are more suggestive of CHF than primary lung problem. He follows with Cardiology at [facility]. I will obtain BNP. Continue his antihypertensive medications. Obtain two views of chest x-ray and PFTs. Ascending aorta dilation (CMS/HCC) 01/30/2017 Overview (03/11/2018): Chest CT 12/18/16 with 4.1 cm ascending aortic aneurysm Assessment & Plan (03/09/2024 11:48 AM CDT): Chest CT in 2017 measuring at 4.1 cm. T TTE from 2022 measuring aortic root at 4.1 and unchanged. Continue good blood pressure and heart rate control. Continue statin therapy. Assessment & Plan (12/13/2023 2:27 PM SOFTWARE VALIDATION ENGINEER): Chest CT in 2017 measuring at 4.1 cm. TTE from 2018 measuring 4.3 cm. TTE from 2022 measuring aortic root at 4.1 and unchanged. Continue good blood pressure and heart rate control. Continue statin therapy. Assessment & Plan (06/14/2023 2:22 PM CDT): Chest CT in 2017 measuring at 4.1 cm. TTE from 2019 measuring 4.3 cm. Continue good blood pressure and heart rate control. Continue statin therapy. Repeat TTE at his convenience to reassess. Assessment & Plan (03/12/2018 2:56 PM CDT): Last TTE showed this was stable at 4.3 cm (at So[facility]) - we will repeat a TTE to reassess. So far he has not met indications for surgery (greater than 5.5 cm, growth >0.5 cm per year) - continue beta ania with metoprolol-XL Essential hypertension 01/30/2017 Assessment & Plan (03/09/2024 11:47 AM CDT): Blood pressure well controlled today. Continue Lisinopril and amlodipine at current doses. Of note, Beta blockers stopped due to bradycardia and fatigue. Assessment & Plan (12/13/2023 2:40 PM SOFTWARE VALIDATION ENGINEER): Hypertension with recent hypotension following pneumonia. Has since been holding his amlodipine and taking carvedilol and lisinopril. Blood pressure well controlled today in clinic. Heart rate low and complaining of increased fatigue. Home blood pressure kit compared to ours and running about 10-20 mmHg higher. Stop carvedilol given bradycardia and assess for improvement in fatigue. Continue Lisinopril. Start back on Amlodipine at 2.5 mg daily given we are stopping his carvedilol. Can increase to 5 mg daily if BP consistently >130/>80. Keep BP diary and return for review in 2 weeks. Consider new blood pressure kit. Assessment & Plan (06/14/2023 2:24 PM CDT): Low normal readings today. States they have been on the low side at home too. Is asymptomatic. In September of 2022 his indapamide was decreased due to increased Cr level and concern for dehydration. Repeat BMP. Continue current medication regimen. Bsed off lab results will consider holding indapamide or amlodipine. Keep BP diary and return in 2 weeks. Continue other medications. Assessment & Plan (03/12/2018 2:57 PM CDT): Hypertension is well controlled today. - continue current regimen of lisinopril and metoprolol-XL. - we will check a BMP since he is on an ACEi We will see him back in clinic in 1 year. Neuropathy 01/10/2016 Essential tremor 11/15/2015 Aortic regurgitation 12/20/2014 Aortic atherosclerosis 06/04/2013 Erectile dysfunction 06/04/2013 Abnormal echocardiogram 03/27/2013 NAFLD (nonalcoholic fatty liver disease) 013 Overview (04/14/2021): Repeat us stable 02/17 Depressive disorder, not elsewhere classified Obesity, unspecified 08/07/2010 Essential hypertension, benign 03/24/2010 ANGEL (obstructive sleep apnea) Assessment & Plan (10/08/2024 9:27 AM SOFTWARE VALIDATION ENGINEER): The patient continue to wear his CPAP at 10 cm water pressure while sleeping. His DME is [facility] Assessment & Plan (10/08/2023 10:57 AM SOFTWARE VALIDATION ENGINEER): Patient will continue CPAP therapy at 10 cm water pressure. DME [facility] Assessment & Plan (08/14/2022 11:32 AM SOFTWARE VALIDATION ENGINEER): Patient will continue CPAP therapy at 10 cm water pressure. I have ordered the patient a new SD card set at 10 cm water pressure. DME [facility] Assessment & Plan (07/31/2021 9:28 AM CDT): The patient continue to use his CPAP at 10 cm water pressure while sleeping. The patient was made aware of the recall and we did register his machine. The patient states he is using the so clean rug cleaner. The patient was recommended to inspect his CPAP for any dark particles. Patient's DME is [facility]. Assessment & Plan (04/27/2021 9:04 AM CDT): The patient continues to benefit from CPAP at 10 cm water pressure. His DME is [facility]. I will order a new CPAP unit for him with a heated humidifier since his current unit has been recalled and is malfunctioning. He should follow-up here in 3 months. Assessment & Plan (03/19/2021 11:35 AM CDT): Continue with CPAP at night. Immunizations Immunization Administration Dates Next Due Influenza, Quadrivalent, Hig h Dose, Preservative Free, Intrr 06/17/2020 Influenza, Quadrivalent, Spl it, Intramuscular 09/12/2015 Influenza, Trivalent, High D ose, Split, Preservative Free, Intramuscular 07/01/2019 Influenza, Trivalent, IM (MDV) 3,07/02/2012,08/09/2011,08/07 Influenza, Unspecified 09/05/2023,10/06/2009 Pneumococcal Conjugate PCV 13 09/12/2015 Pneumococcal Conjugate, Unspecified 08/07/2010 Pneumococcal Polysaccharide PPV23 06/17/2020,10/2009 Tdap 08/09/2011 ZOSTER LIVE 09/01/2013 Social History Tobacco Use Types Packs/Day Years Used Date Smoking Tobacco: Never Smokeless Tobacco: Never Tobacco Cessation:Counseling Given: Not Answered [facility] Utilities Answer Date Recorded In the past 12 months has e [employer], [employer], or [employer] threatened to shut off services in your home? No 11/25/2023 Social Connection and Isolat ion Panel [NHANES] Answer Date Recorded In a typical week, how many times do you talk on the phone with family, friends, or neighbors? More than three times a week 11/25/2023 How often do you get togethe r with friends or relatives? More than three times a week 11/25/2023 How often do you attend chur ch or taoist services? Never 11/25/2023 Do you belong to any clubs o r organizations such as mandaen groups, unions, fraternal or athletic groups, or school groups? No 11/25/2023 How often do you attend meet ings of the clubs or organizations you belong to? Never 11/25/2023 Are you , , di vorced, , never , or living with a partner? 11/25/2023 AUDIT-C Answer Date Recorded Q1: How often do you have a drink containing alc ohol? Monthly or less 05/28/2024 Q2: How many drinks containi ng alcohol do you have on a typical day when you are drinking? 1 or 2 05/28/2024 Q3: How often do you have si x or more drinks on one occasion? Never 05/28/2024 Overall Financial Resource Strain (CARDIA) Answe r Date Recorded How hard is it for you to pa y for the very basics like food, housing, medical care, and heating? Not hard at all 11/25/2023 Hunger Vital Sign Answer Date Recorded Within the past 12 months, y ou worried that your food would run out before you got the money to buy more. Never true 11/25/19 24 Within the past 12 months, t he food you bought just didn't last and you didn't have money to get more. Never true 11/25/2023 PRAPARE - Transportation Answer Date Re corded In the past 12 months, has l ack of transportation kept you from medical appointments or from getting medications? No 11/07 In the past 12 months, has l ack of transportation kept you from meetings, work, or from getting things needed for daily living? No 11/25/2023 Housing Stability Vital Sign Answer Manas e Recorded In the last 12 months, was t here a time when you were not able to pay the mortgage or rent on time? No 11/25/2023 In the last 12 months, how many places have you lived? 1 11/25/2023 Unstable Housing in the Last Year Not on file 11/25/2023 Personal Safety Answer Date Recorded Have you ever been in or are you currently in a harmful physical or emotional relationship or is someone making you feel afraid or unsafe? Denies 06/10/2024 Sex and Gender Information Value Date Recorded Sex Assigned at Not on file Legal Sex Male 1:43 AM SOFTWARE VALIDATION ENGINEER Gender Identity Not on file Sexual Orientation Not on file Last Filed Vital Signs Vital Sign Reading Time Taken Comments Blood Pressure 112/70 10/08/2024 8:35 AM SOFTWARE VALIDATION ENGINEER Pulse 65 10/08/2024 8:35 AM SOFTWARE VALIDATION ENGINEER Temperature 36.4 C (97.5 F) 10/08/2024 8:35 AM SOFTWARE VALIDATION ENGINEER Respiratory Rate 18 10/08/2024 8:35 AM SOFTWARE VALIDATION ENGINEER Oxygen Saturation 99% 10/08/2024 8:35 AM SOFTWARE VALIDATION ENGINEER Inhaled Oxygen Concentration - - Weight 108 kg (238 lb) 10/08/2024 8:35 AM SOFTWARE VALIDATION ENGINEER Height 174 cm (5' 8.5 ) 10/08/2024 8:35 AM SOFTWARE VALIDATION ENGINEER Body Mass Index 35.66 10/08/2024 8:35 AM SOFTWARE VALIDATION ENGINEER Plan of Treatment Not on file Procedures Procedure Name Priority Date/Time Associated Diagnosis Comments SCAN - LABS 10/15/2024 SCAN - LABS 10/01/2024 from Last 3 Months Results * SCAN - LABS (10/15/2024) us Provider Scanning Final Result * SCAN - LABS (10/01/2024) us Provider Scanning Edited Result - Final from Last 3 Months Additional Health Concerns Infection Onset Date Last Indicated C. difficile 05/01/2024 05/01/2024 Insurance MEDICARE [facility] MEDICARE [facility] Member Subscriber Plan / Payer (Ef fective 2017-Present) Name:Aj Sosa Relation to Subscriber:Self Name:Aj Sosa Payer ID:[id number] Group ID:Not on file Type:COMMERCIAL Address: [facility] [address] [place] [address] [place] [address] [address] [address] [place] [address] [facility] Advance Directives For more information, please contact: [phone] * Full Code (Latest Code Status on File) Date Activated Date Inactivated Comments 11/25/2023 12:11 AM 11/26/2023 5:35 PM Care Teams Chiropractic Teacher Relationship Specialty Start Date End Date Andreas Farr DO PCP - General Internal Medicine 02/26/24
--- OUTSIDE RECORDS SUMMARY | 2024-11-23 13:32 | XMS_ITS | Encounter Summary ---
Author Organization [facility] Address [address] [place] [address] Care Team Providers Care Head Turning Machine Operator Name Role Phone Boy Urbano MD Primary Care Provider + Encounter Details Date Type Department Care Team (Late st Contact Info) Description 08/26/2006 Outpatient [facility] [address] [place] [address]. [place] [address] Edwin Garcia MD Social History Tobacco Use Types Packs/Day Years Used Date Smoking Tobacco: Never Assessed Sex and Gender Information Value Date Recorded Sex Assigned at Not on file Legal Sex Male 4:42 AM SAFETY ENGINEER Gender Identity Not on file Sexual Orientation Not on file documented as of this encounter Plan of Treatment Not on file documented as of this encounter Visit Diagnoses Not on filedocumented in this encounter Care Teams Head Turning Machine Operator Relationship Specialty Start Date End Date Boy Urbano MD [address] [place] [phone] PCP - General 12/04/12 10/07/18 documented as of this encounter
--- OUTSIDE RECORDS SUMMARY | 2024-11-23 13:32 | XMS_ITS | Clinical Summary ---
Author Organization [facility] Address [address], [place] [address] Phone Care Team Providers Care Push Button Switch Assembler Name Role Phone Unavailable Primary Care Provider [...] Comments Blood Pressure 136/72 08/14/2017 12:01 AM OIL WELL DRILLING MANAGER Sitting, Right Pulse - - Temperature 35.9 C (96.7 F) 08/14/2017 12:01 AM OIL WELL DRILLING MANAGER Respiratory Rate - - Oxygen Saturation - - Inhaled Oxygen Concentration - - Weight 108 kg (238 lb) 08/14/2017 12:01 AM OIL WELL DRILLING MANAGER Height 175.3 cm (5' 9 ) 08/14/2017 12:0 1 AM OIL WELL DRILLING MANAGER Body Mass Index 35.15 08/14/2017 12:01 AM OIL WELL DRILLING MANAGER Plan of Treatment Not on file
--- OUTSIDE RECORDS SUMMARY | 2024-11-23 13:32 | XMS_ITS | Clinical Summary ---
Author Organization [facility] Address [address] [place] [address] Care Team Providers Care Roll Forming Machine Set Up Operator Name Role Phone Unavailable Primary Care Provider Unavailabl e Allergies No known active allergies Medications Multivitamin Oral Cap take 1 capsule by oral route every day Active sildenafil (VIAGRA) 50 mg Oral tablet Take 1 Tab by mouth 1 time daily as needed for Other (See Comment) (take 30 mins prior to intercourse prn). 20 Tab 0 07/09/20 13 Active glucosamine-barry droitin (ARTHX DS) 500-400 mg Capsule Take 2 Caps by mouth . Active PSYLLIUM SEED, WITH DEXTROSE, (FIBER ORAL)Indications :Thrombocytopeni a, unspecified Take by mouth daily 2 chews daily . Active GLYCERIN/WITCH HILLARY LEAF (HEMORRHOID TOPICAL)Indicati ons:Thrombocytop enia, unspecified Apply to affected area. Active saliva substitution combo no.9 (BIOTENE DRY MOUTH ORAL RINSE) MouthwashIndicat ions:twice daily as needed Take by mouth see administration instructions. Active gabapentin (NEURONTIN) 300 mg capsule TAKE 1 CAPSULE(300 MG) BY MOUTH EVERY EVENING NEEDED FOR PAIN 90 Capsule 1 01/10/20 16 Active lisinopril-hydro CHLOROthiazide (ZESTORETIC) 10-12.5 mg tablet Take 1 tablet by mouth daily. 90 Tablet 1 06/22/20 16 Active CPAP / BIPAP supplies Length of need: 99 months Mask Type: nasal with headgear every 6 months, mask only every 3 months,2 cushions per month. Tubing: non heated 1 every 3 months, water chamber 1 every 6 months, chin strap 1 every 6 months, filters disposable 2 per month, filters reusable 1 per 6 months.. 1 Each 0 07/03/20 16 Active Active Problems Patient Care Coordination No te Formatting of this note migh t be different from the original. Human Factors Scientist-Dr. Demetrio Parekh ([place]) Problem Noted Date Diagnosed Date Neuropathy 01/10/2016 Essential tremor 11/15/2015 Benign liver cyst 02/15/2015 NAFLD (nonalcoholic fatty liver disease) 015 Ascending aorta dilation 12/20/2014 Aortic regurgitation 12/20/2014 Thrombocytopenia, unspecified 12/15/2014 ANGEL (obstructive sleep apnea) 08/10/2013 Aortic atherosclerosis 06/04/2013 Erectile dysfunction 06/04/2013 Fatty liver- with cyst- f/u with gi and us 11/2003/27/2013 Overview (02/25/2014): Repeat us stable 02/17 Abnormal echocardiogram- dil ated ascending aorta 3.8 cm 07/19.. 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 03/27/2013 Hypertrophy of prostate with out urinary obstruction and other lower urinary tract symptoms (LUTS) 11/14/2011 03/27/2013 Insomnia, unspecified 11/14/20112012 Obstructive sleep apnea (adult) (pediatric) 08/09/2011 02/25/2014 Other and unspecified hyperlipidemia 08/07/2010 11/18/2014 Immunizations Immunization Administration Dates Next Due (ADACEL/BOOSTRIX)(10 YR UP) TDAP VACCINE, 0.5ML, IM 08/09/2011 (PREVNAR 13)(6 WKS UP) PNEUM OCOCCAL CONJUGATE (PCV13) 0.5 ML, IM 09/12/2015 Influenza Seasonal Unspecifi ed Formulation IM 09/01/2013,07/02/2012,08/09/2011 Influenza Vaccine Quad Split 3+ Yrs Im 5 Pneumococcal conjugate, unsp ecified formulation 08/07/2010 Zoster Vaccine Live SQ 09/01/2013 Family History Medical History Relation Name Comments Healthy Daughter Heart Disease Father Other Father tremor Healthy Mother Other Mother dementia Healthy Sister 1 Other Sister 1 tremor Healthy Sister 2 Healthy Sister 3 Healthy Son 1 Healthy Son 2 Relation Name Status Comments Daughter Alive Father Mother Alive Sister 1 Alive Sister 2 Alive Sister 3 Alive Son 1 Alive Son 2 Alive Social History Tobacco Use Types Packs/Day Years Used Date Smoking Tobacco: Never Smokeless Tobacco: Never Tobacco Cessation:Counseling Given: No Alcohol Use Standard Drinks/Week Comments Yes 0 (1 standard drink = 0.6 oz pur e alcohol) occ Sex and Gender Information Value Date Recorded Sex Assigned at Not on file Legal Sex Male 4:42 AM POLICE CHIEF DEPUTY Gender Identity Not on file Sexual Orientation Not on file Occupation Industry Job Start Date Job End Date Not on file Not on file Not on file Not on file Last Filed Vital Signs Vital Sign Reading Time Taken Comments Blood Pressure 106/72 01/10/2016 7:06 AM CDT Pulse 80 01/10/2016 7:06 AM CDT Temperature 37.1 C (98.7 F) 03/23/2015 2:46 PM CDT Respiratory Rate 18 01/10/2016 7:06 AM CDT Oxygen Saturation 96% 03/23/2015 2:46 PM CDT Inhaled Oxygen Concentration - - Weight 109.3 kg (241 lb) 01/10/2016 7:06 AM CDT Height 175.3 cm (5' 9 ) 01/10/2016 7:06 AM CDT Body Mass Index 35.59 01/10/2016 7:06 AM CDT Plan of Treatment Health Maintenance Due Date Last Done Comments FIT-DNA Q 3 years 1995 Flex Sig/CT Colonography Q 5 years 1995 RSV VACCINE (60+ or ) (1 - Risk 60-74 years 1-dose series) 2010 ZOSTER VACCINE (2 of 3) 10/27/2013 09/01/2013 FIT/FOBT Q 1 year 06/04/2014 06/04/2013 PNEUMOCOCCAL VACCINE 65+ YEA RS (2 of 2 - PPSV23) 09/12/2016 09/12/2015, 08/07/2010 COLORECTAL SCREENING 08/02/2020 08/02/2010, 08/02/20 10 Colorectal Cancer Screening 08/02/2020 DTAP/TDAP/TD VACCINES (2 - T d or Tdap) 08/09/2021 08/09/2011 INFLUENZA VACCINE (#1) 2024 5, 09/01/2013, 07/02/2012, Additional history exists Procedures Procedure Name Priority Date/Time Associated Diagnosis Comments POC OCCULT BLOOD 1 CARD Routine 06/04/2013 7:49 AM CDT Well adult exam Screen for colon cancer ENDOSCOPY, COLON, SCREENING Routine 08/02/2010 from Last 3 Months or Most Recently Relevant to Health Maintenance Results * POC OCCULT BLOOD 1 CARD (06/04/2013 7:49 AM CDT) OCCULT BLOOD #1 Negative Negative [facility] Stool specimen (specimen) 06/04/2013 7:49 AM CDT us Boy Urbano MD POINT OF CARE TESTING Fi nal Result [facility] * ENDOSCOPY, COLON, SCREENING (08/02/2010) us Ced Tran MD GI PROCEDURE ORDERABLES Final R esult [facility] from Last 3 Months or Most Recently Relevant to Health Maintenance Insurance [facility] [id number]
--- OUTSIDE RECORDS SUMMARY | 2024-11-23 13:32 | XMS_ITS | Clinical Summary ---
Author Organization [facility] Address [address] [place] [address] Care Team Providers Care Event Sales Manager Name Role Phone ChikaAndreas Primary Care Provider [phone] Allergies No known active allergies Medications glucosamine-cho ndroitin 500-400 mg capsule Take 2 capsules by mouth daily Active primidone (MYSOLINE) 50 mg tablet Take 2 tablets (100 mg total) by mouth nightly 1 Active cetirizine (ZyrTEC) 10 mg tablet Take [...] MG) BY MOUTH DAILY 90 tablet 3 Active Additional Information Patient not taking.Reported on [...] 12/13/2023 Assessment & Plan (12/13/2023 2:36 PM STEM PROCESSING MACHINE OPERATOR): Reporting increased VICKERS and significant fatigue after [...] CDT): Chronic diarrhea since a trip to [place] November 2023. Stool culture and C diff [...] cholestyramine 4 g p.o. b.i.d. -recommend starting ztde-bsw-lthggpi probiotics daily -we will order labs and [...] lung problem. He follows with Cardiology at [facility]. I will obtain BNP. Continue his antihypertensive [...] therapy. Assessment & Plan (12/13/2023 2:27 PM STEM PROCESSING MACHINE OPERATOR): Chest CT in 2017 measuring at 4.1 [...] fatigue. Assessment & Plan (12/13/2023 2:40 PM STEM PROCESSING MACHINE OPERATOR): Hypertension with recent hypotension following pneumonia. Has [...] apnea) Assessment & Plan (10/08/2024 9:27 AM STEM PROCESSING MACHINE OPERATOR): The patient continue to wear his CPAP at 10 cm water pressure while sleeping. His DME is [facility] Assessment & Plan (10/08/2023 10:57 AM STEM PROCESSING MACHINE OPERATOR): Patient will continue CPAP therapy at 10 cm water pressure. DME [facility] Assessment & Plan (08/14/2022 11:32 AM STEM PROCESSING MACHINE OPERATOR): Patient will continue CPAP therapy at 10 [...] states he is using the so clean beer coil cleaner. The patient was recommended to inspect [...] AM CDT): Continue with CPAP at night. Encounters Date Type Department Care Team Description 10/15/2024 Orders Only [facility] Scanning, Provider 10/08/2024 9:00 AM STEM PROCESSING MACHINE OPERATOR Office Visit [facility] Pul[facility] [address] [place] [phone] María Ponce NP ANGEL (obstructive sleep apnea) (Primary Dx) 10/01/2024 Orders Only [facility] Scanning, Provider 09/25/2024 Telephone [facility] Cardiology [facility] Advanced Medicine 8th [place] [address] [place] [address] Annie Tafoya 09/25/2024 Telephone [facility] Cardiology [facility] [address] [place] [address] [place] [address] Daniel Cohen MD 09/15/2024 Telephone [facility] Cardiology [facility] [address] [place] [address] [place] [address] Daniel Cohen MD BP readings from Last 3 Months Immunizations Immunization Administration Dates Next Due Influenza, Quadrivalent, Hig h Dose, Preservative Free, Intrr 06/17/2020 Influenza, Quadrivalent, Spl it, Intramuscular 09/12/2015 Influenza, Trivalent, High D ose, Split, Preservative Free, Intramuscular 07/01/2019 Influenza, Trivalent, IM (MDV) 3,07/02/2012,08/09/2011,08/07 Influenza, Unspecified 09/05/2023,10/06/2009 Pneumococcal Conjugate PCV 13 09/12/2015 Pneumococcal Conjugate, Unspecified 08/07/2010 Pneumococcal Polysaccharide PPV23 06/17/2020,10/2009 Tdap 08/09/2011 ZOSTER LIVE 09/01/2013 Surgical History Surgery Date Site/Laterality Comments ROTATOR CUFF REPAIR Right 10 years ago HERNIA REPAIR 10/07/2015 - 10/06/2016 @ [facility] PENILE PROSTHESIS IMPLANT 10/07/2015 - 10/06/2016 @ [facility] COLONOSCOPY 10/07/2023 - 10/06/2024 Medical History Medical History Date Comments Thoracic aortic dilation Hypertension Erectile dysfunction Nonalcoholic fatty liver disease Obstructive sleep apnea Hyperlipidemia Neuropathy (CMS/HCC) Depression Arthritis Ascending aorta dilation (CMS/HCC) (HCC) Family History Medical History Relation Name Comments Heart failure Father Family history of congestive heart failure - (Added by TW Anastasia) Relation Name Status Comments Father Social History Tobacco Use Types Packs/Day Years Used Date Smoking Tobacco: Never Smokeless Tobacco: Never Tobacco Cessation:Counseling Given: Not Answered [facility] Utilities Answer Date Recorded In the past 12 months has th e [employer], gas, oil, or water [employer] threatened to shut off services in your [...] often do you attend chur ch or sabianism services? Never 11/25/2023 Do you belong to any clubs o r organizations such as adventist groups, unions, fraternal or athletic groups, or [...] the money to buy more. Never true 02/19/20 24 Within the past 12 months, t [...] on file Legal Sex Male 1:43 AM STEM PROCESSING MACHINE OPERATOR Gender Identity Not on file Sexual Orientation Not on file Obstetrics History Last Filed Vital Signs Vital Sign Reading Time Taken Comments Blood Pressure 112/70 10/08/2024 8:35 AM STEM PROCESSING MACHINE OPERATOR Pulse 65 10/08/2024 8:35 AM STEM PROCESSING MACHINE OPERATOR Temperature 36.4 C (97.5 F) 10/08/2024 8:35 AM STEM PROCESSING MACHINE OPERATOR Respiratory Rate 18 10/08/2024 8:35 AM STEM PROCESSING MACHINE OPERATOR Oxygen Saturation 99% 10/08/2024 8:35 AM STEM PROCESSING MACHINE OPERATOR Inhaled Oxygen Concentration - - Weight 108 kg (238 lb) 10/08/2024 8:35 AM STEM PROCESSING MACHINE OPERATOR Height 174 cm (5' 8.5 ) 10/08/2024 8:35 AM STEM PROCESSING MACHINE OPERATOR Body Mass Index 35.66 10/08/2024 8:35 AM STEM PROCESSING MACHINE OPERATOR Plan of Treatment Health Maintenance Due Date Last Done Comments Colon Cancer Screening-Colonoscopy 1950 Depression Screening 1950 Hepatitis C Screening 1950 Hepatitis B Screening 1968 Zoster Vaccine (1 of 2) 10/27/2013 09/01/2013 Well Visit 65+ 2015 DTaP/Tdap/Td Vaccine (2 - Td or Tdap) 08/09/2021 08/09/2011 Influenza Vaccine (#1) 2024 3, 06/17/2020, 07/01/2019, Additional history exists Fall Risk Assessment 11/26/2024 11/26/2023 Pneumococcal vaccine 65+ Completed 020, 09/12/2015, 08/07/2010, Additional history exists Procedures Procedure Name Priority [...] Indicated C. difficile 05/01/2024 05/01/2024 Insurance MEDICARE [facility] MEDICARE [facility] MEDICARE AARP Advance Directives For more information, please contact: [phone] * Full Code (Latest Code Status on File) Date Activated Date Inactivated Comments 11/25/2023 12:11 AM 11/26/2023 5:35 PM Care Teams Event Sales Manager Relationship Specialty Start Date End Date Andreas Farr DO PCP - General Internal Medicine 02/26/24
--- OUTSIDE RECORDS SUMMARY | 2024-11-23 13:32 | XMS_ITS | Clinical Summary ---
Author Organization [facility] Address [address] [facility] [place] [address] Care Team Providers Care Human Resources Project Manager Name Role Phone Allan Shields DO Primary Care Provider [phone] Source Comments [facility],non-owned Affiliates and Associated Physician Practices is amultiple site organization consisting of ambulatory clinics and hospital sitesin [place], [place], [place] and [place]. This disclosure is being madepursuant to the Care Everywhere program and may not contain all information available regarding this patient. Last updated 18.[employer] [facility] Allergies No known active allergies Medications * [...] Comments Blood Pressure 160/88 09/08/2009 1:27 PM DISTRIBUTION SPECIALIST Pulse 72 09/08/2009 1:27 PM DISTRIBUTION SPECIALIST Temperature - - Respiratory Rate - - Oxygen Saturation - - Inhaled Oxygen Concentration - - Weight 109.8 kg (242 lb) 09/08/2009 1:27 PM DISTRIBUTION SPECIALIST Height 174 cm (5' 8.5 ) 09/08/2009 1:27 PM DISTRIBUTION SPECIALIST Body Mass Index 36.26 09/08/2009 1:27 PM DISTRIBUTION SPECIALIST Plan of Treatment Health Maintenance Due Date [...] 2024 10/06/2009 DEPRESSION SCREENING 10/07/2024 MEDICARE AWV CALENDAR YEAR 2024 Respiratory Syncytial Virus (RSV) [...] PM CDT Narrative Resulting Agency Comment [facility] [place] [id number] [facility] [phone] Gab Lamar MD LAB - CHEMISTRY DEBRA WOOTEN [facility] INSURANCE BILL from Last 3 Months or Most Recently Relevant to Health Maintenance Care Teams Human Resources Project Manager Relationship Specialty Start Date End Date Allan Shields DO [address] [facility] [address] [place], [place] [phone] PCP - General 02/24/18
--- OUTSIDE RECORDS SUMMARY | 2024-11-23 13:32 | XMS_ITS | Encounter Summary ---
Author Organization [employer] Address [address] [place] [address] Care Team Providers Care City Editor Name Role Phone Boy Urbano MD Primary Care Provider + Encounter Details Date Type Department Care Team (Late st Contact Info) Description 09/11/2002 Outpatient [facility] [address] [place] [address] Cornell Resendez MD [address] [facility] [address] [place] [address] Social History Tobacco Use Types Packs/Day Years Used Date Smoking Tobacco: Never Assessed Sex and Gender Information Value Date Recorded Sex Assigned at Not on file Legal Sex Male 4:42 AM WASHROOM ATTENDANT Gender Identity Not on file Sexual Orientation Not on file documented as of this encounter Plan of Treatment Not on file documented as of this encounter Visit Diagnoses Not on filedocumented in this encounter Care Teams City Editor Relationship Specialty Start Date End Date Boy Urbano MD [address] [place] [phone] PCP - General 12/04/12 10/07/18 documented as of this encounter
--- OUTSIDE RECORDS SUMMARY | 2024-11-23 13:32 | XMS_ITS | Encounter Summary ---
Author Organization [employer] Address [address] [place] [address] Care Team Providers Care Aba Tutor Name Role Phone Boy Urbano MD Primary Care Provider + Encounter Details Date Type Department Care Team (Late st Contact Info) Description 09/13/2002 Outpatient [facility] [address] [place] [address] Social History Tobacco Use Types Packs/Day Years Used Date Smoking Tobacco: Never Assessed Sex and Gender Information Value Date Recorded Sex Assigned at Not on file Legal Sex Male 4:42 AM BLASTING GANG MINER Gender Identity Not on file Sexual Orientation Not on file documented as of this encounter Plan of Treatment Not on file documented as of this encounter Visit Diagnoses Not on filedocumented in this encounter Care Teams Aba Tutor Relationship Specialty Start Date End Date Boy Urbano MD [address] [place] [phone] PCP - General 12/04/12 10/07/18 documented as of this encounter
--- OUTSIDE RECORDS SUMMARY | 2024-11-23 13:32 | XMS_ITS | Encounter Summary ---
Author Organization [employer] Address [address] [place] [address] Care Team Providers Care Miner Helper Name Role Phone Boy Urbano MD Primary Care Provider + Encounter Details Date Type Department Care Team (Late st Contact Info) Description 03/24/2003 Outpatient [facility] [address] [place] [address]. [place] [address] Edwin Garcia MD Social History Tobacco Use Types Packs/Day Years Used Date Smoking Tobacco: Never Assessed Sex and Gender Information Value Date Recorded Sex Assigned at Not on file Legal Sex Male 4:42 AM WHEAT GROWER Gender Identity Not on file Sexual Orientation Not on file documented as of this encounter Plan of Treatment Not on file documented as of this encounter Visit Diagnoses Not on filedocumented in this encounter Care Teams Miner Helper Relationship Specialty Start Date End Date Boy Urbano MD [address] [place] [phone] PCP - General 12/04/12 10/07/18 documented as of this encounter
--- OUTSIDE RECORDS SUMMARY | 2024-11-23 13:32 | XMS_ITS | Encounter Summary ---
Author Organization [facility] Address [address] [place] [address] Care Team Providers Care Die Welder Name Role Phone Allan Shields DO Primary Care Provider [phone] Encounter Details Date Type Department Care Team (Late st Contact Info) Description 11/14/2021 Lab Requisition [facility] Care Pathology Lab [address] [place] [address] Keli Cota MD [address] [place], [place] [phone] Illness, unspecified Social History Tobacco Use Types [...] ON REFERRED CASE Routine 11/10/2021 1:01 PM PAINTER TOUCH UP Illness, unspecified documented in this encounter Results * PATH CONSULT ON REFERRED CASE (11/10/2021 1:01 PM PAINTER TOUCH UP) Final Diagnosis URINE, VOIDED, THIN PREP, CYTOLOGY (OSC: [id number]; 11/10/2021): - No malignant cells see (TPS Category II, negative for high grade urothelial carcinoma) 11/14/2021 4:04 PM PAINTER TOUCH UP [facility] Microscopic Description and Comment Performed. 11/14/2021 4:04 PM PAINTER TOUCH UP [facility] Clinical History FREQUENCY 11/14/2021 4:04 PM [facility] Materials Received Prepared slide received from [facility] [id number]. All material will be returned. 11/14/2021 4:04 PM [facility] Disclaimer The performance characteristics of all immunohistochemical and indirect immunofluorescence stains (if any) cited in this report were determined by the Histopathology Laboratory of [facility]. Some of these tests were developed by [...] the attending (teaching) pathologist. 11/14/2021 4:04 PM [facility] Case Report Surgical Pathology Report Case: [id number] Authorizing Provider: Keli Cota MD Collected: 11/10/2021 01:01 PM Ordering Location: [facility] Received: 11/14/2021 01:01 PM Pathologist: Gali Malik MD Specimen: Slide Consultation 11/14/2021 4:04 PM [facility] Embedded Images 11/14/2021 4:04 PM [facility] Pathology/Cytolo gy SURGICAL PATHOLOGY CONSULTATION AND REPORT ON REFERRED SLIDES PREPARED ELSEWHERE / Unknown 11/10/2021 1:01 PM PAINTER TOUCH UP 11/14/2021 1:01 PM PAINTER TOUCH UP Keli Cota MD LAB - PATHOLOGY/CYTO LOGY ORDERABLES [facility] [address] [phone] documented in this encounter Visit Diagnoses Diagnosis Illness, unspecified documented in this encounter Care Teams Die Welder Relationship Specialty Start Date End Date Allan Shields DO [address] [facility] [address] [facility] [address] [place] [address] PCP - General 02/24/18 documented as of this encounter
--- OUTSIDE RECORDS SUMMARY | 2024-11-23 13:32 | XMS_ITS | Encounter Summary ---
Author Organization [employer] Address [address] [place] [address] Care Team Providers Care Medical Records Field Technician Name Role Phone Boy Urbano MD Primary Care Provider + Encounter Details Date Type Department Care Team (Late st Contact Info) Description 10/21/2002 Outpatient [facility] [address] [place] [address]. [place] [address] Edwin Garcia MD Social History Tobacco Use Types Packs/Day Years Used Date Smoking Tobacco: Never Assessed Sex and Gender Information Value Date Recorded Sex Assigned at Not on file Legal Sex Male 4:42 AM WHIPPED TOPPING FINISHER Gender Identity Not on file Sexual Orientation Not on file documented as of this encounter Plan of Treatment Not on file documented as of this encounter Visit Diagnoses Not on filedocumented in this encounter Care Teams Medical Records Field Technician Relationship Specialty Start Date End Date Boy Urbano MD [address] [place] [phone] PCP - General 12/04/12 10/07/18 documented as of this encounter
--- OUTSIDE RECORDS SUMMARY | 2024-11-23 13:32 | XMS_ITS | Referral Summary ---
Author Organization [facility] Address [address] [facility] [place] [address] Care Team Providers Care Mud Temperer Name Role Phone Allan Shields DO Primary Care Provider Source Comments [facility],non-owned Affiliates and Associated Physician Practices is amultiple site organization consisting of ambulatory clinics and hospital sitesin [place], [place], [place] and [place]. This disclosure is being madepursuant to the Care Everywhere program and may not contain all information available regarding this patient. Last updated 18.[employer] [facility] Allergies No known active allergies Medications * [...] Comments Blood Pressure 160/88 09/08/2009 1:27 PM GLASS TECHNOLOGIST Pulse 72 09/08/2009 1:27 PM GLASS TECHNOLOGIST Temperature - - Respiratory Rate - - Oxygen Saturation - - Inhaled Oxygen Concentration - - Weight 109.8 kg (242 lb) 09/08/2009 1:27 PM GLASS TECHNOLOGIST Height 174 cm (5' 8.5 ) 09/08/2009 1:27 PM GLASS TECHNOLOGIST Body Mass Index 36.26 09/08/2009 1:27 PM GLASS TECHNOLOGIST Plan of Treatment Not on file Procedures [...] PM CDT Narrative Resulting Agency Comment [facility] [address] [phone] Gab Lamar MD LAB - CHEMISTRY DEBRA WOOTEN [facility] Organization Address City/State/ZIP Co de Phone Number [facility] INSURANCE BILL from Last 3 Months or Most Recently Relevant to Health Maintenance Care Teams Mud Temperer Relationship Specialty Start Date End Date Allan Shields DO [address] [facility] [address] [place] [address] PCP - General 02/24/18
--- OUTSIDE RECORDS SUMMARY | 2024-11-23 13:32 | XMS_ITS | Data Portability ---
Author Organization [place] - [facility], Main Office Address [address] [place] [address] Care Team Providers Care Stained Glass Glazier Helper Name Role Phone IMANI WELLS Primary Care Provider IMANI WELLS Referring Provider Assessment Encounter Date Assessment Date Assessment LastModified [...] well. He is going to start taking izcd-jug-raucqlo anti-inflammatori es, ibuprofen 600 mg b.i.d. until the injection works well for him. After that he can use it intermittently depending on symptoms and activities. He can repeat cortisone injections often as every 3 months. We will plan on seeing him back as needed. 20 minutes was spent treatment patient more than half of this in aejt-mp-lcap conversation Not available 04/18/2023 13:30:50 Plan of Treatment Reminders Order Date Submit Date Provider Last Modified By Organization Details Last Modified Time Details Appointments None recorded. Lab None recorded. Referral None recorded. Procedures injection/a spiration joint/bursa (PROC) 2022 023 [email or web address] In-Office Order, Internal Use Only DO Not Attach Compendium DO Not Attach Compendium, Do Not Delete/merge, [id number] 09:25:44 Surgeries None recorded. Imaging XR, knee 2022 023 [email or web address] 3 [facility], [facility], [place], [address], 13:45:37 Medication Orders bupivacaine HCl 0.5 % [...] XR, knee No observ ation record ed. [id number] [facility] [place] [address], [place], [address], 12/05/2022 20:58:20 04/18/20 23 XR, knee No observ ation record ed. [email or web address] [facility] [address], [place], [address], 04/18/2023 13:27:55 Result Notes None recorded. Problems Name Problem SNOMED Code Status Onset Date Resolution Date Notes Provider Name and Address Organization Details Recorded Time Pain of left knee joint [id number] Active 2022 Hina Sams, RMKal null, [place] [facility] 12:30:03 Problem Notes None recorded. Procedures Surgical History Date Name Laterality Status Provider Name and Address Organization Details Recorded Time hernia repair completed Not Available [facility] 12/05/2022 20:55:58 Rotator cuff surgery completed Not Available [facility] 12/05/2022 20:55:58 Imaging Results Imaging Date Name Status LastModified by Organiz ation Details LastModified Time 04/21/2021 XR, knee completed [id number] [facility] [address], [place], [address], 12/05/2022 20:58:20 04/18/2023 XR, knee completed [email or web address] [facility] [address], [place], [address], 04/18/2023 13:27:55 Procedure Notes None recorded. Medical [...] 2 mg by injection route. [address] [facility]: 0003- [id number]- [id number] Not Available Not Available [...] and Address Organization Details Last Updated DateTime 12/05/2022 35.2 kg/m2 170.18 cm 959052.28 g Not Available [facility] 12/05/2022 20:56:03 Social History Question Answer Notes LastModified by Organizat ion Details LastModified Time Tobacco Smoking Status Never Smoker PHYLLIS Vickers, [place] - [place] [facility] 04/18/2023 12:29:46 What Is Your Level Of Alcohol Consumption? None Information not available 04/18/2023 Sex: Unknown Functional Status None recorded. Mental Status None recorded. Family History Relationship Description Onset Age of this Age Resolved Age Notes LastModified by Organization Details LastModified Time Father Hypertensive disorder [id number] Not available 12/05/2022 20:55:58 Father Heart disease [email or web address] Not available 2022 12:29:37 Medical History Condition Response BLINDNESS N KIDNEY STONES N MRSA N CARPAL TUNNEL SYNDROME N LUNG DISEASE/DISORDER N HISTORY OF DRUG ABUSE N COPD N RADIATION / CHEMOTHERAPY N SPORTS INJURY N ANKLE PAIN N BLOOD DISEASES N SCHIZOPHRENIA N SHINGLES N BOWEL PROBLEMS N SHOULDER PAIN N DEPRESSION (INCLUDING POST ) N STROKE/TIA N KNEE PAIN N ULCERS N BENIGN PROSTATIC HYPERPLASIA N OBESITY N GERD/NAUSEA N ANEURYSM N URINARY/BLADDER/KIDNEY PROBLEMS N CORONARY ARTERY DISEASE (CAD) N ADDICTION CONCERNS N USE OF BLOOD THINNERS N SKIN PROBLEMS N EMPHYSEMA N MUSCLE,JOINT OR BONE PROBLEMS N DVT N STOMACH ULCERS N BLOOD CLOTS N USE OF NSAIDS N CONCUSSION OR SPINAL TRAUMA N NEUROPATHY N AIDS/HIV N FRACTURES N ELBOW PAIN N HYPERTENSION Y TOURETTE'S N ANXIETY DISORDER N Metal allergy N BLOOD TRANSFUSION N ANEMIA/BLOOD DISORDER N BIPOLAR DISORDER N BRONCHITIS N OSTEOARTHRITIS N TUBERCULOSIS N FOOT PROBLEM N HEART VALVE DISORDERS N ALLERGIES/HAYFEVER N SOFT TISSUE INJURY N INFECTIOUS DISEASE N HEART ARRHYTHMIA N INSOMNIA N RHEUMATOID ARTHRITIS N HIGH CHOLESTEROL / HYPERLIPIDEMIA N EDEMA N CHRONIC PAIN SYNDROME N CAROTID BLOCKAGE N BACK / NECK PROBLEMS N HAVE YOU BEEN HOSPITALIZED OR SEEN IN [facility] ER IN THE PAST YEAR ? N BURSITIS N HERNIATED DISC N DIALYSIS N FIBROMYALGIA N OSTEOPOROSIS N ARTHRITIS N NO SIGNIFICANT PAST MEDICAL HISTORY N PERIPHERAL NEUROPATHY N DIABETES, TYPE N HEARTBURN / REFLUX N HEPATITIS / LIVER DISEASE N GOUT N SLEEP DISORDER N ALZHEIMER'S DISEASE N HERPES N SEIZURES/EPILEPSY N HEADACHES/MIGRAINES N VASCULAR DISEASE N HIP PAIN N Blood Disorder N DIZZINESS N HEAD TRAUMA OR INJURY N HEART DISEASE/HEART PROBLEMS N MULTIPLE SCLEROSIS N CARDIAC ARRHYTHMIA N CANCER: SPECIFY N ANESTHESIA COMPLICATIONS N ATRIAL FIBRILLATION N AUTOIMMUNE DISEASE N Past Encounters Encounter ID Performer Location Encounter Start Date Encounter Closed Date Diagnosis/Indication Diagnosis SNOMED-CT Code Diagnosis ICD10 Code Diagnosis Note [id number] [facility] [address] [facility] [address] [place] [address] 04/21/2021 00:00:00 04/24/2021 14:08:09 [id number] KELTON West [facility] [address] [place] [address] 04/18/2023 11:49:55 04/18/2023 13:45:37 Pain of left knee joint 2307492526 63327 M25.562 Health Concerns Section Related Observation LastModified by Organization Detai ls LastModified Time None Recorded Concern Status LastModified by Organization Details LastModified Time None Recorded Advance Directives Directive None Recorded Payers Encounter Date Sequence Insurance Name Policy Number Policy Bass Covered Member ID Bass Member ID Guarantor Name 04/18/2023 1 [place] Aj Sosa [id number] Aj Sosa 04/18/2023 2 [employer] (MEDICARE SUPPLEMENT) Aj Sosa [id number] Aj Sosa
== END 2024-11-23 10:26 | disposition home or self-care (01) ==
PROVIDERS: PCP Internal Medicine; Visit Provider Orthopaedic Surgery
DX: M19.012 Primary osteoarthritis, left shoulder (principal)
CPT/HCPCS: 73030

== ENCOUNTER 2024-12-28 07:53 | Outpatient (CLI) | payer MEDICARE, OTHER, SELFPAY ==
--- NOTE | ~2024-12-28 | MR_ITS ---
EXAMINATION: MR shoulder LT wo con DATE: 12/28/2024 09:21 INDICATION: Impingement syndrome of left shoulder. TECHNIQUE: Magnetic resonance imaging (MRI) of the left shoulder was performed without intravenous co ntrast. Sequences included axial PD-weighted FS FSE, coronal oblique PD-weighted FS FSE and T2-weight ed FS FSE, and sagittal oblique T2-weighted FS FSE and T1-weighted FSE. COMPARISON: Left shoulder radiographs 11/23/2024 FINDINGS: Coracoacromial arch: The acromion undersurface is curved in morphology with anterior hook (type III). There is severe acro mioclavicular joint osteoarthritis including inferiorly directed osteophytes. There is moderate subac romial/subdeltoid bursitis. Rotator cuff: There is a full-thickness tear of supraspinatus and infraspinatus tendons measuring 4.0 cm anterior t o posterior by 3.7 cm proximal to distal. Teres minor tendon is normal. There is a partial tear of cid bscapularis tendon distally. There is mild fatty atrophy of supraspinatus and infraspinatus muscle be llies. Biceps tendon and glenoid labrum: Biceps tendon is in bicipital groove. There is a partial tear of biceps tendon. There is degenerative tearing of the glenoid labrum. Fluid: There is a moderate-sized glenohumeral joint effusion. Bones/cartilage: There is superior subluxation of humeral head with narrowing of the subacromial space. There is parti al-thickness cartilage loss of humeral head and glenoid. IMPRESSION: 1. Full-thickness rotator cuff tear. 2. Mild glenohumeral joint chondrosis. 3. Severe acromioclavicular joint osteoarthritis. 4. Partial tear of biceps tendon. 5. Moderate-sized glenohumeral joint effusion and moderate subacromial/subdeltoid bursitis. Reviewed, dictated and finalized at location A. IMPRESSION: 1. Full-thickness rotator cuff tear. 2. Mild glenohumeral joint chondrosis. 3. Severe acromioclavicular joint osteoarthritis. 4. Partial tear of biceps tendon. 5. Moderate-sized glenohumeral joint effusion and moderate subacromial/subdelto id bursitis.
--- OUTSIDE RECORDS SUMMARY | 2024-12-28 07:59 | XMS_ITS | Clinical Summary ---
Author Organization [facility] Luc[facility] everett Address [address], [place] [address] Phone Care Team Providers Care Chemical Process Equipment Operator Name Role Phone Unavailable Primary Care [...] Comments Blood Pressure 136/72 08/14/2017 12:01 AM DOCTOR NATUROPATHIC Sitting, Right Pulse - - Temperature 35.9 C (96.7 F) 08/14/2017 12:01 AM DOCTOR NATUROPATHIC Respiratory Rate - - Oxygen Saturation - - Inhaled Oxygen Concentration - - Weight 108 kg (238 lb) 08/14/2017 12:01 AM DOCTOR NATUROPATHIC Height 175.3 cm (5' 9 ) 08/14/2017 12:0 1 AM DOCTOR NATUROPATHIC Body Mass Index 35.15 08/14/2017 12:01 AM DOCTOR NATUROPATHIC Plan of Treatment Not on file
--- OUTSIDE RECORDS SUMMARY | 2024-12-28 07:59 | XMS_ITS | Data Portability ---
Author Organization [place] - [facility], Main Office Address [address] [place] [address] Care Team Providers Care Migratory Farm Hand Name Role Phone IMANI WELLS Primary Care [...] well. He is going to start taking nfcu-lgv-ohpeheb anti-inflammatori es, ibuprofen 600 mg b.i.d. until the injection works well for him. After that he can use it intermittently depending on symptoms and activities. He can repeat cortisone injections often as every 3 months. We will plan on seeing him back as needed. 20 minutes was spent treatment patient more than half of this in [id number]-[id number] conversation Not available 04/18/2023 13:30:50 Plan of Treatment Reminders Order Date Submit Date Provider Last Modified By Organization Details Last Modified Time Details Appointments None recorded. Lab None recorded. Referral None recorded. Procedures injection/a spiration joint/bursa (PROC) 2022 023 [email or web address] In-Office Order, Internal Use Only DO Not Attach Compendium DO Not Attach Compendium, Do Not Delete/merge, [id number] 09:25:44 Surgeries None recorded. Imaging XR, knee 2022 023 [email or web address] 3 [facility] [place], [facility], [place], [address], 13:45:37 Medication Orders bupivacaine HCl 0.5 % [...] XR, knee No observ ation record ed. [id number] [facility] [place] [address], [place], [address], 12/05/2022 20:58:20 04/18/20 23 XR, knee No observ ation record ed. [email or web address] [facility] [address], [place], [address], 04/18/2023 13:27:55 Result Notes None recorded. Problems Name Problem SNOMED Code Status Onset Date Resolution Date Notes Provider Name and Address Organization Details Recorded Time Pain of left knee joint [id number] Active 2022 Hina Sams, RMKal null, [place] [facility] 12:30:03 Problem Notes None recorded. Procedures Surgical History Date Name Laterality Status Provider Name and Address Organization Details Recorded Time hernia repair completed Not Available [facility] 12/05/2022 20:55:58 Rotator cuff surgery completed Not Available [facility] 12/05/2022 20:55:58 Imaging Results Imaging Date Name Status LastModified by Organiz ation Details LastModified Time 04/21/2021 XR, knee completed [id number] [facility] [address], [place], [address], 12/05/2022 20:58:20 04/18/2023 XR, knee completed [email or web address] [facility] [address], [place], [address], 04/18/2023 13:27:55 Procedure Notes None recorded. Medical [...] 2 mg by injection route. 2022 active [facility]: 0003- [id number]- 20 Not Available Not Available [...] Updated DateTime 04/21/2021 35.2 kg/m2 170.18 cm 758242.28 g Not Available [facility] 12/05/2022 20:56:03 Social History Question Answer Notes LastModified by Organizat ion Details LastModified Time Tobacco Smoking Status Never Smoker PHYLLIS Vickers null, [place] [facility] [employer] [facility] 04/18/2023 12:29:46 What Is Your Level Of Alcohol Consumption? None [email or web address] Information not available 04/18/2023 Sex: Unknown Functional Status None recorded. Mental Status None recorded. Family History Relationship Description Onset Age of this Age Resolved Age Notes LastModified by Organization Details LastModified Time Father Hypertensive disorder [id number] Not available 12/05/2022 20:55:58 Father Heart disease [email or web address] Not available 2022 12:29:37 Medical History Condition Response BLINDNESS N KIDNEY STONES N MRSA N CARPAL TUNNEL SYNDROME N LUNG DISEASE/DISORDER N HISTORY OF DRUG ABUSE N COPD N RADIATION / CHEMOTHERAPY N SPORTS INJURY N ANKLE PAIN N BLOOD DISEASES N SCHIZOPHRENIA N SHINGLES N SHOULDER PAIN N DEPRESSION (INCLUDING POST ) N BOWEL PROBLEMS N STROKE/TIA N KNEE PAIN N ULCERS [...] HAVE YOU BEEN HOSPITALIZED OR SEEN IN [facility] ER IN THE PAST YEAR ? [...] SNOMED-CT Code Diagnosis ICD10 Code Diagnosis Note [id number] [facility] [place] [address] [facility] [address] [place] [address] 04/21/2021 00:00:00 04/24/2021 14:08:09 [id number] KELTON West [facility] [place] [address] [place] [address] 04/18/2023 11:49:55 04/18/2023 13:45:37 Pain of left knee joint [id number] 33857 M25.562 Health Concerns Section Related Observation LastModified by Organization Detai ls LastModified Time None Recorded Concern Status LastModified by Organization Details LastModified Time None Recorded Advance Directives Directive None Recorded Payers Encounter Date Sequence Insurance Name Policy Number Policy Bass Covered Member ID Bass Member ID Guarantor Name 04/18/2023 1 [place] Aj Sosa Jr [id number] Aj Sosa 04/18/2023 2 [facility] OPTIONS (MEDICARE SUPPLEMENT) Aj Sosa [id number] Aj Sosa
--- OUTSIDE RECORDS SUMMARY | 2024-12-28 08:00 | XMS_ITS | Clinical Summary ---
Author Organization [facility] Address [address] [place] [address] Care Team Providers Care City Sanitarian Name Role Phone ChikaAndreas Primary Care Provider [phone] Allergies No known active allergies Medications glucosamine-cho [...] Active Additional Information Patient not taking.Reported on 12/17/2024 Active Problems Problem Noted Date Diagnosed Date [...] 12/13/2023 Assessment & Plan (12/13/2023 2:36 PM ANIMAL EVISCERATOR): Reporting increased VICKERS and significant fatigue after [...] weakness 11/24/2023 Diarrhea 11/24/2023 Assessment & Plan (12/17/2024 2:32 PM CDT): Was diagnosed with C diff last May. Two rounds of vancomycin were given that did no eradicate. He was then given fidaxomicin. Diarrhea resolved but now is currently having one very soft bowel movement every other day with no reports of blood or mucus nor abdominal pain. -Recommended for an increase his fiber intake with supplemental fiber like Metamucil or Benefiber. May started 5gm and titrate up to 25 g daily -Recommended starting qezt-fuo-qwakpyl probiotic like [employer] or [employer]. -Recommended wet wipes instead of toilet tissue to help with cleanliness Assessment & Plan (04/16/2024 12:26 PM CDT): Chronic diarrhea since a trip to [place] November 2023. Stool culture and C diff [...] cholestyramine 4 g p.o. b.i.d. -recommend starting ecyj-fpv-gypredv probiotics daily -we will order labs and [...] lung problem. He follows with Cardiology at [facility]. I will obtain BNP. Continue his antihypertensive medications. Obtain two views of chest x-ray and PFTs. Ascending aorta dilation 01/30/2017 Overview (03/11/2018): Chest CT 12/18/16 with 4.1 cm ascending aortic aneurysm Assessment & Plan (03/09/2024 11:48 AM CDT): Chest CT in 2016 measuring at 4.1 cm. T TTE from 2022 measuring aortic root at 4.1 and unchanged. Continue good blood pressure and heart rate control. Continue statin therapy. Assessment & Plan (12/13/2023 2:27 PM ANIMAL EVISCERATOR): Chest CT in 2017 measuring at 4.1 [...] fatigue. Assessment & Plan (12/13/2023 2:40 PM ANIMAL EVISCERATOR): Hypertension with recent hypotension following pneumonia. Has [...] apnea) Assessment & Plan (10/08/2024 9:27 AM ANIMAL EVISCERATOR): The patient continue to wear his CPAP at 10 cm water pressure while sleeping. [facility] Assessment & Plan (10/08/2023 10:57 AM ANIMAL EVISCERATOR): Patient will continue CPAP therapy at 10 cm water pressure. DME [facility] Assessment & Plan (08/14/2022 11:32 AM ANIMAL EVISCERATOR): Patient will continue CPAP therapy at 10 cm water pressure. I have ordered the patient a new SD card set at 10 cm water pressure. [facility] Assessment & Plan (07/31/2021 9:28 AM CDT): The patient continue to use his CPAP at 10 cm water pressure while sleeping. The patient was made aware of the recall and we did register his machine. The patient states he is using the so clean home restoration service cleaner. The patient was recommended to inspect [...] Encounters Date Type Department Care Team Description 12/17/2024 2:00 PM CDT Office Visit [facility] Gastroenterology at [address] [place] [address] Jeannine Mason NP Diarrhea, unspecified type (Primary Dx) 10/15/2024 Orders Only [facility] Scanning, Provider 10/08/2024 9:00 AM ANIMAL EVISCERATOR Office Visit [facility] Pulmonary [address] [place] [address] María Ponce NP ANGEL (obstructive sleep apnea) (Primary Dx) 10/01/2024 Orders Only [facility] Scanning, Provider from Last 3 Months Immunizations Immunization Administration [...] liver disease Obstructive sleep apnea Hyperlipidemia Neuropathy Depression Arthritis Ascending aorta dilation Family History Medical History Relation Name Comments Heart failure Father Family history of congestive heart failure - (Added by TW Anastasia) Relation Name Status Comments Father Social History Tobacco Use Types Packs/Day Years Used Date Smoking Tobacco: Never Smokeless Tobacco: Never Tobacco Cessation:Counseling Given: Not Answered [facility] Utilities Answer Date Recorded In the past 12 months has th e electric, gas, oil, or water company threatened to shut off services in your [...] often do you attend chur ch or methodist services? Never 11/25/2023 Do you belong to any clubs o r organizations such as orthodoxy groups, unions, fraternal or athletic groups, or [...] on file Legal Sex Male 1:43 AM ANIMAL EVISCERATOR Gender Identity Not on file Sexual Orientation Not on file Obstetrics History Last Filed Vital Signs Vital Sign Reading Time Taken Comments Blood Pressure 104/68 12/17/2024 2:00 PM CDT Pulse 75 12/17/2024 2:00 PM CDT Temperature 36.4 C (97.5 F) 10/08/2024 8:35 AM ANIMAL EVISCERATOR Respiratory Rate 18 10/08/2024 8:35 AM ANIMAL EVISCERATOR Oxygen Saturation 99% 10/08/2024 8:35 AM ANIMAL EVISCERATOR Inhaled Oxygen Concentration - - Weight 109.1 kg (240 lb 8.4 oz) 12/17/2024 2:00 PM CDT Height 174 cm (5' 8.5 ) 12/17/2024 2:00 PM CDT Body Mass Index 36.04 12/17/2024 2:00 PM CDT Plan of Treatment Health Maintenance Due [...] Indicated C. difficile 05/01/2024 05/01/2024 Insurance MEDICARE [facility] MEDICARE [facility] MEDICARE [facility] Advance Directives For more information, please contact: [phone] * Full Code (Latest Code Status on File) Date Activated Date Inactivated Comments 11/25/2023 12:11 AM 11/26/2023 5:35 PM Care Teams City Sanitarian Relationship Specialty Start Date End Date Andreas Farr DO PCP - General Internal Medicine 02/26/24
--- OUTSIDE RECORDS SUMMARY | 2024-12-28 08:00 | XMS_ITS | Encounter Summary ---
Author Organization [employer] Address [address] [place] [address] Care Team Providers Care Investigation Lieutenant Name Role Phone Boy Urbano MD Primary Care Provider + Encounter Details Date Type Department Care Team (Late st Contact Info) Description 10/21/2002 Outpatient [facility] [address] [place] [address]. [place] [address] Edwin Garcia MD Social History Tobacco Use Types Packs/Day Years Used Date Smoking Tobacco: Never Assessed Sex and Gender Information Value Date Recorded Sex Assigned at Not on file Legal Sex Male 4:42 AM COMMUNICATIONS OPERATOR Gender Identity Not on file Sexual Orientation Not on file documented as of this encounter Plan of Treatment Not on file documented as of this encounter Visit Diagnoses Not on filedocumented in this encounter Care Teams Investigation Lieutenant Relationship Specialty Start Date End Date Boy Urbano MD [address] [place] [phone] PCP - General 12/04/12 10/07/18 documented as of this encounter
--- OUTSIDE RECORDS SUMMARY | 2024-12-28 08:00 | XMS_ITS | Encounter Summary ---
Author Organization [employer] Address [address] [place] [address] Care Team Providers Care Bit Bender Name Role Phone Boy Urbano MD Primary Care Provider + Encounter Details Date Type Department Care Team (Late st Contact Info) Description 09/13/2002 Outpatient [facility] [address] [place] [address] Social History Tobacco Use Types Packs/Day Years Used Date Smoking Tobacco: Never Assessed Sex and Gender Information Value Date Recorded Sex Assigned at Not on file Legal Sex Male 4:42 AM LOCKER ROOM CLERK Gender Identity Not on file Sexual Orientation Not on file documented as of this encounter Plan of Treatment Not on file documented as of this encounter Visit Diagnoses Not on filedocumented in this encounter Care Teams Bit Bender Relationship Specialty Start Date End Date Boy Urbano MD [address] [place] [phone] PCP - General 12/04/12 10/07/18 documented as of this encounter
--- OUTSIDE RECORDS SUMMARY | 2024-12-28 08:00 | XMS_ITS | Encounter Summary ---
Author Organization [employer] Address [address] [place] [address] Care Team Providers Care Cigar Binder Name Role Phone Boy Urbano MD Primary Care Provider + Encounter Details Date Type Department Care Team (Late st Contact Info) Description 08/26/2006 Outpatient [facility] [address] [place] [address]. [place] [address] Edwin Garcia MD Social History Tobacco Use Types Packs/Day Years Used Date Smoking Tobacco: Never Assessed Sex and Gender Information Value Date Recorded Sex Assigned at Not on file Legal Sex Male 4:42 AM MIS MANAGER Gender Identity Not on file Sexual Orientation Not on file documented as of this encounter Plan of Treatment Not on file documented as of this encounter Visit Diagnoses Not on filedocumented in this encounter Care Teams Cigar Binder Relationship Specialty Start Date End Date Boy Urbano MD [address] [place] [phone] PCP - General 12/04/12 10/07/18 documented as of this encounter
--- OUTSIDE RECORDS SUMMARY | 2024-12-28 08:00 | XMS_ITS | Encounter Summary ---
Author Organization [facility] Address [address] [place] [address] Care Team Providers Care Panel Lay Up Worker Name Role Phone Allan Shields DO Primary Care Provider [phone] Encounter Details Date Type Department Care Team (Late st Contact Info) Description 11/14/2021 Lab Requisition [facility] Care Pathology Lab [address] [place] [address] Keli Cota MD [address] [place], [place] [id number] Illness, unspecified Social History Tobacco Use Types [...] ON REFERRED CASE Routine 11/10/2021 1:01 PM LUMBER SALVAGER Illness, unspecified documented in this encounter Results * PATH CONSULT ON REFERRED CASE (11/10/2021 1:01 PM LUMBER SALVAGER) Final Diagnosis URINE, VOIDED, THIN PREP, CYTOLOGY (OSC: [id number]; 11/10/2021): - No malignant cells see (TPS Category II, negative for high grade urothelial carcinoma) 11/14/2021 4:04 PM LUMBER SALVAGER [facility] Microscopic Description and Comment Performed. 11/14/2021 4:04 PM LUMBER SALVAGER [facility] Clinical History FREQUENCY 11/14/2021 4:04 PM [facility] Materials Received Prepared slide received from [facility] [id number]. All material will be returned. 11/14/2021 4:04 PM [facility] Disclaimer The performance characteristics of all immunohistochemical and indirect immunofluorescence stains (if any) cited in this report were determined by the Histopathology Laboratory of [facility]. Some of these tests were [...] the attending (teaching) pathologist. 11/14/2021 4:04 PM [facility] Case Report Surgical Pathology Report Case: [id number] Authorizing Provider: Keli Cota MD Collected: 11/10/2021 01:01 PM Ordering Location: [facility] Pathology Lab Received: 11/14/2021 01:01 PM Pathologist: Gali Malik MD Specimen: Slide Consultation 11/14/2021 4:04 PM [facility] Embedded Images 11/14/2021 4:04 PM [facility] Pathology/Cytolo gy SURGICAL PATHOLOGY CONSULTATION AND REPORT ON REFERRED SLIDES PREPARED ELSEWHERE / Unknown 11/10/2021 1:01 PM LUMBER SALVAGER 11/14/2021 1:01 PM LUMBER SALVAGER Keli Cota MD LAB - PATHOLOGY/CYTO LOGY ORDERABLES [facility] PATHOLOGY LAB [address] [phone] documented in this encounter Visit Diagnoses Diagnosis Illness, unspecified documented in this encounter Care Teams Panel Lay Up Worker Relationship Specialty Start Date End Date Allan Shields DO [address] [facility] [address] [facility] [address] [place] [address] PCP - General 02/24/18 documented as of this encounter
--- OUTSIDE RECORDS SUMMARY | 2024-12-28 08:00 | XMS_ITS | Clinical Summary ---
Author Organization [facility] Address [address] [place] [address] Care Team Providers Care Hand Scudder Name Role Phone Unavailable Primary Care Provider [...] migh t be different from the original. Family Court Counsellor-Dr. Demetrio Parekh ([place]) Problem Noted Date Diagnosed Date Neuropathy 01/10/2016 [...] on file Legal Sex Male 4:42 AM FIELD APPLICATIONS SPECIALIST Gender Identity Not on file Sexual Orientation [...] Q 1 year 06/04/2014 06/04/2013 PNEUMOCOCCAL VACCINE 50+ YEA RS (2 of 2 - PPSV23) [...] Most Recently Relevant to Health Maintenance Insurance [facility] [id number]
--- OUTSIDE RECORDS SUMMARY | 2024-12-28 08:00 | XMS_ITS | Referral Summary ---
Author Organization [facility] Address [address] [place] [address] Care Team Providers Care Visual Journalist Name Role Phone Andreas Farr Primary Care Provider [phone] Encounters Date Type Department Care Team Description 12/17/2024 2:00 PM CDT Office Visit [facility] Gastroenterology at [address] [place] [address] Jeannine Mason NP Diarrhea, unspecified type (Primary Dx) 10/15/2024 Orders Only [facility] Scanning, Provider 10/08/2024 9:00 AM GROOVER AND STRIPER OPERATOR Office Visit [facility] [address] [place] [address] María Ponce NP ANGEL (obstructive sleep apnea) (Primary Dx) 10/01/2024 Orders Only [facility] Scanning, Provider from Last 3 Months Allergies No known [...] 12/13/2023 Assessment & Plan (12/13/2023 2:36 PM GROOVER AND STRIPER OPERATOR): Reporting increased VICKERS and significant fatigue [...] up to 25 g daily -Recommended starting wwhl-gne-frvcyyu probiotic like RentJuice or ROLI. -Recommended wet wipes instead of toilet tissue to help with cleanliness Assessment & Plan (04/16/2024 12:26 PM CDT): Chronic diarrhea since a trip to [place] November 2023. Stool culture and C diff [...] cholestyramine 4 g p.o. b.i.d. -recommend starting macj-mku-iffnfeq probiotics daily -we will order labs and [...] lung problem. He follows with Cardiology at [facility]. I will obtain BNP. Continue his antihypertensive [...] therapy. Assessment & Plan (12/13/2023 2:27 PM GROOVER AND STRIPER OPERATOR): Chest CT in 2017 measuring at [...] fatigue. Assessment & Plan (12/13/2023 2:40 PM GROOVER AND STRIPER OPERATOR): Hypertension with recent hypotension following pneumonia. [...] apnea) Assessment & Plan (10/08/2024 9:27 AM GROOVER AND STRIPER OPERATOR): The patient continue to wear his CPAP at 10 cm water pressure while sleeping. His DME is [facility] Assessment & Plan (10/08/2023 10:57 AM GROOVER AND STRIPER OPERATOR): Patient will continue CPAP therapy at 10 cm water pressure. DME [facility] Assessment & Plan (08/14/2022 11:32 AM GROOVER AND STRIPER OPERATOR): Patient will continue CPAP therapy at [...] states he is using the so clean gut cleaner. The patient was recommended to inspect [...] Tobacco: Never Tobacco Cessation:Counseling Given: Not Answered [facility] Utilities Answer Date Recorded In the past [...] often do you attend chur ch or roman catholic services? Never 11/25/2023 Do you belong to any clubs o r organizations such as yarsanism groups, unions, fraternal or athletic groups, or [...] on file Legal Sex Male 1:43 AM GROOVER AND STRIPER OPERATOR Gender Identity Not on file Sexual Orientation Not on file Last Filed Vital Signs Vital Sign Reading Time Taken Comments Blood Pressure 104/68 12/17/2024 2:00 PM CDT Pulse 75 12/17/2024 2:00 PM CDT Temperature 36.4 C (97.5 F) 10/08/2024 8:35 AM GROOVER AND STRIPER OPERATOR Respiratory Rate 18 10/08/2024 8:35 AM GROOVER AND STRIPER OPERATOR Oxygen Saturation 99% 10/08/2024 8:35 AM GROOVER AND STRIPER OPERATOR Inhaled Oxygen Concentration - - Weight 109.1 kg (240 lb 8.4 oz) 12/17/2024 2:00 PM CDT Height 174 cm (5' 8.5 ) 12/17/2024 2:00 PM CDT Body Mass Index 36.04 12/17/2024 2:00 PM CDT Plan of Treatment Not on file Procedures [...] Indicated C. difficile 05/01/2024 05/01/2024 Insurance MEDICARE [facility] MEDICARE [facility] [place] [address] MEDICARE [facility] Advance Directives For more information, please contact: [phone] * Full Code (Latest Code Status on File) Date Activated Date Inactivated Comments 11/25/2023 12:11 AM 11/26/2023 5:35 PM Care Teams Visual Journalist Relationship Specialty Start Date End Date Andreas Farr DO PCP - General Internal Medicine 02/26/24
--- OUTSIDE RECORDS SUMMARY | 2024-12-28 08:00 | XMS_ITS | Encounter Summary ---
Author Organization [facility] Address [address] [place] [address] Care Team Providers Care Head Track Coach Name Role Phone Boy Urbano MD Primary Care Provider + Encounter Details Date Type Department Care Team (Late st Contact Info) Description 03/24/2003 Outpatient [facility] [address] [place] [address]. [place] [address] Edwin Garcia MD Social History Tobacco Use Types Packs/Day Years Used Date Smoking Tobacco: Never Assessed Sex and Gender Information Value Date Recorded Sex Assigned at Not on file Legal Sex Male 4:42 AM COUNTER SUPPLY WORKER Gender Identity Not on file Sexual Orientation Not on file documented as of this encounter Plan of Treatment Not on file documented as of this encounter Visit Diagnoses Not on filedocumented in this encounter Care Teams Head Track Coach Relationship Specialty Start Date End Date Boy Urbano MD [address] [place] [phone] PCP - General 12/04/12 10/07/18 documented as of this encounter
--- OUTSIDE RECORDS SUMMARY | 2024-12-28 08:00 | XMS_ITS | Encounter Summary ---
Author Organization [facility] Address [address] [place] [address] Care Team Providers Care Film And Video Editor Name Role Phone Boy Urbano MD Primary Care Provider + Encounter Details Date Type Department Care Team (Late st Contact Info) Description 09/11/2002 Outpatient [facility] [address] [place] [address] Cornell Resendez MD [address] [facility] [address] [place] [address] Social History Tobacco Use Types Packs/Day Years Used Date Smoking Tobacco: Never Assessed Sex and Gender Information Value Date Recorded Sex Assigned at Not on file Legal Sex Male 4:42 AM REGISTRAR MUSEUM Gender Identity Not on file Sexual Orientation Not on file documented as of this encounter Plan of Treatment Not on file documented as of this encounter Visit Diagnoses Not on filedocumented in this encounter Care Teams Film And Video Editor Relationship Specialty Start Date End Date Boy Urbano MD [address] [place] [phone] PCP - General 12/04/12 10/07/18 documented as of this encounter
--- OUTSIDE RECORDS SUMMARY | 2024-12-28 08:00 | XMS_ITS | Clinical Summary ---
Author Organization [facility] Address [address] [facility] [place] [address] Care Team Providers Care Management Technician Name Role Phone Allan Shields DO Primary Care Provider [phone] Source Comments [facility],non-owned Affiliates and Associated Physician Practices is amultiple site organization consisting of ambulatory clinics and hospital sitesin [place], [place], [place] and [place]. This disclosure is being madepursuant to the Care Everywhere program and may not contain all information available regarding this patient. Last updated 18.[facility] Allergies No known active allergies Medications * [...] Comments Blood Pressure 160/88 09/08/2009 1:27 PM TORCH CUTTER Pulse 72 09/08/2009 1:27 PM TORCH CUTTER Temperature - - Respiratory Rate - - Oxygen Saturation - - Inhaled Oxygen Concentration - - Weight 109.8 kg (242 lb) 09/08/2009 1:27 PM TORCH CUTTER Height 174 cm (5' 8.5 ) 09/08/2009 1:27 PM TORCH CUTTER Body Mass Index 36.26 09/08/2009 1:27 PM TORCH CUTTER Plan of Treatment Health Maintenance Due Date [...] to complete this topic MENINGOCOCCAL (Group B) VACC INE SHARED DECISION-MAKING Aged Out No longer eligibl e based on patient's age to complete this topic MENINGOCOCCAL GROUPS A/C/Y/W VACCINE Aged Out No longer eligible b ased on patient's age to complete this topic [...] PM CDT Narrative Resulting Agency Comment [facility] [address] [id number] Gab Lamar MD LAB - CHEMISTRY DEBRA WO[facility] INSURANCE BILL from Last 3 Months or Most Recently Relevant to Health Maintenance Care Teams Management Technician Relationship Specialty Start Date End Date Allan Shields DO [address] [place] [address] PCP - General 02/24/18
== END 2024-12-28 07:54 | disposition home or self-care (01) ==
PROVIDERS: PCP Internal Medicine; Visit Provider Physician Assistant Surgical
DX: M75.122 Complete rotator cuff tear or rupture of left shoulder, not specified as traumatic (principal); M94.212 Chondromalacia, left shoulder; M19.012 Primary osteoarthritis, left shoulder; S46.212A Strain of muscle, fascia and tendon of other parts of biceps, left arm, initial encounter; X58.XXXA Exposure to other specified factors, initial encounter; M25.412 Effusion, left shoulder; M75.52 Bursitis of left shoulder; M75.42 Impingement syndrome of left shoulder
CPT/HCPCS: 73221

== ENCOUNTER 2025-03-15 10:25 | Outpatient (CLI) | payer MEDICARE, SELFPAY ==
--- NOTE | ~2025-03-15 | XR_ITS ---
EXAM: [id number] DATE: 03/15/2025 11:09 HISTORY: neck pain . COMPARISON: None available. FINDINGS: Craniocervical association and atlantoaxial joint are aligned. Moderate atlantodental dege nerative change. Mildly exaggerated thoracic kyphosis and cervical lordosis. No prevertebral soft tis martin swelling. Trace anterolistheses at C2-3, C3-4, and C6-7. Trace retrolistheses at C4-5 and C5-6. V ertebral body heights are maintained. Degenerative disc disease at all levels, severe at C4-5. Multil evel moderate facet and uncovertebral joint hypertrophy and sclerosis. Possible C2-3 facet fusion. IMPRESSION: Minimal grade 1 listheses at multiple levels. Multilevel cervical spine degenerative disc disease, severe at C4-5. Multilevel moderate facet arthropathy. Reviewed, dictated and finalized at location K. IMPRESSION: Minimal grade 1 listheses at multiple levels. Multilevel cervical s pine degenerative disc disease, severe at C4-5. Multilevel moderate facet arthr opathy.
[2025-03-15 11:36] LABS: Basophils Percent Auto 0.5 % (0.2-1.2); Eosinophils Absolute Auto 0.2 K/mm3 (0-0.3); Eosinophils Percent Auto 3.4 % (0-4.4); Hematocrit 40.5 % (42.0-52.0); Hemoglobin 12.5 g/dL (14.0-18.0); Immature Granulocyte Absolute 0.06 K/mm3 (0.00-0.031); Immature Granulocyte Percent A 1.1 % (0-0.5); Immature Platelet Fraction Pct 9.1 % (0.9-11.2); Lymphocytes Absolute Auto 0.88 K/mm3 (0.9-3.2); Mean Corpuscular HGB Conc 30.9 g/dl (32-36); Mean Corpuscular Volume 97.1 fl (80-100); Mean Platelet Volume 11.9 fl (7.4-10.4); Monocytes Absolute Auto 0.5 K/mm3 (0.1-0.6); Monocytes Percent Auto 8.9 % (2.6-8.5); Neutrophils Absolute Auto 3.9 K/mm3 (1.3-6.7); Neutrophils Percent Auto 70.1 % (45.5-73.1); Platelet Count Result 145 k/mm3 (150-375); Red Blood Count 4.17 M/mm3 (4.6-6.20); Red Cell Distribution Width 13.2 % (11.5-14.5); White Blood Count 5.5 K/mm3 (4.5-10.0)
--- OUTSIDE RECORDS SUMMARY | 2025-03-15 11:43 | XMS_ITS | Encounter Summary ---
Author Organization [facility] Address [address] [place] [address] Care Team Providers Care Railroad Purchasing Agent Name Role Phone Allan Shields DO Primary Care Provider [phone] Encounter Details Date Type Department Care Team (Late st Contact Info) Description 11/14/2021 Lab Requisition [facility] [address] [place] [address] Keli Cota MD [address] [place], [place] [id number] Illness, unspecified Social History Tobacco Use Types Packs/Day Years Used Date Smoking Tobacco: Never Alcohol Use Standard Drinks/Week Comments Yes 2.5 (1 standard drink = 0.6 oz p ure alcohol) Sex and Gender Information Value Date Recorded Sex Assigned at Not on file Legal Sex Male 4:44 AM APPEALS MANAGER Gender Identity Not on file Sexual Orientation Not on file documented as of this encounter Plan of Treatment Not on file documented as of this encounter Procedures Procedure Name Priority Date/Time Associated Diagnosis Comments PATH CONSULT ON REFERRED CASE Routine 11/10/2021 1:01 PM APPEALS MANAGER Illness, unspecified documented in this encounter Results * PATH CONSULT ON REFERRED CASE (11/10/2021 1:01 PM APPEALS MANAGER) Final Diagnosis URINE, VOIDED, THIN PREP, CYTOLOGY (OSC: [id number]; 11/10/2021): - No malignant cells see (TPS Category II, negative for high grade urothelial carcinoma) 11/14/2021 4:04 PM APPEALS MANAGER [facility] at [address] APPEALS MANAGER Microscopic Description and Comment Performed. 11/14/2021 4:04 PM [facility] Clinical History FREQUENCY 11/14/2021 4:04 PM [facility] Materials Received Prepared slide received from [facility] [id number]. All material will be returned. 11/14/2021 4:04 PM [facility] Disclaimer The performance characteristics of all immunohistochemical and indirect immunofluorescence stains (if any) cited in this report were determined by the Histopathology Laboratory of [facility]. Some of these tests were developed by [...] the attending (teaching) pathologist. 11/14/2021 4:04 PM [facility] Case Report Surgical Pathology Report Case: [id number] Authorizing Provider: Keli Cota MD Collected: 11/10/2021 01:01 PM Ordering Location: [facility] Lab Received: 11/14/2021 01:01 PM Pathologist: Gali Malik MD Specimen: Slide Consultation 11/14/2021 4:04 PM [facility] Embedded Images 11/14/2021 4:04 PM [facility] Pathology/Cytolo gy SURGICAL PATHOLOGY CONSULTATION AND REPORT ON REFERRED SLIDES PREPARED ELSEWHERE / Unknown 11/10/2021 1:01 PM APPEALS MANAGER 11/14/2021 1:01 PM APPEALS MANAGER us Keli Cota MD LAB - PATHOLOGY/CYTOLOGY ORDERAB LES Final Result [facility] [address] [place], [place] [id number] [place] [address] documented in this encounter Visit Diagnoses Diagnosis Illness, unspecified documented in this encounter Care Teams Railroad Purchasing Agent Relationship Specialty Start Date End Date Allan Shields DO [address] [facility] [address] [place] [address] PCP - General 02/24/18 documented as of this encounter
--- OUTSIDE RECORDS SUMMARY | 2025-03-15 11:43 | XMS_ITS | Clinical Summary ---
Author Organization [facility] Address [address] [address] Phone Care Team Providers Care Supervisor Order Takers Name Role Phone Unavailable Primary Care Provider Unavailabl e Medications lisinopril-hydro CHLOROthiazide (PRINZIDE,ZESTOR ETIC) 10-12.5 MG per tablet 1 tab/cap qday [...] at Not on file Legal Sex Male 8:17 AM MST Gender Identity Not on file Sexual Orientation Not on file Last Filed Vital Signs Vital Sign Reading Time Taken Comments Blood Pressure 136/72 08/14/2017 12:01 AM BUS DRIVER SUPERVISOR Sitting, Right Pulse - - Temperature 35.9 C (96.7 F) 08/14/2017 12:01 AM BUS DRIVER SUPERVISOR Respiratory Rate - - Oxygen Saturation - - Inhaled Oxygen Concentration - - Weight 108 kg (238 lb) 08/14/2017 12:01 AM BUS DRIVER SUPERVISOR Height 175.3 cm (5' 9) 08/14/2017 12:0 1 AM BUS DRIVER SUPERVISOR Body Mass Index 35.15 08/14/2017 12:01 AM BUS DRIVER SUPERVISOR Plan of Treatment Not on file
--- OUTSIDE RECORDS SUMMARY | 2025-03-15 11:43 | XMS_ITS | Encounter Summary ---
Author Organization [facility] [employer] Address [address] [place] [address] Care Team Providers Care Calculus Tutor Name Role Phone Boy Urbano MD Primary Care Provider + Encounter Details Date Type Department Care Team (Late st Contact Info) Description 09/13/2002 Outpatient [facility] [address] [place] [address] Social History Tobacco Use Types Packs/Day Years Used Date Smoking Tobacco: Never Assessed Sex and Gender Information Value Date Recorded Sex Assigned at Not on file Legal Sex Male 4:42 AM OVERCOILER Gender Identity Not on file Sexual Orientation Not on file documented as of this encounter Plan of Treatment Not on file documented as of this encounter Visit Diagnoses Not on filedocumented in this encounter Care Teams Calculus Tutor Relationship Specialty Start Date End Date Boy Urbano MD [address] [place] [phone] PCP - General 12/04/12 10/07/18 documented as of this encounter
--- OUTSIDE RECORDS SUMMARY | 2025-03-15 11:43 | XMS_ITS | Data Portability ---
Author Organization [place] [facility] [employer], Main Office Address [address] [place] [address] Care Team Providers Care Extrusion Engineer Name Role Phone IMANI WELLS Primary Care Provider [phone] IMANI WELLS Referring Provider Assessment Encounter Date [...] well. He is going to start taking yszf-qwf-qepynnc anti-inflammatori es, ibuprofen 600 mg b.i.d. until the injection works well for him. After that he can use it intermittently depending on symptoms and activities. He can repeat cortisone injections often as every 3 months. We will plan on seeing him back as needed. 20 minutes was spent treatment patient more than half of this in [id number] conversation Not available 04/18/2023 13:30:50 Plan of Treatment Reminders Order Date Submit Date Provider Last Modified By Organization Details Last Modified Time Details Appointments None recorded. Lab None recorded. Referral None recorded. Procedures injection/a spiration joint/bursa (PROC) 2022 023 [email or web address] In-Office Order, Internal Use Only DO Not Attach Compendium DO Not Attach Compendium, Do Not Delete/merge, [id number] 09:25:44 Surgeries None recorded. Imaging XR, knee 2022 023 [email or web address] 3 [facility] [place], [place], [address], 13:45:37 Medication Orders bupivacaine HCl 0.5 % [...] XR, knee No observ ation record ed. [id number] [facility] [place] [address], [place], [address], 12/05/2022 20:58:20 04/18/20 23 XR, knee No observ ation record ed. [email or web address] [facility] [address], [place], [address], 04/18/2023 13:27:55 Result Notes None recorded. Problems Name Problem SNOMED Code Status Onset Date Resolution Date Notes Provider Name and Address Organization Details Recorded Time Pain of left knee joint [id number] Active 2022 PHYLLIS Vickers, [place] [facility] 3 12:30:03 Problem Notes None recorded. Procedures Surgical History Date Name Laterality Status Provider Name and Address Organization Details Recorded Time hernia repair completed Not Available [facility] 12/05/2022 20:55:58 Rotator cuff surgery completed Not Available [facility] 12/05/2022 20:55:58 Imaging Results None recorded. Procedure Notes None recorded. Medical Equipment None [...] mg by injection route. 2022 active [facility]: 0003- 0494- 20 Not Available Not Available [...] Updated DateTime 04/21/2021 35.2 kg/m2 170.18 cm 322914.28 g Not Available [facility] 12/05/2022 20:56:03 Social History None recorded. Functional Status Question Answer Note LastModified by Organization D etails LastModified Time What is your level of alcohol consumption? None [email or web address] Information not available 04/18/2023 Mental Status None recorded. Family History Relationship Description Onset Age of this Age Resolved Age Notes LastModified by Organization Details LastModified Time Father Hypertensive disorder [id number] Not available 12/05/2022 20:55:58 Father Heart disease [email or web address] Not available 2022 12:29:37 Medical History Condition [...] FOOT PROBLEM N HEART VALVE DISORDERS N SOFT TISSUE INJURY N ALLERGIES/HAYFEVER N INFECTIOUS DISEASE N HEART ARRHYTHMIA N INSOMNIA N RHEUMATOID ARTHRITIS N HIGH CHOLESTEROL / HYPERLIPIDEMIA N EDEMA N CHRONIC PAIN SYNDROME N CAROTID BLOCKAGE N BACK / NECK PROBLEMS N HAVE YOU BEEN HOSPITALIZED OR SEEN IN [facility] ER IN THE PAST YEAR ? [...] SNOMED-CT Code Diagnosis ICD10 Code Diagnosis Note [id number] Aj Dumont MD [facility] [place] [address] [facility] [address] [place] [address] 04/21/2021 00:00:00 04/24/2021 14:08:09 [id number] Aj Dumont MD [facility] [address] [place] [address] 04/18/2023 11:49:55 04/18/2023 13:45:37 Pain of left knee joint [id number] M25.562 Health Concerns Section Related Observation LastModified by Organization Detai ls LastModified Time None Recorded Concern Status LastModified by Organization Details LastModified Time None Recorded Advance Directives Directive None Recorded Payers Encounter Date Sequence Insurance Name Policy Number Policy Bass Covered Member ID Bass Member ID Guarantor Name 04/18/2023 1 [place] Aj Sosa [id number] Aj Sosa 04/18/2023 2 AARP (MEDICARE SUPPLEMENT) Aj Sosa [id number] Aj Sosa
--- OUTSIDE RECORDS SUMMARY | 2025-03-15 11:43 | XMS_ITS | Encounter Summary ---
Author Organization [email or web address] Address [address] [place] [address] Care Team Providers Care Heating Engineer Name Role Phone Boy Urbano MD Primary Care Provider + Encounter Details Date Type Department Care Team (Late st Contact Info) Description 08/26/2006 Outpatient [facility] [address] [place] [address]. [place] [address] Edwin Garcia MD Social History Tobacco Use Types Packs/Day Years Used Date Smoking Tobacco: Never Assessed Sex and Gender Information Value Date Recorded Sex Assigned at Not on file Legal Sex Male 4:42 AM STRIKE ON MACHINE OPERATOR Gender Identity Not on file Sexual Orientation Not on file documented as of this encounter Plan of Treatment Not on file documented as of this encounter Visit Diagnoses Not on filedocumented in this encounter Care Teams Heating Engineer Relationship Specialty Start Date End Date Boy Urbano MD [address] [place] [phone] PCP - General 12/04/12 10/07/18 documented as of this encounter
--- OUTSIDE RECORDS SUMMARY | 2025-03-15 11:43 | XMS_ITS | Encounter Summary ---
Author Organization [facility] [employer] [facility] Address [address] [place] [address] Care Team Providers Care Distillery Miller Helper Name Role Phone Boy Urbano MD Primary Care Provider + Encounter Details Date Type Department Care Team (Late st Contact Info) Description 09/11/2002 Outpatient [facility] [address] [place] [address] Cornell Resendez MD [address] [facility] [address] [place] [address] Social History Tobacco Use Types Packs/Day Years Used Date Smoking Tobacco: Never Assessed Sex and Gender Information Value Date Recorded Sex Assigned at Not on file Legal Sex Male 4:42 AM MUMPS DEVELOPER Gender Identity Not on file Sexual Orientation Not on file documented as of this encounter Plan of Treatment Not on file documented as of this encounter Visit Diagnoses Not on filedocumented in this encounter Care Teams Distillery Miller Helper Relationship Specialty Start Date End Date Boy Urbano MD [address] [place] [phone] PCP - General 12/04/12 10/07/18 documented as of this encounter
--- OUTSIDE RECORDS SUMMARY | 2025-03-15 11:43 | XMS_ITS | Clinical Summary ---
Author Organization [facility] Address [address] [facility] [place] [address] Care Team Providers Care Associate Music Professor Name Role Phone Allan Shields DO Primary Care Provider Source Comments [facility],non-owned Affiliates and Associated Physician Practices is amultiple site organization consisting of ambulatory clinics and hospital sitesin [place], [place], [place] and [place]. This disclosure is being madepursuant to the Care Everywhere program and may not contain all information available regarding this patient. Last updated 18.[employer] Allergies No known active allergies Medications * Be aware that medications may not be up to date on this document. Alwaysverify current medications with the patient. temazepam (RESTORIL) 30 MG capsuleIndicati ons:Insomnia Take 1 Cap by mouth nightly as needed for Insomnia. 30 5 09/05/2009 Active Immunizations Immunization Administration Dates Next Due INFLUENZA VACCINE 10/06/2009 Social History Tobacco Use Types Packs/Day Years Used Date Smoking Tobacco: Never Alcohol Use Standard Drinks/Week Comments Yes 2.5 (1 standard drink = 0.6 oz p ure alcohol) Sex and Gender Information Value Date Recorded Sex Assigned at Not on file Legal Sex Male 4:44 AM LEGISLATIVE DIRECTOR Gender Identity Not on file Sexual Orientation Not on file Last Filed Vital Signs Vital Sign Reading Time Taken Comments Blood Pressure 160/88 09/08/2009 1:27 PM LEGISLATIVE DIRECTOR Pulse 72 09/08/2009 1:27 PM LEGISLATIVE DIRECTOR Temperature - - Respiratory Rate - - Oxygen Saturation - - Inhaled Oxygen Concentration - - Weight 109.8 kg (242 lb) 09/08/2009 1:27 PM LEGISLATIVE DIRECTOR Height 174 cm (5' 8.5) 09/08/2009 1:27 PM LEGISLATIVE DIRECTOR Body Mass Index 36.26 09/08/2009 1:27 PM LEGISLATIVE DIRECTOR Plan of Treatment Health Maintenance Due Date [...] VACCINE ( - 2023-2 5 season) 2024 DEPRESSION SCREENING 10/07/2024 INFLUENZA VACCINE (Season Ended) 2025 10/06/20 09 Respiratory Syncytial Virus (RSV) Vaccine Pt: or [...] PM CDT Narrative Resulting Agency Comment [facility] [place] [address] [facility] [phone] us Gab Lamar MD LAB - CHEMISTRY ORDERABLES Fi nal Result [facility] INSURANCE BILL [address] [place] [address] from Last 3 Months or Most Recently Relevant to Health Maintenance Insurance MEDICARE [employer] MANAGED MEDICARE ADV Care Teams Associate Music Professor Relationship Specialty Start Date End Date Allan Shields DO [address] [facility] [address] [place] [address] PCP - General 02/24/18
--- OUTSIDE RECORDS SUMMARY | 2025-03-15 11:43 | XMS_ITS | Encounter Summary ---
Author Organization [employer] Address [address] [place] [address] Care Team Providers Care Frame And Scrap Crusher Name Role Phone Boy Urbano MD Primary Care Provider + Encounter Details Date Type Department Care Team (Late st Contact Info) Description 10/21/2002 Outpatient [facility] [address] [place] [address]. [place] [address] Edwin Garcia MD Social History Tobacco Use Types Packs/Day Years Used Date Smoking Tobacco: Never Assessed Sex and Gender Information Value Date Recorded Sex Assigned at Not on file Legal Sex Male 4:42 AM JEWEL GAUGER Gender Identity Not on file Sexual Orientation Not on file documented as of this encounter Plan of Treatment Not on file documented as of this encounter Visit Diagnoses Not on filedocumented in this encounter Care Teams Frame And Scrap Crusher Relationship Specialty Start Date End Date Boy Urbano MD [address] [place] [phone] PCP - General 12/04/12 10/07/18 documented as of this encounter
--- OUTSIDE RECORDS SUMMARY | 2025-03-15 11:43 | XMS_ITS | Encounter Summary ---
Author Organization [employer] Address [address] [place] [address] Care Team Providers Care Mechanic/Welder Name Role Phone Boy Urbano MD Primary Care Provider + Encounter Details Date Type Department Care Team (Late st Contact Info) Description 03/24/2003 Outpatient [facility] [address] [place] [address]. 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
--- OUTSIDE RECORDS SUMMARY | 2025-03-15 11:43 | XMS_ITS | Referral Summary ---
Author Organization [facility] Address [address] [place] [address] Care Team Providers Care Smoking Pipe Coater Name Role Phone Andreas Farr DO Primary Care Provider [phone] Encounters Date Type Department Care Team Description 12/17/2024 2:00 PM CDT Office Visit [facility] Gastroenterology at [address] [place] [address] Jeannine Mason NP Diarrhea, unspecified type (Primary Dx) from Last 3 Months Allergies No known [...] 12/13/2023 Assessment & Plan (12/13/2023 2:36 PM TRANSFORMATION CONSULTANT): Reporting increased VICKERS and significant fatigue after [...] up to 25 g daily -Recommended starting mqdp-qxu-scbdfui probiotic like [employer] or [employer]. -Recommended wet wipes instead of toilet tissue to help with cleanliness Assessment & Plan (04/16/2024 12:26 PM CDT): Chronic diarrhea since a trip to [place] November 2023. Stool culture and C diff [...] cholestyramine 4 g p.o. b.i.d. -recommend starting qgvb-pld-ybasgde probiotics daily -we will order labs and [...] problem. He follows with Cardiology at [facility]. I will obtain BNP. Continue his [...] therapy. Assessment & Plan (12/13/2023 2:27 PM TRANSFORMATION CONSULTANT): Chest CT in 2017 measuring at 4.1 [...] fatigue. Assessment & Plan (12/13/2023 2:40 PM TRANSFORMATION CONSULTANT): Hypertension with recent hypotension following pneumonia. Has [...] apnea) Assessment & Plan (10/08/2024 9:27 AM TRANSFORMATION CONSULTANT): The patient continue to wear his CPAP at 10 cm water pressure while sleeping. His DME is [facility] Assessment & Plan (10/08/2023 10:57 AM TRANSFORMATION CONSULTANT): Patient will continue CPAP therapy at 10 cm water pressure. DME [facility] Assessment & Plan (08/14/2022 11:32 AM TRANSFORMATION CONSULTANT): Patient will continue CPAP therapy at 10 [...] states he is using the so clean auto cleaner. The patient was recommended to inspect [...] Tobacco: Never Tobacco Cessation:Counseling Given: Not Answered [facility] Utilities Answer Date Recorded In the past 12 months has e [employer], gas, oil, or water company threatened to [...] often do you attend chur ch or nondenominational services? Never 11/25/2023 Do you belong to any clubs o r organizations such as episcopal groups, unions, fraternal or athletic groups, or [...] on file Legal Sex Male 1:43 AM TRANSFORMATION CONSULTANT Gender Identity Not on file Sexual Orientation Not on file Last Filed Vital Signs Vital Sign Reading Time Taken Comments Blood Pressure 104/68 12/17/2024 2:00 PM CDT Pulse 75 12/17/2024 2:00 PM CDT Temperature 36.4 C (97.5 F) 10/08/2024 8:35 AM TRANSFORMATION CONSULTANT Respiratory Rate 18 10/08/2024 8:35 AM TRANSFORMATION CONSULTANT Oxygen Saturation 99% 10/08/2024 8:35 AM TRANSFORMATION CONSULTANT Inhaled Oxygen Concentration - - Weight 109.1 kg (240 lb 8.4 oz) 12/17/2024 2:00 PM CDT Height 174 cm (5' 8.5) 12/17/2024 2:00 PM CDT Body Mass Index 36.04 12/17/2024 2:00 PM CDT Plan of Treatment Not on file Additional Health Concerns Infection Onset Date Last Indicated C. difficile 05/01/2024 05/01/2024 [place] [address] MEDICARE [facility] MEDICARE [facility] Advance Directives For more information, please contact: [phone] * Full Code (Latest Code Status on File) Date Activated Date Inactivated Comments 11/25/2023 12:11 AM 11/26/2023 5:35 PM Care Teams Smoking Pipe Coater Relationship Specialty Start Date End Date Andreas Farr DO PCP - General Internal Medicine 02/26/24
--- OUTSIDE RECORDS SUMMARY | 2025-03-15 11:43 | XMS_ITS | Clinical Summary ---
Author Organization [facility] Address [address] [place] [address] Care Team Providers Care Charter Driver Name Role Phone ChikaAndreas Primary Care Provider [phone] Allergies No known active allergies Medications glucosamine-cho [...] 12/13/2023 Assessment & Plan (12/13/2023 2:36 PM TEST BAKER): Reporting increased VICKERS and significant fatigue after [...] up to 25 g daily -Recommended starting dygi-roz-bzfanym probiotic like [employer] or [employer]. -Recommended wet wipes instead of toilet tissue to help with cleanliness Assessment & Plan (04/16/2024 12:26 PM CDT): Chronic diarrhea since a trip to [place] November 2023. Stool culture and C diff [...] cholestyramine 4 g p.o. b.i.d. -recommend starting oxfo-hco-ewqnlme probiotics daily -we will order labs and [...] lung problem. He follows with Cardiology at [facility]. I will obtain BNP. Continue his [...] therapy. Assessment & Plan (12/13/2023 2:27 PM TEST BAKER): Chest CT in 2017 measuring at 4.1 [...] fatigue. Assessment & Plan (12/13/2023 2:40 PM TEST BAKER): Hypertension with recent hypotension following pneumonia. Has [...] apnea) Assessment & Plan (10/08/2024 9:27 AM TEST BAKER): The patient continue to wear his CPAP at 10 cm water pressure while sleeping. [facility] Assessment & Plan (10/08/2023 10:57 AM TEST BAKER): Patient will continue CPAP therapy at 10 cm water pressure. DME [facility] Assessment & Plan (08/14/2022 11:32 AM TEST BAKER): Patient will continue CPAP therapy at 10 cm water pressure. I have ordered the patient a new SD card set at 10 cm water pressure. [facility] Assessment & Plan (07/31/2021 9:28 AM CDT): The patient continue to use his CPAP at 10 cm water pressure while sleeping. The patient was made aware of the recall and we did register his machine. The patient states he is using the so clean high pressure cleaner. The patient was recommended to inspect [...] Description 12/17/2024 2:00 PM CDT Office Visit [facility] Medical Group Gastroenterology at [address] [place] [phone] Jeannine Mason, MARNI Diarrhea, unspecified type (Primary Dx) from Last 3 Months Immunizations Immunization Administration [...] congestive heart failure - (Added by TW Conv) Relation Name Status Comments Father Social History Tobacco Use Types Packs/Day Years Used Date Smoking Tobacco: Never Smokeless Tobacco: Never Tobacco Cessation:Counseling Given: Not Answered [facility] Utilities Answer Date Recorded In [...] often do you attend chur ch or latter day services? Never 11/25/2023 Do you belong to any clubs o r organizations such as roman catholic groups, unions, fraternal or athletic groups, or [...] on file Legal Sex Male 1:43 AM TEST BAKER Gender Identity Not on file Sexual Orientation Not on file Obstetrics History Last Filed Vital Signs Vital Sign Reading Time Taken Comments Blood Pressure 104/68 12/17/2024 2:00 PM CDT Pulse 75 12/17/2024 2:00 PM CDT Temperature 36.4 C (97.5 F) 10/08/2024 8:35 AM TEST BAKER Respiratory Rate 18 10/08/2024 8:35 AM TEST BAKER Oxygen Saturation 99% 10/08/2024 8:35 AM TEST BAKER Inhaled Oxygen Concentration - - Weight 109.1 [...] (2 - Td or Tdap) 08/09/2021 08/09/2011 Fall Risk Assessment 11/26/2024 11/26/2023 Influenza Vaccine (Season Ended) 2025 09/05/2023, 06/17/2020, 07/01/2019, Additional history exists Pneumococcal vaccine 65+ Completed 020, 09/12/2015, 08/07/2010, Additional history exists Additional Health Concerns Infection Onset Date Last Indicated C. difficile 05/01/2024 05/01/2024 Insurance MEDICARE MEDICARE [facility] [place] [address] MEDICARE [facility] Advance Directives For more information, please contact: [phone] * Full Code (Latest Code Status on File) Date Activated Date Inactivated Comments 11/25/2023 12:11 AM 11/26/2023 5:35 PM Care Teams Charter Driver Relationship Specialty Start Date End Date Andreas Farr DO PCP - General Internal Medicine 02/26/24
--- OUTSIDE RECORDS SUMMARY | 2025-03-15 11:44 | XMS_ITS | Clinical Summary ---
Author Organization [facility] Address [address] [place] [address] Care Team Providers Care Chronic Manager Name Role Phone Unavailable Primary Care Provider [...] migh t be different from the original. Aircraft Pneudraulic Systems Mechanic-Dr. Demetrio Parekh ([place]) Problem Noted Date Diagnosed Date Neuropathy 01/10/2016 [...] on file Legal Sex Male 4:42 AM SLASH TRIMMER Gender Identity Not on file Sexual Orientation [...] 7:06 AM CDT Height 175.3 cm (5' 9) 01/10/2016 7:06 AM CDT Body Mass Index [...] Most Recently Relevant to Health Maintenance Insurance [facility] [id number]
[2025-03-15 11:51] LABS: Alanine Aminotransferase 26 U/L (6-50); Albumin Level 4.5 g/dL (3.5-5.1); Alkaline Phosphatase 78 U/L (38-126); Anion Gap 8 mmol/L (4-12); Aspartate Amino Transferase 34 U/L (17-59); Bilirubin,Total 0.4 mg/dL (0.2-1.3); Blood Urea Nitrogen 34 mg/dL (9-20); Calcium 9.7 mg/dL (8.4-10.2); Carbon Dioxide 25 mmol/L (22-30); Chloride 108 mmol/L (98-107); Estimated Glomerular Filt Rate 37; Glucose 112 mg/dL (65-110); Potassium 5.1 mmol/L (3.4-5.0); Sodium 141 mmol/L (137-145); Total Protein 7.5 g/dL (6.3-8.2)
[2025-03-15 12:01] LABS: Erythrocyte Sedimentation Rate 16 mm/hr (0-20)
[2025-03-15 12:02] LABS: Complement C3 120 mg/dL (88-165)
== END 2025-03-15 10:26 | disposition home or self-care (01) ==
PROVIDERS: PCP Internal Medicine; Visit Provider Nurse Practitioner
DX: M43.12 Spondylolisthesis, cervical region (principal); M50.321 Other cervical disc degeneration at C4-C5 level; M47.812 Spondylosis without myelopathy or radiculopathy, cervical region; M06.09 Rheumatoid arthritis without rheumatoid factor, multiple sites; R76.8 Other specified abnormal immunological findings in serum; Z79.899 Other long term (current) drug therapy
CPT/HCPCS: 36415; 72040; 80053; 85025; 85055; 85652; 86160; 86225

== ENCOUNTER 2025-03-22 09:29 | Outpatient (CLI) | payer MEDICARE, OTHER, SELFPAY ==
--- OUTSIDE RECORDS SUMMARY | 2025-03-22 10:07 | XMS_ITS | Referral Summary ---
Author Organization [facility] Address [address] [place] [address] Care Team Providers Care Web Operations Lead Name Role Phone ChikaAndreas boyd Primary Care Provider [phone] Encounters Date Type Department Care Team Description 03/16/2025 1:15 PM CDT Office Visit [facility] Cardiology [address] [facility] 8th [place] [address] [place] [address] Daniel Cohen MD Primary hypertension (Primary Dx); Stage 3 chronic kidney disease, unspecified whether stage 3a or 3b CKD (HCC); Dyslipidemia; Aneurysm of ascending aorta without rupture from Last 3 Months Allergies No known active allergies Medications glucosamine-ch ondroitin 500-400 mg capsule Take 2 capsules by mouth daily Active primidone (MYSOLINE) 50 mg tablet Take 2 tablets (100 mg total) by mouth nightly 1 Active cetirizine (ZyrTEC) 10 mg tablet Take 1 tablet (10 mg total) by mouth daily Active DULoxetine DR (CYMBALTA) 30 mg capsule Take 1 capsule (30 mg total) by mouth daily 4 Active inulin-chromiu m picolinate 2-100 gram-mcg tablet,chewabl e Take by mouth Active hydroxychloroq uine (PLAQUENIL) 200 mg tablet Take 1 tablet (200 mg total) by mouth 2 (two) times a day 4 Active atorvastatin (LIPITOR) 20 mg tablet TAKE 1 TABLET(20 MG) BY MOUTH DAILY 90 tablet 3 4 Active atorvastatin (LIPITOR) 20 mg tablet TAKE 1 TABLET(20 MG) BY MOUTH DAILY 90 tablet 3 4 Active Additional Information Patient not taking.Reported on 03/16/2025 amLODIPine (NORVASC) 10 mg tablet Take 1 tablet (10 mg total) by mouth daily 90 tablet 3 5 Active chlorthalidone 12.5 mg tablet Take 12.5 mg by mouth daily 90 tablet 3 5 Active lisinopriL (PRINIVIL,ZEST RIL) 40 mg tablet Take 1 tablet (40 mg total) by mouth daily 90 tablet 3 5 Active lisinopriL (PRINIVIL,ZEST RIL) 40 mg tablet TAKE 1 TABLET(40 MG) BY MOUTH DAILY 90 tablet 3 4 03/16/20 25 Discontin ued(Reord er) amLODIPine (NORVASC) 10 mg tablet Take 1 tablet (10 mg total) by mouth daily 30 tablet 11 4 03/16/20 25 Discontin ued(Reord er) chlorthalidone (HYGROTON) 25 mg tablet Take 1 tablet (25 mg total) by mouth daily 30 tablet 11 4 03/16/20 25 Discontin ued(Reord er) Active Problems Problem Noted Date Diagnosed Date [...] 12/13/2023 Assessment & Plan (12/13/2023 2:36 PM WOOD CARVING MACHINE OPERATOR): Reporting increased VICKERS and significant [...] up to 25 g daily -Recommended starting owqx-vsv-svbdbbq probiotic like [employer] or [employer]. -Recommended wet wipes instead of toilet tissue [...] cholestyramine 4 g p.o. b.i.d. -recommend starting rpwq-ody-iarbkob probiotics daily -we will order labs and [...] lung problem. He follows with Cardiology at [facility]. I will obtain BNP. Continue his [...] therapy. Assessment & Plan (12/13/2023 2:27 PM WOOD CARVING MACHINE OPERATOR): Chest CT in 2017 measuring at 4.1 cm. TTE from 2018 measuring 4.3 cm. TTE from 2022 measuring aortic root at 4.1 and unchanged. Continue good blood pressure and heart rate control. Continue statin therapy. Assessment & Plan (06/14/2023 2:22 PM CDT): Chest CT in 2017 measuring at 4.1 cm. TTE from 2018 measuring 4.3 cm. Continue good blood pressure [...] fatigue. Assessment & Plan (12/13/2023 2:40 PM WOOD CARVING MACHINE OPERATOR): Hypertension with recent hypotension following [...] apnea) Assessment & Plan (10/08/2024 9:27 AM WOOD CARVING MACHINE OPERATOR): The patient continue to wear his CPAP at 10 cm water pressure while sleeping. His DME is [facility] Assessment & Plan (10/08/2023 10:57 AM WOOD CARVING MACHINE OPERATOR): Patient will continue CPAP therapy at 10 cm water pressure. DME [facility] Assessment & Plan (08/14/2022 11:32 AM WOOD CARVING MACHINE OPERATOR): Patient will continue CPAP therapy [...] states he is using the so clean stock sheets cleaner inspector. The patient was recommended to inspect his [...] the past 12 months has th e [employer], gas, oil, or water eventblimp threatened to shut off services in your [...] often do you attend chur ch or quaker services? Never 11/25/2023 Do you belong to any clubs o r organizations such as zoroastrianism groups, unions, fraternal or athletic groups, or [...] on file Legal Sex Male 1:43 AM WOOD CARVING MACHINE OPERATOR Gender Identity Not on file Sexual Orientation Not on file Last Filed Vital Signs Vital Sign Reading Time Taken Comments Blood Pressure 112/71 03/16/2025 1:17 PM CDT Pulse 74 03/16/2025 1:17 PM CDT Temperature 36.4 C (97.5 F) 10/08/2024 8:35 AM WOOD CARVING MACHINE OPERATOR Respiratory Rate 18 10/08/2024 8:35 AM WOOD CARVING MACHINE OPERATOR Oxygen Saturation 97% 03/16/2025 1:17 PM CDT Inhaled Oxygen Concentration - - Weight 110.1 kg (242 lb 12.8 oz) 03/16/2025 1:17 PM CDT Height 174 cm (5' 8.5) 03/16/2025 1:17 PM CDT Body Mass Index 36.38 03/16/2025 1:17 PM CDT Plan of Treatment Not on file Additional Health Concerns Infection Onset Date Last Indicated C. difficile 05/01/2024 05/01/2024 Insurance MEDICARE MEDICARE [facility] MEDICARE [employer] Advance Directives For more information, please contact: [phone] * Full Code (Latest Code Status on File) Date Activated Date Inactivated Comments 11/25/2023 12:11 AM 11/26/2023 5:35 PM Care Teams Web Operations Lead Relationship Specialty Start Date End Date Andreas Farr DO PCP - General Internal Medicine 02/26/24
--- OUTSIDE RECORDS SUMMARY | 2025-03-22 10:07 | XMS_ITS | Data Portability ---
Author Organization [place] [facility], Main Office Address [address] [place] [address] Care Team Providers Care Ironworker Apprentice Shop Name Role Phone IMANI WELLS Primary Care [...] well. He is going to start taking lsyn-rga-cjdjywz anti-inflammatori es, ibuprofen 600 mg b.i.d. until the injection works well for him. After that he can use it intermittently depending on symptoms and activities. He can repeat cortisone injections often as every 3 months. We will plan on seeing him back as needed. 20 minutes was spent treatment patient more than half of this in [id number] conversation Not available 04/18/2023 13:30:50 Plan of Treatment Reminders Order Date Submit Date Provider Last Modified By Organization Details Last Modified Time Details Appointments None recorded. Lab None recorded. Referral None recorded. Procedures injection/a spiration joint/bursa (PROC) 2022 023 [email or web address] In-Office Order, Internal Use Only DO Not Attach Compendium DO Not Attach Compendium, Do Not Delete/merge, 10181 09:25:44 Surgeries None recorded. Imaging XR, knee 2022 023 [email or web address] 3 [facility] [place], [facility], [place], [address], 13:45:37 Medication Orders bupivacaine HCl 0.5 % [...] XR, knee No observ ation record ed. [id number] [facility] [place] [address], [place], [address], 12/05/2022 20:58:20 04/18/20 23 XR, knee No observ ation record ed. [email or web address] [facility] [address], [place], [address], 04/18/2023 13:27:55 Result Notes None recorded. Problems Name Problem SNOMED Code Status Onset Date Resolution Date Notes Provider Name and Address Organization Details Recorded Time Pain of left knee joint [id number] Active 2022 PHYLLIS Vickers, [place] - [facility] 3 12:30:03 Problem Notes None recorded. Procedures Surgical History Date Name Laterality Status Provider Name and Address Organization Details Recorded Time hernia repair completed Not Available [facility] hospital 12/05/2022 20:55:58 Rotator cuff surgery completed Not Available [facility] 12/05/2022 20:55:58 Imaging Results None recorded. Procedure [...] 2 mg by injection route. 2022 active [facility]: [phone] [phone] Not Available Not Available [...] Updated DateTime 04/21/2021 35.2 kg/m2 170.18 cm 401051.28 g Not Available [facility] 12/05/2022 20:56:03 Social History None recorded. Functional Status Question Answer Note LastModified by Organization D etails LastModified Time What is your level of alcohol consumption? None [email or web address] Information not available 04/18/2023 Mental Status None recorded. Family History Relationship Description Onset Age of this Age Resolved Age Notes LastModified by Organization Details LastModified Time Father Hypertensive disorder [id number] Not available 12/05/2022 20:55:58 Father Heart disease [email or web address] Not available 2022 12:29:37 Medical History Condition [...] HAVE YOU BEEN HOSPITALIZED OR SEEN IN [facility] ER IN THE PAST YEAR ? N [...] SNOMED-CT Code Diagnosis ICD10 Code Diagnosis Note [id number] Aj Dumont MD [facility] [place] [address] [address] [place] [address] 04/21/2021 00:00:00 04/24/2021 14:08:09 [id number] Aj Dumont MD [facility] [address] [place] [address] 04/18/2023 11:49:55 04/18/2023 13:45:37 Pain of left knee joint [id number] 80308 M25.562 Health Concerns Section Related Observation LastModified by Organization Detai ls LastModified Time None Recorded Concern Status LastModified by Organization Details LastModified Time None Recorded Advance Directives Directive None Recorded Payers Insurance Date Sequence Insurance Name Policy Number Policy Bass Covered Member ID Bass Member ID Guarantor Name 04/18/2023 1 [place] Aj Sosa [id number] Aj Sosa 04/23/2023 2 AARP (MEDICARE SUPPLEMENT) Aj Sosa [id number] Aj Sosa
--- OUTSIDE RECORDS SUMMARY | 2025-03-22 10:07 | XMS_ITS | Clinical Summary ---
Author Organization [facility] Address [address] [place] [address] Care Team Providers Care Paver Layer Name Role Phone ChikaAndreas Primary Care Provider [phone] Allergies No known active allergies Medications glucosamine-ch [...] 12/13/2023 Assessment & Plan (12/13/2023 2:36 PM TREE TRIMMING LINE TECHNICIAN): Reporting increased VICKERS and significant fatigue after [...] up to 25 g daily -Recommended starting etog-wlm-vpnzsnn probiotic like align or Uepaa. -Recommended wet wipes instead of toilet tissue to help with cleanliness Assessment & Plan (04/16/2024 12:26 PM CDT): Chronic diarrhea since a trip to [place] November 2023. Stool culture and C diff [...] cholestyramine 4 g p.o. b.i.d. -recommend starting apza-nbv-pfklxpx probiotics daily -we will order labs and [...] lung problem. He follows with Cardiology at [facility]. I will obtain BNP. Continue his [...] therapy. Assessment & Plan (12/13/2023 2:27 PM TREE TRIMMING LINE TECHNICIAN): Chest CT in 2017 measuring at 4.1 [...] fatigue. Assessment & Plan (12/13/2023 2:40 PM TREE TRIMMING LINE TECHNICIAN): Hypertension with recent hypotension following pneumonia. Has [...] disease) 013 Overview (04/14/2021): Repeat us stable /14 Depressive disorder, not elsewhere classified Obesity, unspecified 08/07/2010 Essential hypertension, benign 03/24/2010 ANGEL (obstructive sleep apnea) Assessment & Plan (10/08/2024 9:27 AM TREE TRIMMING LINE TECHNICIAN): The patient continue to wear his CPAP at 10 cm water pressure while sleeping. His DME is [facility] Assessment & Plan (10/08/2023 10:57 AM TREE TRIMMING LINE TECHNICIAN): Patient will continue CPAP therapy at 10 cm water pressure. DME [facility] Assessment & Plan (08/14/2022 11:32 AM TREE TRIMMING LINE TECHNICIAN): Patient will continue CPAP therapy at 10 [...] states he is using the so clean cleaner signs. The patient was recommended to inspect his [...] Description 03/16/2025 1:15 PM CDT Office Visit [facility] Cardiology [facility] 8th [place] [address] [place] [address] Daniel Cohen MD Primary hypertension (Primary Dx); Stage 3 chronic kidney disease, unspecified whether stage 3a or 3b CKD (HCC); Dyslipidemia; Aneurysm of ascending aorta without rupture from Last 3 Months Immunizations Immunization Administration [...] PROSTHESIS IMPLANT 10/07/2015 - 10/06/2016 @ [facility] COLONOSCOPY 10/07/2023 - 10/06/2024 Medical History Medical [...] Tobacco: Never Tobacco Cessation:Counseling Given: Not Answered [employer] Utilities Answer Date Recorded In the past 12 months has [employer], gas, oil, or water [employer] threatened to shut off services in your [...] week 11/25/2023 How often do you attend [facility] or cheondoism services? Never 11/25/2023 Do you belong to any clubs o r organizations such as christianity groups, unions, fraternal or athletic groups, or [...] on file Legal Sex Male 1:43 AM TREE TRIMMING LINE TECHNICIAN Gender Identity Not on file Sexual Orientation Not on file Obstetrics History Last Filed Vital Signs Vital Sign Reading Time Taken Comments Blood Pressure 112/71 03/16/2025 1:17 PM CDT Pulse 74 03/16/2025 1:17 PM CDT Temperature 36.4 C (97.5 F) 10/08/2024 8:35 AM TREE TRIMMING LINE TECHNICIAN Respiratory Rate 18 10/08/2024 8:35 AM TREE TRIMMING LINE TECHNICIAN Oxygen Saturation 97% 03/16/2025 1:17 PM CDT Inhaled Oxygen Concentration - - Weight 110.1 kg (242 lb 12.8 oz) 03/16/2025 1:17 PM CDT Height 174 cm (5' 8.5) 03/16/2025 1:17 PM CDT Body Mass Index 36.38 03/16/2025 1:17 PM CDT Plan of Treatment Health Maintenance [...] C. difficile 05/01/2024 05/01/2024 Insurance MEDICARE MEDICARE [facility] MEDICARE [facility] Advance Directives For more information, please contact: [phone] * Full Code (Latest Code Status on File) Date Activated Date Inactivated Comments 11/25/2023 12:11 AM 11/26/2023 5:35 PM Care Teams Paver Layer Relationship Specialty Start Date End Date Andreas Farr DO PCP - General Internal Medicine 02/26/24
--- OUTSIDE RECORDS SUMMARY | 2025-03-22 10:07 | XMS_ITS | Clinical Summary ---
Author Organization [facility] Address [address], [place] [address] Phone Care Team Providers Care Production Engineer Name Role Phone Unavailable Primary Care Provider [...] Comments Blood Pressure 136/72 08/14/2017 12:01 AM IMAGE ASSEMBLER Sitting, Right Pulse - - Temperature 35.9 C (96.7 F) 08/14/2017 12:01 AM IMAGE ASSEMBLER Respiratory Rate - - Oxygen Saturation - - Inhaled Oxygen Concentration - - Weight 108 kg (238 lb) 08/14/2017 12:01 AM IMAGE ASSEMBLER Height 175.3 cm (5' 9) 08/14/2017 12:0 1 AM IMAGE ASSEMBLER Body Mass Index 35.15 08/14/2017 12:01 AM IMAGE ASSEMBLER Plan of Treatment Not on file
--- OUTSIDE RECORDS SUMMARY | 2025-03-22 10:08 | XMS_ITS | Clinical Summary ---
Author Organization [facility] Address [address] [facility] [place] [address] Care Team Providers Care Materials Branch Chief Name Role Phone Allan Shields DO Primary Care Provider Source Comments [facility],non-owned Affiliates and Associated Physician Practices is amultiple site organization consisting of ambulatory clinics and hospital sitesin [place], [place], [place] and [place]. This disclosure is being madepursuant to the Care Everywhere program and may not contain all information available regarding this patient. Last updated 18.[employer] Allergies No known active allergies Medications * [...] on file Legal Sex Male 4:44 AM CROP FARM WORKERS Gender Identity Not on file Sexual Orientation Not on file Last Filed Vital Signs Vital Sign Reading Time Taken Comments Blood Pressure 160/88 09/08/2009 1:27 PM CROP FARM WORKERS Pulse 72 09/08/2009 1:27 PM CROP FARM WORKERS Temperature - - Respiratory Rate - - Oxygen Saturation - - Inhaled Oxygen Concentration - - Weight 109.8 kg (242 lb) 09/08/2009 1:27 PM CROP FARM WORKERS Height 174 cm (5' 8.5) 09/08/2009 1:27 PM CROP FARM WORKERS Body Mass Index 36.26 09/08/2009 1:27 PM CROP FARM WORKERS Plan of Treatment Health Maintenance Due Date [...] PM CDT Narrative Resulting Agency Comment [facility] [address] [facility] [id number] us Gab Lamar MD LAB - CHEMISTRY ORDERABLES Fi nal Result [facility] INSURANCE BILL [address] [place] [address] from Last 3 Months or Most Recently Relevant to Health Maintenance Insurance MEDICARE U[employer] MANAGED MEDICARE ADV Care Teams Materials Branch Chief Relationship Specialty Start Date End Date Allan Shields DO [address] [facility] [address] [place] [address] PCP - General 02/24/18
--- OUTSIDE RECORDS SUMMARY | 2025-03-22 10:08 | XMS_ITS | Encounter Summary ---
Author Organization [facility] Address [address] [place] [address] Care Team Providers Care Senior Electrical Engineer Name Role Phone Allan Shields DO Primary Care Provider [phone] Encounter Details Date Type Department Care Team (Late st Contact Info) Description 11/14/2021 Lab Requisition [facility] [address] [place] [address] Keli Cota MD [address] [place], [place] [id number] Illness, unspecified Social History Tobacco Use Types Packs/Day Years Used Date Smoking Tobacco: Never Alcohol Use Standard Drinks/Week Comments Yes 2.5 (1 standard drink = 0.6 oz p ure alcohol) Sex and Gender Information Value Date Recorded Sex Assigned at Not on file Legal Sex Male 4:44 AM ENGINEERING SUPERVISOR Gender Identity Not on file Sexual Orientation Not on file documented as of this encounter Plan of Treatment Not on file documented as of this encounter Procedures Procedure Name Priority Date/Time Associated Diagnosis Comments PATH CONSULT ON REFERRED CASE Routine 11/10/2021 1:01 PM ENGINEERING SUPERVISOR Illness, unspecified documented in this encounter Results * PATH CONSULT ON REFERRED CASE (11/10/2021 1:01 PM ENGINEERING SUPERVISOR) Final Diagnosis URINE, VOIDED, THIN PREP, CYTOLOGY (OSC: [id number]; 11/10/2021): - No malignant cells see (TPS Category II, negative for high grade urothelial carcinoma) 11/14/2021 4:04 PM ENGINEERING SUPERVISOR [facility] [address] ENGINEERING SUPERVISOR Microscopic Description and Comment Performed. 11/14/2021 4:04 PM [facility] Clinical History FREQUENCY 11/14/2021 4:04 PM [facility] Materials Received Prepared slide received from [facility] [id number]. All material will be returned. 11/14/2021 4:04 PM [facility] Disclaimer The performance characteristics of all immunohistochemical and indirect immunofluorescence stains (if any) cited in this report were determined by the Histopathology [facility] of [facility]. Some of these tests were developed by [...] the attending (teaching) pathologist. 11/14/2021 4:04 PM [facility] Case Report Surgical Pathology Report Case: [id number] Authorizing Provider: Keli Cota MD Collected: 11/10/2021 01:01 PM Ordering Location: [facility] Received: 11/14/2021 01:01 PM Pathologist: Gali Malik MD Specimen: Slide Consultation 11/14/2021 4:04 PM [facility] Embedded Images 11/14/2021 4:04 PM [facility] Pathology/Cytolo gy SURGICAL PATHOLOGY CONSULTATION AND REPORT ON REFERRED SLIDES PREPARED ELSEWHERE / Unknown 11/10/2021 1:01 PM ENGINEERING SUPERVISOR 11/14/2021 1:01 PM ENGINEERING SUPERVISOR us Keli Cota MD LAB - PATHOLOGY/CYTOLOGY ORDERAB LES Final Result [facility] [address] [place], [place] [id number] [place] [address] documented in this encounter Visit Diagnoses Diagnosis Illness, unspecified documented in this encounter Care Teams Senior Electrical Engineer Relationship Specialty Start Date End Date Allan Shields DO [address] [facility] [address] [place] [address] PCP - General 02/24/18 documented as of this encounter
[2025-03-22 10:45] LABS: Creatinine Urine 120.4 mg/dL
[2025-03-22 10:46] LABS: Total Protein Urine Random < 5 mg/dL; Ur Ttl Prot Creatinine Ratio < 0.04 mg/mg (0-0.20)
[2025-03-22 10:51] LABS: Albumin Level 4.2 g/dL (3.5-5.1); Anion Gap 10 mmol/L (4-12); Blood Urea Nitrogen 25 mg/dL (9-20); Calcium 9.2 mg/dL (8.4-10.2); Carbon Dioxide 23 mmol/L (22-30); Chloride 107 mmol/L (98-107); Estimated Glomerular Filt Rate 43; Glucose 120 mg/dL (65-110); Phosphorus 3.1 mg/dL (2.5-4.5); Potassium 4.4 mmol/L (3.4-5.0); Sodium 140 mmol/L (137-145)
[2025-03-22 11:47] LABS: Complement C3 122 mg/dL (88-165)
[2025-03-23 06:23] LABS: Protein, Total 6.7 g/dL (6.1-8.1)
[2025-03-23 08:33] LABS: Creatinine, Random Urine 120 mg/dL (20-320); Total Prot/Creat ratio mg/mg 0.058 (0.025-0.148); Total Protein/Creatinine Ratio 58 mg/g creat (25-148)
[2025-03-24 13:33] LABS: Anti Glomerular Basement Memb <1.0 AI
[2025-03-24 15:38] LABS: Albumin 3.9 g/dL (3.8-4.8); Alpha 1 Globulin 0.3 g/dL (0.2-0.3); Alpha 2 Globulin 0.8 g/dL (0.5-0.9); Beta 1 Globulin 0.4 g/dL (0.4-0.6); Gamma Globulin 0.9 g/dL (0.8-1.7)
[2025-03-25 11:42] LABS: ANCA Screen NEGATIVE (NEGATIVE)
== END 2025-03-22 09:30 | disposition home or self-care (01) ==
PROVIDERS: PCP Internal Medicine; Referring Provider Internal Medicine Cardiovascular Disease; Visit Provider Internal Medicine Nephrology
DX: N18.32 Chronic kidney disease, stage 3b (principal)
CPT/HCPCS: 36415; 80069; 82570; 83520; 84155; 84156; 84165; 84166; 86036; 86038; 86039; 86160; 86225

== ENCOUNTER 2025-03-31 11:54 | Outpatient (CLI) | payer MEDICARE, OTHER, SELFPAY ==
--- NOTE | ~2025-03-31 | US_ITS ---
EXAM: RENAL ULTRASOUND HISTORY: N18.32 - Chronic kidney disease, stage 3b COMPARISON: None. Reference is made to a CT examination of the abdomen and pelvis dated 05/07/2024 FINDINGS: RIGHT KIDNEY: 10.9 x 6.0 x 5.7 cm. The parenchyma of the right kidney is unremarkable in echogenicity. No hydronephrosis or renal calculi. LEFT KIDNEY: 11.0 x 5.7 x 5.9 cm No hydronephrosis or renal calculi. The parenchyma of the left kidney is unremarkable in echogenicity. BLADDER: Minimally distended, and otherwise unremarkable. IMPRESSION: No hydronephrosis or renal calculi. No sonographic findings to suggest medical renal disease. Reviewed, dictated and finalized at location A.
== END 2025-03-31 11:55 | disposition home or self-care (01) ==
LOC: MICIMG 11:54
PROVIDERS: PCP Internal Medicine; Visit Provider Internal Medicine Nephrology
DX: N18.32 Chronic kidney disease, stage 3b (principal)
CPT/HCPCS: 76775

== ENCOUNTER 2025-05-04 08:22 | Outpatient (CLI) | payer MEDICARE, OTHER, SELFPAY ==
--- NOTE | ~2025-05-04 | XR_ITS ---
XR lumbar spine 2-3V 05/04/2025 08:48 Indication: Back pain Procedure: 4 views lumbar spine Comparison: 03/20/2019 Findings: There is disc narrowing at all lumbar levels. There is advanced multilevel facet hypertroph y. There is grade 1 degenerative spondylolisthesis at L5-S1. There is retrolisthesis at L2-3 and L3-4 . There is dextroscoliosis. No acute fractures identified. Sacral foramen are symmetric. Impression: 1: Severe lumbar spondylosis. Reviewed, dictated and finalized at location A. Impression: 1: Severe lumbar spondylosis.
--- OUTSIDE RECORDS SUMMARY | 2025-05-04 08:30 | XMS_ITS | Encounter Summary ---
Author Organization [facility] Address [address] [place] [address] Care Team Providers Care Yard Person Name Role Phone Boy Urbano MD Primary Care Provider + Encounter Details Date Type Department Care Team (Late st Contact Info) Description 03/24/[address] [facility] [address] [place] [address]. [place] [address] Edwin Garcia MD Social History Tobacco Use Types Packs/Day Years Used Date Smoking Tobacco: Never Assessed Sex and Gender Information Value Date Recorded Sex Assigned at Not on file Legal Sex Male 4:42 AM OILSEED MEAT PRESSER Gender Identity Not on file Sexual Orientation Not on file documented as of this encounter Plan of Treatment Not on file documented as of this encounter Visit Diagnoses Not on filedocumented in this encounter Care Teams Yard Person Relationship Specialty Start Date End Date Boy Urbano MD [address] [place] [id number] PCP - General 12/04/12 10/07/18 documented as of this encounter
--- OUTSIDE RECORDS SUMMARY | 2025-05-04 08:30 | XMS_ITS | Clinical Summary ---
Author Organization [facility] Address [address] [place] [address] Care Team Providers Care Welfare Service Aide Name Role Phone lAlan Shields DO Primary Care Provider [phone] Source Comments [facility],non-owned Affiliates and Associated Physician Practices is amultiple site organization consisting of ambulatory clinics and hospital sitesin [place], [place], [place] and [place]. This disclosure is being madepursuant to the Care Everywhere program and may not contain all information available regarding this patient. Last updated 18.[employer] Allergies No known active allergies Medications * [...] on file Legal Sex Male 4:44 AM MANAGER WAREHOUSE Gender Identity Not on file Sexual Orientation Not on file Last Filed Vital Signs Vital Sign Reading Time Taken Comments Blood Pressure 160/88 09/08/2009 1:27 PM MANAGER WAREHOUSE Pulse 72 09/08/2009 1:27 PM MANAGER WAREHOUSE Temperature - - Respiratory Rate - - Oxygen Saturation - - Inhaled Oxygen Concentration - - Weight 109.8 kg (242 lb) 09/08/2009 1:27 PM MANAGER WAREHOUSE Height 174 cm (5' 8.5) 09/08/2009 1:27 PM MANAGER WAREHOUSE Body Mass Index 36.26 09/08/2009 1:27 PM MANAGER WAREHOUSE Plan of Treatment Health Maintenance Due Date [...] season) 2024 DEPRESSION SCREENING 10/07/2024 INFLUENZA VACCINE (#1) 2025 10/06/2009 Respiratory Syncytial Virus (RSV) Vaccine Pt: or [...] PM CDT Narrative Resulting Agency Comment [facility] [address] [facility] [id number] Gab Lamar MD LAB - CHEMISTRY ORDERABLES Fi nal Result [facility] INSURANCE BILL [address] [place] [address] from Last 3 Months or Most Recently Relevant to Health Maintenance Insurance MEDICARE UHC MANAGED MEDICARE ADV Care Teams Welfare Service Aide Relationship Specialty Start Date End Date Allan Shields DO [address] [facility] [address] [place] [address] PCP - General 02/24/18
--- OUTSIDE RECORDS SUMMARY | 2025-05-04 08:30 | XMS_ITS | Referral Summary ---
Author Organization [facility] Address [address] [place] [address] Care Team Providers Care Ratoprinter Name Role Phone ChikaAndreas boyd Primary Care Provider [phone] Encounters Date Type Department Care Team Description 03/30/2025 Telephone [facility] Cardiology [address] [facility] Medicine 8th [place] [address] [place] [id number] Daniel Cohen MD Lab Results 03/22/2025 Orders Only [facility] Scanning, Provider 03/16/2025 1:15 PM CDT Office Visit [facility] Cardiology [facility] [facility] 8th [place] [address] [place] [address] Daniel Cohen MD Primary hypertension [...] 2-100 gram-mcg tablet,chewable Take by mouth Active hydroxychloroqu ine (PLAQUENIL) 200 mg tablet [...] daily 90 tablet 3 5 Active lisinopriL (PRINIVIL,ZESTR IL) 40 mg tablet Take 1 tablet (40 mg total) by mouth daily 90 tablet 3 5 Active Active Problems Problem Noted Date Diagnosed [...] 12/13/2023 Assessment & Plan (12/13/2023 2:36 PM FAMILY WORKER): Reporting increased VICKERS and significant fatigue after [...] up to 25 g daily -Recommended starting hwwf-pzj-xzkbnnm probiotic like align or ME911. -Recommended wet wipes instead of toilet tissue to help with cleanliness Assessment & Plan (04/16/2024 12:26 PM CDT): Chronic diarrhea since a trip to [place] November 2023. Stool culture and C diff [...] cholestyramine 4 g p.o. b.i.d. -recommend starting zsef-qol-alcjjio probiotics daily -we will order labs and [...] lung problem. He follows with Cardiology at [facility]. I will obtain BNP. [...] therapy. Assessment & Plan (12/13/2023 2:27 PM FAMILY WORKER): Chest CT in 2017 measuring at 4.1 [...] fatigue. Assessment & Plan (12/13/2023 2:40 PM FAMILY WORKER): Hypertension with recent hypotension following pneumonia. Has [...] disease) 013 Overview (04/14/2021): Repeat us stable 5/14 Depressive disorder, not elsewhere classified Obesity, unspecified 08/07/2010 Essential hypertension, benign 03/24/2010 ANGEL (obstructive sleep apnea) Assessment & Plan (10/08/2024 9:27 AM FAMILY WORKER): The patient continue to wear his CPAP at 10 cm water pressure while sleeping. His DME is [facility] Assessment & Plan (10/08/2023 10:57 AM FAMILY WORKER): Patient will continue CPAP therapy at 10 cm water pressure. DME [facility] Assessment & Plan (08/14/2022 11:32 AM FAMILY WORKER): Patient will continue CPAP therapy at 10 [...] states he is using the so clean tack cleaner. The patient was recommended to inspect [...] Tobacco: Never Tobacco Cessation:Counseling Given: Not Answered [facility] Utilities Answer Date Recorded In the past 12 months has [employer], gas, oil, or water company [...] often do you attend chur ch or confucianist services? Never 11/25/2023 Do you belong to any clubs o r organizations such as catholic groups, unions, fraternal or athletic groups, [...] medical appointments or from getting medications? No 02/1 06/2024 In the past 12 months, has l [...] on file Legal Sex Male 1:43 AM FAMILY WORKER Gender Identity Not on file Sexual Orientation Not on file Last Filed Vital Signs Vital Sign Reading Time Taken Comments Blood Pressure 112/71 03/16/2025 1:17 PM CDT Pulse 74 03/16/2025 1:17 PM CDT Temperature 36.4 C (97.5 F) 10/08/2024 8:35 AM FAMILY WORKER Respiratory Rate 18 10/08/2024 8:35 AM FAMILY WORKER Oxygen Saturation 97% 03/16/2025 1:17 PM CDT Inhaled Oxygen Concentration - - Weight 110.1 kg (242 lb 12.8 oz) 03/16/2025 1:17 PM CDT Height 174 cm (5' 8.5) 03/16/2025 1:17 PM CDT Body Mass Index 36.38 03/16/2025 1:17 PM CDT Plan of Treatment Not on file Procedures Procedure Name Priority Date/Time Associated Diagnosis Comments SCAN - LABS 03/22/2025 from Last 3 Months Results * SCAN - LABS (03/22/2025) us Provider Scanning Edited Result - Final from Last 3 Months Insurance MEDICARE MEDICARE Member Subscriber Plan / Payer (Ef fective 2015-Present) Name:Aj Sosa Member ID:[id number] Relation to Subscriber:Self Name:Aj Sosa Subscriber ID:[id number] Payer ID:[id number] Group ID:Not on file Type:MEDICARE TRADITIONAL Address: [place] [phone] [facility] MEDICARE [employer] Advance Directives For more information, please contact: [phone] * Full Code (Latest Code Status on File) Date Activated Date Inactivated Comments 11/25/2023 12:11 AM 11/26/2023 5:35 PM Care Teams Ratoprinter Relationship Specialty Start Date End Date Andreas Farr DO PCP - General Internal Medicine 02/26/24
--- OUTSIDE RECORDS SUMMARY | 2025-05-04 08:30 | XMS_ITS | Clinical Summary ---
Author Organization [facility] Address [address], [place] [address] Phone Care Team Providers Care Pilot Plant Operator Helper Name Role Phone Unavailable Primary Care Provider [...] Comments Blood Pressure 136/72 08/14/2017 12:01 AM TRANSACTION COORDINATOR Sitting, Right Pulse - - Temperature 35.9 C (96.7 F) 08/14/2017 12:01 AM TRANSACTION COORDINATOR Respiratory Rate - - Oxygen Saturation - - Inhaled Oxygen Concentration - - Weight 108 kg (238 lb) 08/14/2017 12:01 AM TRANSACTION COORDINATOR Height 175.3 cm (5' 9) 08/14/2017 12:0 1 AM TRANSACTION COORDINATOR Body Mass Index 35.15 08/14/2017 12:01 AM TRANSACTION COORDINATOR Plan of Treatment Not on file
--- OUTSIDE RECORDS SUMMARY | 2025-05-04 08:30 | XMS_ITS | Data Portability ---
Author Organization [place] - [facility] [place], Main Office Address [address] [place] [address] Care Team Providers Care Stage Electrician Helper Name Role Phone IMANI WELLS Primary Care Provider IMANI WELLS Referring Provider [phone] Assessment Encounter Date Assessment Date Assessment LastModified [...] well. He is going to start taking kxjw-wpr-rhmekxh anti-inflammatori es, ibuprofen 600 mg b.i.d. until the injection works well for him. After that he can use it intermittently depending on symptoms and activities. He can repeat cortisone injections often as every 3 months. We will plan on seeing him back as needed. 20 minutes was spent treatment patient more than half of this in [id number] conversation Not available 04/18/2023 13:30:50 Plan of Treatment Reminders Order Date Submit Date Provider Last Modified By Organization Details Last Modified Time Details Appointments None recorded. Lab None recorded. Referral None recorded. Procedures injection/a spiration joint/bursa (PROC) 2022 023 In-Office Order, Internal Use Only DO Not Attach Compendium DO Not Attach Compendium, Do Not Delete/merge, [id number] 09:25:44 Surgeries None recorded. Imaging XR, knee 2022 023 [email or web address] 3 [facility], [facility]2 [facility], [place], [address], 13:45:37 Medication Orders bupivacaine HCl 0.5 % (5 mg/mL) injection solution 2022 023 [email or web address] 3 Not available 13:11:50 Kenalog 10 mg/mL suspension for injection 2022 023 [email or web address] 3 Not available 13:11:51 Patient TargetsNo targets recorded. Patient InstructionsNo instructions recorded. Reason for Referral None Reported. Results Created Date Observation Date Name Description Value Unit Range Abnormal Flag Note LastModifiedBy Organization Detail LastModifiedTime 04/21/20 21 XR, knee No observ ation record ed. [id number] [facility] [address], [place], [address], 12/05/2022 20:58:20 04/18/20 23 XR, knee No observ ation record ed. [email or web address] [facility] [address], [place], [address], 04/18/2023 13:27:55 Result Notes None recorded. Problems Name Problem SNOMED Code Status Onset Date Resolution Date Notes Provider Name and Address Organization Details Recorded Time Pain of left knee joint [id number] Active 2022 PHYLLIS Vickers, [place] [facility] 12:30:03 Problem Notes None recorded. Procedures Surgical History Date Name Laterality Status Provider Name and Address Organization Details Recorded Time hernia repair completed Not Available [facility] 12/05/2022 20:55:58 Rotator cuff surgery completed Not Available [facility] 12/05/2022 20:55:58 Imaging Results None recorded. Procedure [...] 2 mg by injection route. 2022 active [facility]: 0003- [id number] 20 Not Available [...] Updated DateTime 04/21/2021 35.2 kg/m2 170.18 cm 982609.28 g Not Available [facility] 12/05/2022 20:56:03 Social History None recorded. Functional Status Question Answer Note LastModified by Organization D etails LastModified Time What is your level of alcohol consumption? None [email or web address] Information not available 04/18/2023 Mental Status None recorded. Family History Relationship Description Onset Age of this Age Resolved Age Notes LastModified by Organization Details LastModified Time Father Hypertensive disorder [id number] Not available 12/05/2022 20:55:58 Father Heart disease [email or web address] Not available 2022 12:29:37 Medical History Condition [...] HAVE YOU BEEN HOSPITALIZED OR SEEN IN [facility] IN THE PAST YEAR ? [...] SNOMED-CT Code Diagnosis ICD10 Code Diagnosis Note [id number] Aj Dumont MD [facility] [address] [facility] [address] [place] [address] 04/21/2021 00:00:00 04/24/2021 14:08:09 [id number] MD YO Velasco[facility] [place] [address] [place] [address] 04/18/2023 11:49:55 04/18/2023 13:45:37 Pain of left knee joint [id number] 95447 M25.562 Health Concerns Section Related Observation LastModified by Organization Detai ls LastModified Time None Recorded Concern Status LastModified by Organization Details LastModified Time None Recorded Advance Directives Directive None Recorded Payers Insurance Date Sequence Insurance Name Policy Number Policy Bass Covered Member ID Bass Member ID Guarantor Name 04/18/2023 1 [place] Aj Sosa [id number] Aj Sosa 04/23/2023 2 AARP (MEDICARE SUPPLEMENT) Aj Sosa [id number] Aj Sosa
--- OUTSIDE RECORDS SUMMARY | 2025-05-04 08:30 | XMS_ITS | Encounter Summary ---
Author Organization [employer] Address [address] [place] [address] Care Team Providers Care Facility Maintenance Manager Name Role Phone Boy Urbano MD Primary Care Provider + Encounter Details Date Type Department Care Team (Late st Contact Info) Description 10/21/2002 Outpatient [facility] [address] [place] [address]. [place] [address] Edwin Garcia MD Social History Tobacco Use Types Packs/Day Years Used Date Smoking Tobacco: Never Assessed Sex and Gender Information Value Date Recorded Sex Assigned at Not on file Legal Sex Male 4:42 AM CHEESE SPECIALIST Gender Identity Not on file Sexual Orientation Not on file documented as of this encounter Plan of Treatment Not on file documented as of this encounter Visit Diagnoses Not on filedocumented in this encounter Care Teams Facility Maintenance Manager Relationship Specialty Start Date End Date Boy Urbano MD [address] [place] [phone] PCP - General 12/04/12 10/07/18 documented as of this encounter
--- OUTSIDE RECORDS SUMMARY | 2025-05-04 08:30 | XMS_ITS | Encounter Summary ---
Author Organization [employer] Address [address] [place] [address] Care Team Providers Care Nurses Superintendent Name Role Phone Boy Urbano MD Primary Care Provider + Encounter Details Date Type Department Care Team (Late st Contact Info) Description 09/11/2002 Outpatient [facility] [address] [place] [address] Cornell Resendez MD [address] [facility] [address] [place] [address] Social History Tobacco Use Types Packs/Day Years Used Date Smoking Tobacco: Never Assessed Sex and Gender Information Value Date Recorded Sex Assigned at Not on file Legal Sex Male 4:42 AM HAND TOOL LAPPER Gender Identity Not on file Sexual Orientation Not on file documented as of this encounter Plan of Treatment Not on file documented as of this encounter Visit Diagnoses Not on filedocumented in this encounter Care Teams Nurses Superintendent Relationship Specialty Start Date End Date Boy Urbano MD [address] [place] [phone] PCP - General 12/04/12 10/07/18 documented as of this encounter
--- OUTSIDE RECORDS SUMMARY | 2025-05-04 08:30 | XMS_ITS | Clinical Summary ---
Author Organization [facility] Address [address] [place] [address] Care Team Providers Care Rack Worker Name Role Phone ChikaAndreas Primary Care Provider [phone] Allergies No known active allergies Medications glucosamine-cho [...] Assessment & Plan (12/13/2023 2:36 PM WOOD TOOL MAKER): Reporting increased VICKERS and significant fatigue after [...] up to 25 g daily -Recommended starting jpio-boz-ydbjhyc probiotic like Campaign Monitor or ScriptRock. -Recommended wet wipes instead of toilet tissue to help with cleanliness Assessment & Plan (04/16/2024 12:26 PM CDT): Chronic diarrhea since a trip to [place] November 2023. Stool culture and C diff [...] cholestyramine 4 g p.o. b.i.d. -recommend starting qldd-kjv-wauvohh probiotics daily -we will order labs and [...] lung problem. He follows with Cardiology at [facility]. I will obtain BNP. Continue his [...] Assessment & Plan (12/13/2023 2:27 PM WOOD TOOL MAKER): Chest CT in 2017 measuring at 4.1 [...] Assessment & Plan (12/13/2023 2:40 PM WOOD TOOL MAKER): Hypertension with recent hypotension following pneumonia. Has [...] Assessment & Plan (10/08/2024 9:27 AM WOOD TOOL MAKER): The patient continue to wear his CPAP at 10 cm water pressure while sleeping. His DME is [facility] Assessment & Plan (10/08/2023 10:57 AM WOOD TOOL MAKER): Patient will continue CPAP therapy at 10 cm water pressure. DME [facility] Assessment & Plan (08/14/2022 11:32 AM WOOD TOOL MAKER): Patient will continue CPAP therapy at 10 [...] states he is using the so clean welt stitch cleaner. The patient was recommended to inspect [...] Type Department Care Team Description 03/30/2025 Telephone [facility] Cardiology [address] [place] [address] Advanced Medicine 8th [place] [address] [place] [address] Daniel Cohen MD Lab Results 03/22/2025 Orders Only [facility] Scanning, Provider 03/16/2025 1:15 PM CDT Office Visit [facility] Cardiology [address] [place] [address] 8th [place] [address] [place] [address] Daniel Cohen MD Primary hypertension (Primary Dx); [...] Tobacco: Never Tobacco Cessation:Counseling Given: Not Answered [facility] Utilities Answer Date Recorded In the past 12 months has e electric, gas, oil, or water company [...] often do you attend chur ch or tenriism services? Never 11/25/2023 Do you belong to any clubs o r organizations such as scientologist groups, unions, fraternal or athletic groups, or [...] file Legal Sex Male 1:43 AM WOOD TOOL MAKER Gender Identity Not on file Sexual Orientation Not on file Obstetrics History Last Filed Vital Signs Vital Sign Reading Time Taken Comments Blood Pressure 112/71 03/16/2025 1:17 PM CDT Pulse 74 03/16/2025 1:17 PM CDT Temperature 36.4 C (97.5 F) 10/08/2024 8:35 AM WOOD TOOL MAKER Respiratory Rate 18 10/08/2024 8:35 AM WOOD TOOL MAKER Oxygen Saturation 97% 03/16/2025 1:17 PM CDT [...] Fall Risk Assessment 11/26/2024 11/26/2023 Influenza Vaccine (#1) 2025 3, 06/17/2020, 07/01/2019, Additional history exists Pneumococcal vaccine 65+ Completed 020, 09/12/2015, 08/07/2010, Additional history exists Procedures Procedure Name Priority Date/Time Associated Diagnosis Comments SCAN - LABS 03/22/2025 from Last 3 Months Results * SCAN - LABS (03/22/2025) us Provider Scanning Edited Result - Final from Last 3 Months Insurance MEDICARE MEDICARE [facility] MEDICARE [facility] Advance Directives For more information, please contact: [phone] * Full Code (Latest Code Status on File) Date Activated Date Inactivated Comments 11/25/2023 12:11 AM 11/26/2023 5:35 PM Care Teams Rack Worker Relationship Specialty Start Date End Date Andreas Farr DO PCP - General Internal Medicine 02/26/24
--- OUTSIDE RECORDS SUMMARY | 2025-05-04 08:30 | XMS_ITS | Encounter Summary ---
Author Organization [employer] Address [address] [place] [address] Care Team Providers Care Computer Game Programmer Name Role Phone Boy Urbano MD Primary Care Provider + Encounter Details Date Type Department Care Team (Late st Contact Info) Description 08/26/2006 Outpatient [facility] [address] [place] [address]. [place] [address] Edwin Garcia MD Social History Tobacco Use Types Packs/Day Years Used Date Smoking Tobacco: Never Assessed Sex and Gender Information Value Date Recorded Sex Assigned at Not on file Legal Sex Male 4:42 AM PRACTICE BILLING ASSOCIATE Gender Identity Not on file Sexual Orientation Not on file documented as of this encounter Plan of Treatment Not on file documented as of this encounter Visit Diagnoses Not on filedocumented in this encounter Care Teams Computer Game Programmer Relationship Specialty Start Date End Date Boy Ubrano MD [address] [place] [phone] PCP - General 12/04/12 10/07/18 documented as of this encounter
--- OUTSIDE RECORDS SUMMARY | 2025-05-04 08:30 | XMS_ITS | Encounter Summary ---
Author Organization [facility] Address [address] [place] [address] Care Team Providers Care Technical Sales Engineer Name Role Phone Allan Shields DO Primary Care Provider [phone] Encounter Details Date Type Department Care Team (Late st Contact Info) Description 11/14/2021 Lab Requisition [facility] [address] [place] [address] Keli Cota MD [address] [place], [place] [id number] Illness, unspecified Social History Tobacco Use Types Packs/Day Years Used Date Smoking Tobacco: Never Alcohol Use Standard Drinks/Week Comments Yes 2.5 (1 standard drink = 0.6 oz p ure alcohol) Sex and Gender Information Value Date Recorded Sex Assigned at Not on file Legal Sex Male 4:44 AM COORDINATOR OF EVALUATION Gender Identity Not on file Sexual Orientation Not on file documented as of this encounter Plan of Treatment Not on file documented as of this encounter Procedures Procedure Name Priority Date/Time Associated Diagnosis Comments PATH CONSULT ON REFERRED CASE Routine 11/10/2021 1:01 PM COORDINATOR OF EVALUATION Illness, unspecified documented in this encounter Results * PATH CONSULT ON REFERRED CASE (11/10/2021 1:01 PM COORDINATOR OF EVALUATION) Final Diagnosis URINE, VOIDED, THIN PREP, CYTOLOGY (OSC: [id number]; 11/10/2021): - No malignant cells see (TPS Category II, negative for high grade urothelial carcinoma) 11/14/2021 4:04 PM COORDINATOR OF EVALUATION [facility] COORDINATOR OF EVALUATION Microscopic Description and Comment Performed. 11/14/2021 4:04 PM [facility] Clinical History FREQUENCY 11/14/2021 4:04 PM [facility] Materials Received Prepared slide received from [facility] [id number]. All material will be returned. 11/14/2021 4:04 PM [facility] Disclaimer The performance characteristics of all immunohistochemical and indirect immunofluorescence stains (if any) cited in this report were determined by the Histopathology Laboratory of [facility]. Some of these tests were developed [...] the attending (teaching) pathologist. 11/14/2021 4:04 PM [facility] Case Report Surgical Pathology Report Case: [id number] Authorizing Provider: Keli Cota MD Collected: 11/10/2021 01:01 PM Ordering Location: [facility] Received: 11/14/2021 01:01 PM Pathologist: Gali Malik MD Specimen: Slide Consultation 11/14/2021 4:04 PM [facility] Embedded Images 11/14/2021 4:04 PM [facility] Pathology/Cytolo gy SURGICAL PATHOLOGY CONSULTATION AND REPORT ON REFERRED SLIDES PREPARED ELSEWHERE / Unknown 11/10/2021 1:01 PM COORDINATOR OF EVALUATION 11/14/2021 1:01 PM COORDINATOR OF EVALUATION us Keli Cota MD LAB - PATHOLOGY/CYTOLOGY ORDERAB LES Final Result [facility] [address] [place], [place] [id number] [place] [address] documented in this encounter Visit Diagnoses Diagnosis Illness, unspecified documented in this encounter Care Teams Technical Sales Engineer Relationship Specialty Start Date End Date Allan Shields DO [address] [facility] [address] [place] [address] PCP - General 02/24/18 documented as of this encounter
--- OUTSIDE RECORDS SUMMARY | 2025-05-04 08:30 | XMS_ITS | Clinical Summary ---
Author Organization [facility] Address [address] [place] [address] Care Team Providers Care Molder Meat Name Role Phone Unavailable Primary Care Provider [...] migh t be different from the original. Bundle Collector-Dr. Demetrio Parekh ([place]) Problem Noted Date Diagnosed Date Neuropathy 01/10/2016 [...] 02/25/2014 Other and unspecified hyperlipidemia 08/07/2010 11/18/2014 Encounters Date Type Department Care Team Description 03/19/2025 Abstract [facility] Orthopedic Surgery - [address] [place] [address] Eliecer Ibarra DO from Last 3 Months Immunizations Immunization Administration Dates Next Due (ADACEL/BOOSTRIX)(10 [...] on file Legal Sex Male 4:42 AM SECURITY ASSOCIATE Gender Identity Not on file Sexual [...] 50+ YEA RS (2 of 2 - PCV20 or PCV21) 09/12/2016 09/12/2015, 08/07/2010 COLORECTAL SCREENING 08/02/2020 08/02/2010, 08/02/20 10 Colorectal Cancer Screening 08/02/2020 DTAP/TDAP/TD VACCINES (2 - T d or Tdap) 08/09/2021 08/09/2011 INFLUENZA VACCINE (#1) 2025 5, 09/01/2013, 07/02/2012, Additional history exists Procedures [...]
--- OUTSIDE RECORDS SUMMARY | 2025-05-04 08:30 | XMS_ITS | Encounter Summary ---
Author Organization [employer] Address [address] [place] [address] Care Team Providers Care Senior Managing Director Name Role Phone Boy Urbano MD Primary Care Provider + Encounter Details Date Type Department Care Team (Late st Contact Info) Description 09/13/2002 Outpatient [facility] [address] [place] [address] Social History Tobacco Use Types Packs/Day Years Used Date Smoking Tobacco: Never Assessed Sex and Gender Information Value Date Recorded Sex Assigned at Not on file Legal Sex Male 4:42 AM SENIOR IT RECRUITER Gender Identity Not on file Sexual Orientation Not on file documented as of this encounter Plan of Treatment Not on file documented as of this encounter Visit Diagnoses Not on filedocumented in this encounter Care Teams Senior Managing Director Relationship Specialty Start Date End Date Boy Urbano MD [address] [place] [phone] PCP - General 12/04/12 10/07/18 documented as of this encounter
== END 2025-05-04 08:23 | disposition home or self-care (01) ==
PROVIDERS: PCP Internal Medicine; Visit Provider Internal Medicine
DX: M43.06 Spondylolysis, lumbar region (principal)
CPT/HCPCS: 72100

== ENCOUNTER 2025-07-19 09:15 | Outpatient (CLI) | payer MEDICARE, OTHER, SELFPAY ==
--- OUTSIDE RECORDS SUMMARY | 2025-07-19 09:44 | XMS_ITS | Encounter Summary ---
Author Organization [employer] Address [address] [place] [address] Care Team Providers Care Tiedown Operator Name Role Phone Boy Urbano MD Primary Care Provider + Encounter Details Date Type Department Care Team (Late st Contact Info) Description 09/13/2002 Outpatient [facility] [address] [place] [address] Social History Tobacco Use Types Packs/Day Years Used Date Smoking Tobacco: Never Assessed Sex and Gender Information Value Date Recorded Sex Assigned at Not on file Legal Sex Male 4:42 AM TRAIN ATTENDANT Gender Identity Not on file Sexual Orientation Not on file documented as of this encounter Plan of Treatment Not on file documented as of this encounter Visit Diagnoses Not on filedocumented in this encounter Care Teams Tiedown Operator Relationship Specialty Start Date End Date Boy Urbano MD [address] [place] [phone] PCP - General 12/04/12 10/07/18 documented as of this encounter
--- OUTSIDE RECORDS SUMMARY | 2025-07-19 09:44 | XMS_ITS | Encounter Summary ---
Author Organization [employer] Address [address] [place] [address] Care Team Providers Care Brake Rider Name Role Phone Boy Urbano MD Primary Care Provider + Encounter Details Date Type Department Care Team (Late st Contact Info) Description 10/21/2002 Outpatient [facility] [address] [place] [address]. [place] [address] Edwin Garcia MD Social History Tobacco Use Types Packs/Day Years Used Date Smoking Tobacco: Never Assessed Sex and Gender Information Value Date Recorded Sex Assigned at Not on file Legal Sex Male 4:42 AM JUVENILE JUSTICE OFFICER Gender Identity Not on file Sexual Orientation Not on file documented as of this encounter Plan of Treatment Not on file documented as of this encounter Visit Diagnoses Not on filedocumented in this encounter Care Teams Brake Rider Relationship Specialty Start Date End Date Boy Urbano MD [address] [place] [phone] PCP - General 12/04/12 10/07/18 documented as of this encounter
--- OUTSIDE RECORDS SUMMARY | 2025-07-19 09:44 | XMS_ITS | Encounter Summary ---
Author Organization [employer] Address [address] [place] [address] Care Team Providers Care Geographic Information System Surveyor Name Role Phone Boy Urbano MD Primary Care Provider + Encounter Details Date Type Department Care Team (Late st Contact Info) Description 08/26/2006 Outpatient [facility] [address] [place] [address]. [place] [address] Edwin Garcia MD Social History Tobacco Use Types Packs/Day Years Used Date Smoking Tobacco: Never Assessed Sex and Gender Information Value Date Recorded Sex Assigned at Not on file Legal Sex Male 4:42 AM DIE TRIPPER Gender Identity Not on file Sexual Orientation Not on file documented as of this encounter Plan of Treatment Not on file documented as of this encounter Visit Diagnoses Not on filedocumented in this encounter Care Teams Geographic Information System Surveyor Relationship Specialty Start Date End Date Boy Urbano MD [address] [place] [phone] PCP - General 12/04/12 10/07/18 documented as of this encounter
--- OUTSIDE RECORDS SUMMARY | 2025-07-19 09:44 | XMS_ITS | Encounter Summary ---
Author Organization [employer] Address [address] [place] [address] Care Team Providers Care Charge Account Authorizer Name Role Phone Boy Urbano MD Primary Care Provider + Encounter Details Date Type Department Care Team (Late st Contact Info) Description 09/11/2002 Outpatient [facility] [address] [place] [address] Cornell Resendez MD [address] [facility] [address] [place] [address] Social History Tobacco Use Types Packs/Day Years Used Date Smoking Tobacco: Never Assessed Sex and Gender Information Value Date Recorded Sex Assigned at Not on file Legal Sex Male 4:42 AM ASBESTOS REMOVAL SUPERVISOR Gender Identity Not on file Sexual Orientation Not on file documented as of this encounter Plan of Treatment Not on file documented as of this encounter Visit Diagnoses Not on filedocumented in this encounter Care Teams Charge Account Authorizer Relationship Specialty Start Date End Date Boy Urbano MD [address] [place] [phone] PCP - General 12/04/12 10/07/18 documented as of this encounter
--- OUTSIDE RECORDS SUMMARY | 2025-07-19 09:44 | XMS_ITS | Encounter Summary ---
Author Organization [facility] Address [address] [place] [address] Care Team Providers Care Family Resource Coordinator Name Role Phone Allan Shields DO Primary Care Provider [phone] Encounter Details Date Type Department Care Team (Late st Contact Info) Description 11/14/2021 Lab Requisition [facility] [address] [place] [address] Keli Cota MD [address] [place], [place] [id number] Illness, unspecified Social History Tobacco Use Types Packs/Day Years Used Date Smoking Tobacco: Never Alcohol Use Standard Drinks/Week Comments Yes 2.5 (1 standard drink = 0.6 oz p ure alcohol) Sex and Gender Information Value Date Recorded Sex Assigned at Not on file Legal Sex Male 4:44 AM EDITORIAL CARTOONIST Gender Identity Not on file Sexual Orientation Not on file documented as of this encounter Plan of Treatment Not on file documented as of this encounter Procedures Procedure Name Priority Date/Time Associated Diagnosis Comments PATH CONSULT ON REFERRED CASE Routine 11/10/2021 1:01 PM EDITORIAL CARTOONIST Illness, unspecified documented in this encounter Results * PATH CONSULT ON REFERRED CASE (11/10/2021 1:01 PM EDITORIAL CARTOONIST) Final Diagnosis URINE, VOIDED, THIN PREP, CYTOLOGY (OSC: [id number]; 11/10/2021): - No malignant cells see (TPS Category II, negative for high grade urothelial carcinoma) 11/14/2021 4:04 PM EDITORIAL CARTOONIST [facility] [address] EDITORIAL CARTOONIST Microscopic Description and Comment Performed. 11/14/2021 4:04 PM [facility] Clinical History FREQUENCY 11/14/2021 4:04 PM [facility] Materials Received Prepared slide received from [facility] [id number]. All material will be returned. 11/14/2021 4:04 PM [facility] Disclaimer The performance characteristics of all immunohistochemical and indirect immunofluorescence stains (if any) cited in this report were determined by the Histopathology [facility] of [facility]. Some of these tests were [...] the attending (teaching) pathologist. 11/14/2021 4:04 PM [facility] Case Report Surgical Pathology Report Case: [id number] Authorizing Provider: Keli Cota MD Collected: 11/10/2021 01:01 PM Ordering Location: [facility] Received: 11/14/2021 01:01 PM Pathologist: Gali Malik MD Specimen: Slide Consultation 11/14/2021 4:04 PM [facility] Embedded Images 11/14/2021 4:04 PM [facility] Pathology/Cytolo gy SURGICAL PATHOLOGY CONSULTATION AND REPORT ON REFERRED SLIDES PREPARED ELSEWHERE / Unknown 11/10/2021 1:01 PM EDITORIAL CARTOONIST 11/14/2021 1:01 PM EDITORIAL CARTOONIST us Keli Cota MD LAB - PATHOLOGY/CYTOLOGY ORDERAB LES Final Result [facility] [address] [place], [place] [address] [place] [address] documented in this encounter Visit Diagnoses Diagnosis Illness, unspecified documented in this encounter Care Teams Family Resource Coordinator Relationship Specialty Start Date End Date Allan Shields DO [address] [place] [address] PCP - General 02/24/18 documented as of this encounter
--- OUTSIDE RECORDS SUMMARY | 2025-07-19 09:44 | XMS_ITS | Encounter Summary ---
Author Organization [facility] Address [address] [place] [address] Care Team Providers Care Panelbeater Name Role Phone Boy Urbano MD Primary Care Provider + Encounter Details Date Type Department Care Team (Late st Contact Info) Description 03/24/2003 Outpatient [facility] [address] [place] [address]. [place] [address] Edwin Garcia MD Social History Tobacco Use Types Packs/Day Years Used Date Smoking Tobacco: Never Assessed Sex and Gender Information Value Date Recorded Sex Assigned at Not on file Legal Sex Male 4:42 AM RECEIVING CHECKER Gender Identity Not on file Sexual Orientation Not on file documented as of this encounter Plan of Treatment Not on file documented as of this encounter Visit Diagnoses Not on filedocumented in this encounter Care Teams Panelbeater Relationship Specialty Start Date End Date Boy Urbano MD [address] [place] [id number] PCP - General 12/04/12 10/07/18 documented as of this encounter
--- OUTSIDE RECORDS SUMMARY | 2025-07-19 09:44 | XMS_ITS | Clinical Summary ---
Author Organization [facility] Address [address], [place] [address] Phone Care Team Providers Care Commutator Undercutter Name Role Phone Unavailable Primary Care Provider [...] Comments Blood Pressure 136/72 08/14/2017 12:01 AM PAY PER CLICK STRATEGIST Sitting, Right Pulse - - Temperature 35.9 C (96.7 F) 08/14/2017 12:01 AM PAY PER CLICK STRATEGIST Respiratory Rate - - Oxygen Saturation - - Inhaled Oxygen Concentration - - Weight 108 kg (238 lb) 08/14/2017 12:01 AM PAY PER CLICK STRATEGIST Height 175.3 cm (5' 9) 08/14/2017 12:0 1 AM PAY PER CLICK STRATEGIST Body Mass Index 35.15 08/14/2017 12:01 AM PAY PER CLICK STRATEGIST Plan of Treatment Not on file
--- OUTSIDE RECORDS SUMMARY | 2025-07-19 09:44 | XMS_ITS | Clinical Summary ---
Author Organization [facility] Address [address] [place] [address] Care Team Providers Care Semiautomatic Taper Operator Name Role Phone ChikaAndreas Primary Care Provider [phone] Allergies No known active allergies Medications glucosamine-cho [...] 12/13/2023 Assessment & Plan (12/13/2023 2:36 PM TEMPORARY DATA ENTRY CLERK): Reporting increased VICKERS and significant fatigue after [...] up to 25 g daily -Recommended starting qbac-oaz-bcqupuu probiotic like [employer] or [employer]. -Recommended wet wipes instead of toilet tissue to help with cleanliness Assessment & Plan (04/16/2024 12:26 PM CDT): Chronic diarrhea since a trip to [place] November 2023. Stool culture and C diff [...] cholestyramine 4 g p.o. b.i.d. -recommend starting lnhs-kji-wexgwba probiotics daily -we will order labs and [...] problem. He follows with Cardiology at [facility]. I will obtain BNP. Continue his antihypertensive [...] therapy. Assessment & Plan (12/13/2023 2:27 PM TEMPORARY DATA ENTRY CLERK): Chest CT in 2017 measuring at 4.1 [...] fatigue. Assessment & Plan (12/13/2023 2:40 PM TEMPORARY DATA ENTRY CLERK): Hypertension with recent hypotension following pneumonia. Has [...] apnea) Assessment & Plan (10/08/2024 9:27 AM TEMPORARY DATA ENTRY CLERK): The patient continue to wear his CPAP at 10 cm water pressure while sleeping. His DME is [facility] Assessment & Plan (10/08/2023 10:57 AM TEMPORARY DATA ENTRY CLERK): Patient will continue CPAP therapy at 10 cm water pressure. DME [facility] Assessment & Plan (08/14/2022 11:32 AM TEMPORARY DATA ENTRY CLERK): Patient will continue CPAP therapy at 10 [...] states he is using the so clean lamp cleaner street light. The patient was recommended to inspect his [...] Encounters Date Type Department Care Team Description 07/05/2025 Telephone [facility] Cardiology [facility] Advanced [address] [place] [address] [place] [address] Daniel Cohen MD 06/25/2025 Telephone [facility] Cardiology [facility] Advanced Medicine [facility] [place] [address] [place] [address] TafoyaShawn spenceron Bp readings 05/04/2025 [facility] Cardiology [address] [place] [address] [place] [address] [place] [address] Daniel Cohen MD cardiac clearance from Last 3 Months Immunizations Immunization Administration [...] of congestive heart failure - (Added by FREDY Oconnor) Relation Name Status Comments Father Social History Tobacco Use Types Packs/Day Years Used Date Smoking Tobacco: Never Smokeless Tobacco: Never Tobacco Cessation:Counseling Given: Not Answered [facility] Utilities Answer Date Recorded In the past 12 months has th e electric, gas, oil, or water company threatened to shut off services in your home? No 11/25/2023 Social Connection and Isolation Panel Answer Date Recorded In a typical week, how many times do you talk on the phone with family, friends, or neighbors? More than three times a week 11/25/2023 How often do you get togethe r with friends or relatives? More than three times a week 11/25/2023 How often do you attend chur ch or mu-ism services? 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 Gender Identity Not on file Sexual Orientation Not on file Obstetrics History Last Filed Vital Signs Vital Sign Reading Time Taken Comments Blood Pressure 112/71 03/16/2025 1:17 PM CDT Pulse 74 03/16/2025 1:17 PM CDT Temperature 36.4 C (97.5 F) 10/08/2024 8:35 AM TEMPORARY DATA ENTRY CLERK Respiratory Rate 18 10/08/2024 8:35 AM TEMPORARY DATA ENTRY CLERK Oxygen Saturation 97% 03/16/2025 1:17 PM CDT [...] Completed 020, 09/12/2015, 08/07/2010, Additional history exists Insurance MEDICARE MEDICARE [facility] [place] [address] MEDICARE [facility] Advance Directives For more information, please contact: [phone] * Full Code (Latest Code Status on File) Date Activated Date Inactivated Comments 11/25/2023 12:11 AM 11/26/2023 5:35 PM Care Teams Semiautomatic Taper Operator Relationship Specialty Start Date End Date Andreas Farr DO PCP - General Internal Medicine 02/26/24
--- OUTSIDE RECORDS SUMMARY | 2025-07-19 09:44 | XMS_ITS | Clinical Summary ---
Author Organization [facility] Address [address] [place] [address] Care Team Providers Care Commercial Lines Account Assistant Name Role Phone Unavailable Primary Care Provider [...] migh t be different from the original. Can Worker-Dr. 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 Gender Identity Not on file Sexual [...] Flex Sig/CT Colonography Q 5 years 1995 ZOSTER VACCINE (2 of 3) 10/27/2013 09/01/2013 FIT/FOBT Q 1 year 06/04/2014 06/04/2013 PNEUMOCOCCAL VACCINE 50+ YEA RS (2 of 2 - PCV20 or PCV21) 09/12/2016 09/12/2015, 08/07/2010 COLORECTAL SCREENING 08/02/2020 08/02/2010, 08/02/20 10 Colorectal Cancer Screening 08/02/2020 DTAP/TDAP/TD VACCINES (2 - T d or Tdap) 08/09/2021 08/09/2011 INFLUENZA VACCINE (#1) 2025 5, 09/01/2013, 07/02/2012, Additional history exists RSV VACCINE (60+ or ) (1 - 1-dose 75+ series) 2025 Procedures Procedure Name Priority Date/Time Associated Diagnosis [...] Most Recently Relevant to Health Maintenance Insurance [facility] OPTIONS PPO [id number] Member Subscriber Plan / Payer (Ef fective 2021-Present) Name:Aj Sosa Jr. Relation to Subscriber:Self Name:Aj Sosa Jr. Payer ID:[id number] (NAIC) Type:PPO Address: [address] [place] [id number] [place] [id number]
--- OUTSIDE RECORDS SUMMARY | 2025-07-19 09:44 | XMS_ITS | Encounter Summary ---
Author Organization [facility] Address [address] [place] [address] Phone Care Team Providers Care Order Fulfillment Specialist Name Role Phone ChikaAndreas boyd Primary Care Provider [phone] Encounter Details Date Type Department Care Team (Late st Contact Info) Description 07/05/2025 Telephone [facility] Medicine Cardiology [address] [facility] Advanced Medicine 8th [place] [address] [place] [address] Daniel Cohen MD [address] [facility] [address] [place], [place] [id number] Social History Tobacco Use Types Packs/Day Years Used Date Smoking Tobacco: Never Smokeless Tobacco: Never [facility] Utilities Answer Date Recorded In the past 12 months has [employer] electric, gas, oil, or water company threatened [...] often do you attend chur ch or shinto services? Never 11/25/2023 Do you belong to any clubs o r organizations such as gnosticist groups, unions, fraternal or athletic groups, or [...] on file Legal Sex Male 1:43 AM SKI GUIDE Gender Identity Not on file Sexual Orientation Not on file documented as of this encounter Miscellaneous Notes * Telephone Encounter - Meredith Barron RN - 07/05/2025 11:36 AM CDT See enc 06/25/25. * Telephone Encounter - Isa Malik - 07/05/2025 11:16 AM CDT Vicki Pt is calling to give BP readings. documented in this encounter Plan of Treatment Not on file documented as of this encounter Visit Diagnoses Not on filedocumented in this encounter Care Teams Order Fulfillment Specialist Relationship Specialty Start Date End Date Andreas Farr DO PCP - General Internal Medicine 02/26/24 documented as of this encounter
--- OUTSIDE RECORDS SUMMARY | 2025-07-19 09:44 | XMS_ITS | Clinical Summary ---
Author Organization [facility] Address [address] [facility] [place] [address] Care Team Providers Care Shingle Packer Name Role Phone Allan Shields DO Primary Care Provider Source Comments [facility],non-owned Affiliates and Associated Physician Practices is amultiple site organization consisting of ambulatory clinics and hospital sitesin [place], [place], [place] and [place]. This disclosure is being madepursuant to the Care Everywhere program and may not contain all information available regarding this patient. 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 Gender Identity Not on file Sexual Orientation Not on file Last Filed Vital Signs Vital Sign Reading Time Taken Comments Blood Pressure 160/88 09/08/2009 1:27 PM HOT WORKER Pulse 72 09/08/2009 1:27 PM HOT WORKER Temperature - - Respiratory Rate - - Oxygen Saturation - - Inhaled Oxygen Concentration - - Weight 109.8 kg (242 lb) 09/08/2009 1:27 PM HOT WORKER Height 174 cm (5' 8.5) 09/08/2009 1:27 PM HOT WORKER Body Mass Index 36.26 09/08/2009 1:27 PM HOT WORKER Plan of Treatment Health Maintenance Due Date [...] of 2) 2000 LIPID TESTING 12/21/2013 12/21/2008 DEPRESSION SCREENING 10/07/2024 COVID-19 VACCINE (1 - 2023-2 5 season) 2025 INFLUENZA VACCINE (#1) 2025 10/06/2009 Respiratory Syncytial [...] PM CDT Narrative Resulting Agency Comment [facility] [address] [facility] [id number] Gab Lamar MD LAB - CHEMISTRY ORDERABLES Fi nal Result [facility] INSURANCE BILL [address] [place] [address] from Last 3 Months or Most Recently Relevant to Health Maintenance Insurance MEDICARE [employer] MANAGED MEDICARE ADV Care Teams Shingle Packer Relationship Specialty Start Date End Date Allan Shields DO [address] [facility] [address] [place] [address] PCP - General 02/24/18
[2025-07-19 10:50] LABS: Parathyroid Intact 73.5 pg/mL (14.5-75.2)
[2025-07-19 10:55] LABS: Total Protein Urine Random < 5 mg/dL
[2025-07-19 10:56] LABS: Ur Ttl Prot Creatinine Ratio < 0.03 mg/mg (0-0.20)
[2025-07-19 10:59] LABS: Albumin Level 4.2 g/dL (3.5-5.1); Anion Gap 7 mmol/L (4-12); Blood Urea Nitrogen 23 mg/dL (9-20); Calcium 8.8 mg/dL (8.4-10.2); Carbon Dioxide 27 mmol/L (22-30); Chloride 105 mmol/L (98-107); Estimated Glomerular Filt Rate 46; Glucose 105 mg/dL (65-110); Potassium 4.4 mmol/L (3.4-5.0); Sodium 139 mmol/L (137-145)
== END 2025-07-19 09:16 | disposition home or self-care (01) ==
LOC: ANHLAB 09:16
PROVIDERS: PCP Internal Medicine; Visit Provider Internal Medicine Nephrology
DX: I12.9 Hypertensive chronic kidney disease with stage 1 through stage 4 chronic kidney disease, or unspecified chronic kidney disease (principal); N18.32 Chronic kidney disease, stage 3b; N25.81 Secondary hyperparathyroidism of renal origin; E55.9 Vitamin D deficiency, unspecified
CPT/HCPCS: 36415; 80069; 82306; 82570; 83970; 84156